=== PATIENT | male | born 1940 | race Caucasian/White ===

== ENCOUNTER → 2017-09-08 10:13 | Outpatient (CLI) | payer MEDICARE, BC, SELFPAY ==
[2017-09-08 12:00] LABS: AST(SGOT) 18 U/L (15-37); Alanine Aminotransfer ALT/SGPT 26 U/L (16-61); Albumin, Serum 4.1 g/dL (3.2-5.0); Alkaline Phosphatase 67 U/L (45-117); Bilirubin, Direct 0.35 mg/dL (0.00-0.30); Cholesterol 119 mg/dL (200); Globulin 3.2 g/dL (2.2-4.2); High Density Lipoprotein 34 mg/dL; Protein, Total 7.3 g/dL (6.4-8.2); Triglycerides 180 mg/dL; Very Low Density Lipoprotein 36 mg/dL (5-40)
== END ==
PROVIDERS: Family Provider Family Medicine; PCP Family Medicine; Visit Provider Internal Medicine Cardiovascular Disease
DX: E78.5 Hyperlipidemia, unspecified (principal); Z79.899 Other long term (current) drug therapy
CPT/HCPCS: 36415; 80061; 80076

== ENCOUNTER → 2017-09-23 12:51 | Outpatient (CLI) | payer MEDICARE, BC, SELFPAY ==
--- NOTE | 2017-10-06 11:31 | LEAS ---
Arterial Study - Arterial Study Arterial Study: next Date of scan 09/23/[address] Nolen History: Patient with some mild claudication type symptoms with known previous heart disease. Interpretation: Right lower extremity with normal pulsatile flow from the thigh down to the calf ankle out through the digits duplex at the ankle shows what appears to be triphasic waveform and BREANNA 1.15 the PT 1.13 of the DP. Next Left lower extremity with normal pulsatile flow down from the thigh calf ankle out through the digits duplex shows triphasic flow at the ankle with an BREANNA 1.06 of the PT 1.1 to the DP Impression: 1. Bilateral lower extremities with no evidence of significant arterial occlusive disease at rest with an BREANNA 1.15 in the right 1.12 on the left
== END ==
PROVIDERS: Family Provider Family Medicine; PCP Family Medicine; Visit Provider Physician Assistant Medical
DX: I73.9 Peripheral vascular disease, unspecified (principal)
CPT/HCPCS: 93923

== ENCOUNTER → 2018-04-13 09:49 | Outpatient (CLI) | payer MEDICARE, BC, SELFPAY ==
[2018-04-13 10:31] LABS: AST(SGOT) 27 U/L (15-37); Alanine Aminotransfer ALT/SGPT 28 U/L (16-61); Albumin, Serum 4.1 g/dL (3.2-5.0); Alkaline Phosphatase 61 U/L (45-117); Bilirubin, Direct 0.36 mg/dL (0.00-0.30); Cholesterol 111 mg/dL (200); Globulin 3.1 g/dL (2.2-4.2); High Density Lipoprotein 38 mg/dL; Protein, Total 7.2 g/dL (6.4-8.2); Triglycerides 137 mg/dL; Very Low Density Lipoprotein 27 mg/dL (5-40)
--- OUTSIDE RECORDS SUMMARY | 2018-06-18 02:06 | XMS RPT_ITS ---
:1940 Author Organization OHIP Care Team Providers Name Role Phone Sujit Porrasril Attending Unavailable Chiquita, [place] Referring Unavailable ASAEL, LOREN Primary Care Unavailable Rohini Ascencio Attending Unavailable Rohini Ascencio Referring Unavailable ASAEL, LOREN Primary Care Unavailable Rohini Ascencio Attending Unavailable ASAEL LOREN Referring Unavailable ASAEL, LOREN Primary Care Unavailable Annamaria Austin Attending Unavailable Chiquita, [place] Attending Unavailable Chiquita, Pastor Referring Unavailable NAANDRESSA, LOREN Primary Care Unavailable Rohini Ascencio Attending Unavailable Chiquita, Pastor Attending Unavailable ASAEL LOREN Referring Unavailable PROBLEMS PROBLEMS DATE TYPE CONDITION / CODE ATTENDING STATUS SOURCE 04/21/2018 Unknown Z98.890 - Other Chiquita, [place] Active [place] [facility] states / Repository Z98.890(ICD-10) 04/21/2018 Unknown Z95.3 - Presence of Chiquita, [place] Active [place] xenogenic heart [facility] valve / Hospital Z95.3(ICD-10) Repository 04/21/2018 Unknown Z95.1 - Presence of Chiquita, Pastor Active [place] aortocoronary bypass [facility] graft / Hospital Z95.1(ICD-10) Repository 04/21/2018 Unknown E78.00 - Pure Chiquita, [place] Active [place] hypercholesterolemia Community , unspecified / Hospital E78.00(ICD-10) Repository 04/21/2018 Unknown E78.5 - Chiquita, Pastor Active [place] Hyperlipidemia, Community unspecified / Hospital E78.5(ICD-10) Repository 09/15/2017 Unknown I73.9 - Peripheral Ascencio, Active [place] vascular disease, Rohini Madsen [facility] unspecified / Hospital I73.9(ICD-10) Repository PROCEDURES PROCEDURES No Procedure Records FoundRESULTS RESULTS CARDIOLOGY VISIT Observed: 04/21/2018 Status: F Source: [place] REPORT 10:43 AM [facility] REPOSITORY [facility] [address] [place] [address]. [address] [place] [address] OFFICE VISIT Date of Service: 04/21/18 MR#: [id number] Acct: [id number] Name: MAXIMILIANO GUZMAN Rep #: [id number] : 1940 Provider: Pastor Porras MD Age/Sex: 78/M Location: [facility] Status: Signed HPI HPI Chief Complaint: Follow up Details: MAXIMILIANO GUZMAN, is a 78 M who presents to the office today for a cardiovascular follow-up. He has a history of coronary artery disease with history of bypass surgery. He had an ESTRELLA to the LAD. He also has a history of aortic valve disease with a [place] bioprosthetic aortic valve. From a cardiac standpoint, patient is doing well. He does complain of leg fatigue when he walks, he finds that he needs to stop and rest before resuming. He has also been shoveling snow and has not had any problems regarding this. He does not have any chest discomfort/heaviness/tightness. His exercise tolerance is stable for his age. He does not have any worsening symptoms of shortness of breath. He denies any PND. He does not have any orthopnea. He does not have any symptoms of congestive heart failure. He does not have any palpitations that he is aware of. He has had some occasional chest discomfort which I do not think his coronary in origin. He does not have any lightheadedness or dizziness. He does not have any near-syncope or syncope. He does not have any lower extremity edema. His physical exam demonstrates clear lung llanos regular rate and rhythm a soft 1/6 systolic murmur noted left sternal border and no pedal edema. 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 Accompanied by: none Is patient in pain?: Yes Allergies Penicillins Allergy (Intermediate, Verified 04/21/18 10:20) rash sulfamethoxazole [From Bactrim] Allergy (Intermediate, Verified 04/21/18 10:20) rash trimethoprim [From Bactrim] Allergy (Intermediate, Verified 04/21/18 10:20) rash lidocaine Allergy (Unknown, Verified 04/21/18 10:20) unknown acetaminophen [From Percocet] Adverse Reaction (Intermediate, Verified 04/21/18 10:20) GI upset oxycodone [From Percocet] Adverse Reaction (Intermediate, Verified 04/21/18 10:20) GI upset Medications aspirin 81 mg tablet,delayed release 81 mg PO QDAY 03/11/17 [History Confirmed 04/21/18] atorvastatin 10 mg tablet 10 mg PO QDAY #30 tab 03/26/17 [Rx Confirmed 04/21/18] metoprolol tartrate 25 mg tablet 25 mg PO .COMPLEX #30 tab 03/26/17 [Rx Confirmed 04/21/18] clindamycin HCl 300 mg capsule 300 mg PO .COMPLEX #2 cap 06/22/17 [Rx Confirmed 04/21/18] nitroglycerin 0.4 mg sublingual tablet 0.4 mg SUBLINGUAL Q5- 15M PRN #25 tab 06/22/17 [Rx Confirmed 04/21/18] multivitamin tablet 1 tab PO DAILY 04/21/18 [History Confirmed 04/21/18] [facility] Medical History Atherosclerotic heart disease of [place] coronary artery without angina pectoris (Chronic) Nonrheumatic aortic (valve) stenosis (Chronic) Hx of renal calculi (Resolved) Surgical History History of ear surgery (Resolved) Hx of cholecystectomy (Resolved) H/O aortic valve replacement (Chronic 07/17/05) History of coronary artery bypass graft x 1 (Chronic 07/17/05) History of left heart catheterization (Chronic 03/29/10) History of aortic valve replacement with bioprosthetic valve (Chronic) Hx of fracture of ankle (Resolved) Hx of vasectomy (Resolved) Family History Mother , age 82 lung problems No problems noted. Father , age 40 ruptured appendix No problems noted. Social History Smoking Status: Former smoker alcohol intake: never caffeine: Yes Type: coffee Number of servings: 2 ROS Const Const: Negative for fatigue, weakness, night sweats, excessive sweating, frequent falls, headache(s) or daytime sleepiness Eyes Eyes: Negative for loss of peripheral vision, transient loss of vision, blind spots, double vision or blurry vision ENT ENT: Negative for headache(s), dizziness, balance problems, Nosebleed/epistaxis, tongue swelling or lip swelling Cardio Chest Pain: Yes (patient states he gets occasional chest pain when it gets cold outside) Frequency: weekly Duration: minutes Palpitations: No Edema: None, Bilateral Muscle aches with walking: None Resp Respiratory: Positive for SOB at rest and SOB with activity; negative for SOB orthopnea\SOB lying down, Cough or paroxysmal nocturnal dyspnea GI GI: Negative nausea, vomiting, heartburn, black,tarry stools or bright, red blood in stools : Negative for hematuria Musc Musc: Negative for balance problems, muscle aches/ myalgia, muscle weakness or joint pain Skin Skin: Negative non-healing lesions, unusual bruising or rash Neuro Neuro: Negative for weakness, frequent falls, headache(s), double vision, dizziness, lightheadedness, orthostatic symptoms, blurry vision or lack of coordination Adi Hematologic/Lymphatic: Negative for easy bruising or easy bleeding Endo Endo: Negative for fatigue, excessive sweating, cold intolerance, heat intolerance, increased thirst/drinking or hair loss Psych Psych: Negative for anxiety or depression Allergy Allergy/Immunology: Negative for throat swelling, Negative for tongue swelling, Negative for hives, Negative for rash, Negative for lip swelling Cardiology Exam Const Appearance: cooperative, healthy appearing, well developed, well groomed and no acute distress Nutritional Appearance: well nourished and average body habitus Orientation: alert, awake and oriented x3 Head Head: normal to inspection, normocephalic and atraumatic Ears: hearing grossly normal bilaterally and external ears normal Nose: external nose normal, nasal mucous membranes and turbinates normal, nares normal, septum normal, no nasal discharge Face and Sinus: face symmetric Mouth: oral mucosae normal, tongue normal, oropharynx normal and moist mucous membranes Teeth and gingiva: dentition normal Throat: posterior oropharynx normal, tonsils normal and uvula midline Eyes General: appearance normal, both eyes and all related structures Eyelids: eyelids normal Conjunctivae: conjunctivae normal Pupils: PERRL, normal by confrontation and accommodation normal EOM: EOM intact bilaterally Neck Neck: normal visual inspection, trachea midline and no JVD JVD: +5 Carotids: normal carotid upstroke and bounding pulses Chest Chest inspection: normal inspection of the chest, symmetric chest movement and normal respiratory effort Auscultation: Bilateral: Clear to Auscultation Cardio Palpation: normal PMI Rate: regular rate Rhythm: regular rhythm Heart sounds: S1 normal, S2 normal and normal, physiologic split S2; negative rub, gallop or murmur GI GI: normal to inspection, soft, no hepatosplenomegaly and bowel sounds present Neuro General: alert, awake, oriented x3, no focal sensory deficit, gait normal and moves all extremities Skin Skin: no rashes or lesions noted Extremities Pulses: Normal: Right Femoral Pulse, Left Femoral Pulse, Right Dorsalis Pedis Pulse, Left Dorsalis Pedis Pulse, Right Posterior Tibial Pulse, Left Posterior Tibial Pulse, Right Radial Pulse, Left Radial Pulse Lower Extremity Edema: None: Bilateral Musculoskel Musculoskeletal: No joint tenderness Psych Psychological: normal affect Assessment AND Plan 1. History of aortic valve replacement with bioprosthetic valve Z95.3 Plan He does have a history of aortic valve replacement with a bioprosthetic valve. His last echocardiographic evaluation was 3 years ago and I recommend that we repeat this. His aortic bioprosthetic valve was placed in 2005. He will continue with antibiotic prophylaxis. 2. History of coronary artery bypass graft x 1 Z95.1 Plan He is status post coronary artery bypass surgery. He has had no evidence of angina the plan is for him to continue the current medical therapy his last stress test was in 2016 during which no evidence of angina or ischemia was noted. Wanted to 3. Pure hypercholesterolemia E78.00 Plan He does have a history of hyperlipidemia. He has been taking his atorvastatin half a tablet every other day and I am suggesting that he take 1 tablet equaling 10 mg every other day his most recent lipid profile demonstrated a total cholesterol 111, HDL of 38 and LDL of 46. Thank you for allowing me to participate in the care of your patient. Please don't hesitate to call if any issues arise Plan Detail Other Orders Orders: Other Medications New: Follow Up 6 Months (mmm) Coding Level of Care Code Off vis,est,level 3 Diagnoses History of aortic valve replacement with bioprosthetic valve Z95.3 History of coronary artery bypass graft x 1 Z95.1 Pure hypercholesterolemia E78.00 Hyperlipidemia type: pure hypercholesterolemia Coding Level of Care Code Off vis,est,level 3 Diagnoses History of aortic valve replacement with bioprosthetic valve Z95.3 History of coronary artery bypass graft x 1 Z95.1 Pure hypercholesterolemia E78.00 Hyperlipidemia type: pure hypercholesterolemia Supplemental Info Supplemental Information Labs LDL Cholesterol 46 mg/dL (0-130) 04/13/18 HDL Cholesterol 38 mg/dL (40-) L 04/13/18 Triglycerides 137 mg/dL (-199) 04/13/18 VLDL Cholesterol 27 mg/dL (5-40) 04/13/18 Diagnostics Echocardiogram 04/01/15 Stress Test Nuclear Medicine 03/09/16 Chest X-Ray 03/12/17 04/21/18 1043 <Electronically signed by Pastor Porras MD> Date Pastor Porras MD Cosigner Signature: Date (if applicable) CC: Loren Brunson MD LIVER PROFILE Collected: 04/13/2018 Status: F Source: [place] 9:54 AM [facility] REPOSITORY TYPE CODE TESTS RESULT OUT OF RANGE REFERENCE UNITS LAB L501.1500 6.4-8.2 g/dL Normal T PROT 7.2 LAB L501.1800 3.2-5.0 g/dL Normal ALB 4.1 LAB L501.1950 2.2-4.2 g/dL Normal GLOB 3.1 LAB L501.4100 15-37 U/L Normal AST 27 Result Comment: Moderate Hemolysis, Result may be falsely increased. LAB L501.4305 45-117 U/L Normal ALK P 61 LAB L501.4405 16-61 U/L Normal ALT 28 LAB L501.4600 0.20-1.00 mg/dL High T BILI 2.30 LAB L501.4700 0.00-0.30 mg/dL High D BILI 0.36 Performed By: #### L500.3400, L500.4100 #### [facility] [address] [place], [address] LIPID PROFILE Collected: 04/13/2018 Status: F Source: [place] 9:54 AM [facility] REPOSITORY TYPE CODE TESTS RESULT OUT OF RANGE REFERENCE UNITS LAB L501.4900 200 mg/dL Normal CHOL 111 Result Comment: <200 mg/dL Desirable 200-240 mg/dL Borderline >240 mg/dL High Risk LAB L501.5000 mg/dL Normal TRIG 137 Result Comment: The drugs N-Acetylcysteine and Metamizole may falsely depress this assay. Serum Triglycerides Reference Interval Normal <150 mg/dL Borderline high 150 - 199 mg/dL High 200 - 499 mg/dL Very High > or = 500 mg/dL LAB L501.6400 mg/dL Low HDL 38 Result Comment: The drugs N-Acetylcysteine and Metamizole may falsely depress this assay. Reference Range HDL <40 mg/dL Low HDL Cholesterol HDL >or= 60 mg/dL High HDL Cholesterol LAB L501.6500 0-130 mg/dL Normal LDL 46 LAB L501.6600 5-40 mg/dL Normal VLDL 27 Performed By: #### L500.3400, L500.4100 #### [facility] [address] [place], [address] LOWER EXT ARTERIAL Observed: 10/06/2017 Status: F Source: [place] STUDY 11:33 AM [facility] REPOSITORY [facility] Cardiovascular Services [address] [address] 10/06/17 1131 MR#: [id number] Acct: [id number] Name: MAXIMILIANO GUZMAN Rep #: [id number] : 1940 77 From: Tao Nolen MD Attending Dr: Rohini Ascencio Status: REG CLI Ordering Dr: Date: 10/06/17 Location: [facility] Sex: M C Admitted: Arterial Study - Arterial Study Arterial Study: next Date of scan 09/23/[address] Nolen History: Patient with some mild claudication type symptoms with known previous heart disease. Interpretation: Right lower extremity with normal pulsatile flow from the thigh down to the calf ankle out through the digits duplex at the ankle shows what appears to be triphasic waveform and BREANNA 1.15 the PT 1.13 of the DP. Next Left lower extremity with normal pulsatile flow down from the thigh calf ankle out through the digits duplex shows triphasic flow at the ankle with an BREANNA 1.06 of the PT 1.1 to the DP Impression: 1. Bilateral lower extremities with no evidence of significant arterial occlusive disease at rest with an BREANNA 1.15 in the right 1.12 on the left 10/06/17 1133 <Electronically signed by Tao Nolen MD> Date Tao Nolen MD CC: Loren Brunson MD; Rohini Ascencio Date Dictated: 10/06/17 113 Date Transcribed: 10/06/17 113 Side Piece Coverer: OTTO Signed CARDIOLOGY VISIT Observed: 09/16/2017 Status: F Source: [place] REPORT 7:46 AM [facility] REPOSITORY [facility] [address] [place] [address] OFFICE VISIT Date of Service: 09/15/17 MR#: [id number] Acct: [id number] Name: MAXIMILIANO GUZMAN Rep #: [id number] : 1940 Provider: Rohini Ascencio Age/Sex: 77/M Location: [facility] Status: Signed HPI HPI Details: MAXIMILIANO GUZMAN, is a 77 M who presents to the office today for cardiovascular follow-up. He has a history of coronary artery disease with history of bypass surgery. He had an ESTRELLA to the LAD. He also has a history of aortic valve disease with a [place] bioprosthetic aortic valve. From a cardiac standpoint, patient is doing well. He does complain of leg fatigue when he walks, he finds that he needs to stop and rest before resuming. He does not have any chest discomfort/heaviness/tightness. His exercise tolerance is stable for his age. He does not have any worsening symptoms of shortness of breath. He denies any PND. He does not have any orthopnea. He does not have any symptoms of congestive heart failure. He does not have any palpitations that he is aware of. He does not have any lightheadedness or dizziness. He does not have any near-syncope or syncope. He does not have any lower extremity edema. Intake Vital Signs09/15/17 Height 5 ft 11 in 09/15/17 Weight: 217 lb 09/15/17 Body Mass Index (BMI) 30.2 Intake Visit Reasons: 6 M FU Accompanied by: none Is patient in pain?: No Allergies Penicillins Allergy (Intermediate, Verified 03/12/17 09:15) rash sulfamethoxazole [From Bactrim] Allergy (Intermediate, Verified 03/12/17 09:15) rash trimethoprim [From Bactrim] Allergy (Intermediate, Verified 03/12/17 09:15) rash lidocaine Allergy (Unknown, Unverified 03/12/17 09:15) unknown acetaminophen [From Percocet] Adverse Reaction (Intermediate, Verified 03/12/17 09:15) GI upset oxycodone [From Percocet] Adverse Reaction (Intermediate, Verified 03/12/17 09:15) GI upset Medications aspirin 81 mg tablet,delayed release 81 mg PO QDAY 03/11/17 [History Confirmed 09/15/17] atorvastatin 10 mg tablet 10 mg PO QDAY #30 tab 03/26/17 [Rx Confirmed 09/15/17] metoprolol tartrate 25 mg tablet 25 mg PO .COMPLEX #30 tab 03/26/17 [Rx Confirmed 09/15/17] clindamycin HCl 300 mg capsule 300 mg PO .COMPLEX #2 cap 06/22/17 [Rx Confirmed 09/15/17] nitroglycerin 0.4 mg sublingual tablet 0.4 mg SUBLINGUAL Q5- 15M PRN #25 tab 06/22/17 [Rx Confirmed 09/15/17] Ejection fraction %: 55 to 59 PFSH Medical History Atherosclerotic heart disease of [place] coronary artery without angina pectoris (Chronic) History of aortic valve replacement with bioprosthetic valve (Chronic) Nonrheumatic aortic (valve) stenosis (Chronic) Hx of renal calculi (Resolved) Surgical History History of ear surgery (Resolved) Hx of cholecystectomy (Resolved) H/O aortic valve replacement (Chronic 07/17/05) History of coronary artery bypass graft x 1 (Chronic 07/17/05) History of left heart catheterization (Chronic 03/29/10) Hx of fracture of ankle (Resolved) Hx of vasectomy (Resolved) Family History Mother , age 82 lung problems No problems noted. Father , age 40 ruptured appendix No problems noted. Social History Smoking Status: Former smoker alcohol intake: never caffeine: Yes Type: coffee Number of servings: 2 ROS Const Const: Negative for weakness, fatigue, fever(s) or headache(s) Eyes Eyes: Negative for blind spots, loss of peripheral vision or transient loss of vision ENT ENT: Negative for headache(s), dizziness, tinnitus or Nosebleed/epistaxis Cardio Chest Pain: No Palpitations: No Edema: None Muscle aches with walking: Bilateral Resp Respiratory: Negative for SOB with activity, SOB at rest, SOB orthopnea\SOB lying down or Cough GI GI: Negative nausea, vomiting, heartburn or vomiting blood/hematemesis : Negative for hematuria Musc Musc: Negative for muscle aches/ myalgia Neuro Neuro: Negative for weakness, headache(s), dizziness, near syncope, syncope, lightheadedness or orthostatic symptoms Adi Hematologic/Lymphatic: Negative for easy bleeding Endo Endo: Negative for fatigue Cardiology Exam Const Appearance: cooperative, no acute distress and well developed Orientation: alert, awake and oriented x3 Head Head: normocephalic and atraumatic Mouth: moist mucous membranes Eyes General: appearance normal, both eyes and all related structures Conjunctivae: conjunctivae normal Pupils: PERRL EOM: EOM intact bilaterally Neck Neck: normal visual inspection, no lymphadenopathy and no JVD Carotids: Negative bruit Neck Mass: Negative Neck mass Chest Chest inspection: normal inspection of the chest, symmetric chest movement and midline sternotomy incision Auscultation: Bilateral: Clear to Auscultation Cardio Palpation: normal PMI Rate: regular rate Rhythm: regular rhythm Heart sounds: S1 normal, S2 normal and murmur; negative rub or gallop Murmur: soft, Grade 2/6 and mid systolic GI GI: normal to inspection, soft, no hepatosplenomegaly and bowel sounds present; negative tender Neuro General: alert, awake, oriented x3, CN's II-XI intact bilaterally and moves all extremities Extremities Pulses: Normal: Right Posterior Tibial Pulse, Left Posterior Tibial Pulse, Right Radial Pulse, Left Radial Pulse Lower Extremity Edema: None: Bilateral Psych Psychological: normal affect Supplemental Info Echocardiogram in 2016 demonstrated Normal LV size. Left ventricular systolic function is normal. The estimated ejection fraction is 55 %. Mild to moderately dilated aortic root. Mild aortic stenosis. Calculated aortic valve area (continuity equation) is 1.7cm Compared to prior study, there is no significant change. Stress test in 2016 was negative for ischemia at a moderate workload. Assessment AND Plan 1. Atherosclerosis of [place] coronary artery of [place] heart without angina pectoris I25.10 RONDA Hoyos Stable, from a cardiac standpoint patient does not have any symptoms of angina. We recommend that they continue with current aggressive medical management and risk factor modification. 2. Nonrheumatic aortic (valve) stenosis I35.0 RONDA Hoyos Recent echocardiogram has been reviewed. He does have a bioprosthetic aortic valve. He will continue with antibiotic prophylaxis. We will continue to monitor by history, exam and echocardiograms as deemed appropriate. 3. Pure hypercholesterolemia E78.00; E78.0 RONDA Hoyos Recent lipid profile demonstrates total cholesterol 119, HDL 34, LDL 49. Patient will continue with current medical management. 4. 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 Will obtain lower extremity arterial studies. Orders Orders: Plan Detail Additional Comments - RONDA Erazo The above patient was discussed with Dr. Porras, he agrees with plan of care. Thank you for allowing us to participate in patient's plan of care, if you have any questions please do not hesitate to call. This note was generated using a voice recognition system and there may be incorrect words, spelling or punctuation errors that were not noted when reviewing the office note prior to saving. Follow Up 6 Months (INPATIENT CODER) Coding Level of Care Code Off vis,est,level 4 Diagnoses Atherosclerosis of [place] coronary artery of [place] heart without angina pectoris I25.10 [place] vs. 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 09/15/17 1126 <Electronically signed by Rohini BOND> Date Rohini BOND 09/16/17 0746<Electronically signed by Pastor Porras MD> Cosigner Signature: Date (if applicable) Pastor Porras MD CC: Loren Brunson MD LIVER PROFILE Collected: 09/08/2017 Status: F Source: [place] 10:19 AM [facility] REPOSITORY TYPE CODE TESTS RESULT OUT OF RANGE REFERENCE UNITS LAB L501.1500 6.4-8.2 g/dL Normal T PROT 7.3 LAB L501.1800 3.2-5.0 g/dL Normal ALB 4.1 LAB L501.1950 2.2-4.2 g/dL Normal GLOB 3.2 LAB L501.4100 15-37 U/L Normal AST 18 LAB L501.4305 45-117 U/L Normal ALK P 67 LAB L501.4405 16-61 U/L Normal ALT 26 LAB L501.4600 0.20-1.00 mg/dL High T BILI 1.80 LAB L501.4700 0.00-0.30 mg/dL High D BILI 0.35 Performed By: #### L500.3400, L500.4100 #### [facility] [address] [place], [place], [id number] LIPID PROFILE Collected: 09/08/2017 Status: F Source: [place] 10:19 AM [facility] REPOSITORY TYPE CODE TESTS RESULT OUT OF RANGE REFERENCE UNITS LAB L501.4900 200 mg/dL Normal CHOL 119 Result Comment: <200 mg/dL Desirable 200-240 mg/dL Borderline >240 mg/dL High Risk LAB L501.5000 mg/dL Normal TRIG 180 Result Comment: The drugs N-Acetylcysteine and Metamizole may falsely depress this assay. Serum Triglycerides Reference Interval Normal <150 mg/dL Borderline high 150 - 199 mg/dL High 200 - 499 mg/dL Very High > or = 500 mg/dL LAB L501.6400 mg/dL Low HDL 34 Result Comment: The drugs N-Acetylcysteine and Metamizole may falsely depress this assay. Reference Range HDL <40 mg/dL Low HDL Cholesterol HDL >or= 60 mg/dL High HDL Cholesterol LAB L501.6500 0-130 mg/dL Normal LDL 49 LAB L501.6600 5-40 mg/dL Normal VLDL 36 Performed By: #### L500.3400, L500.4100 #### [facility] [address] [facility]. [place], [place], [address] ALLERGIES ALLERGIES DATE TYPE / CODE NAME / CODE REACTION SEVERITY SOURCE 04/21/2018 Drug Penicillins/ Rash MO [facility] Allergy/4160 [id number]([facility] 35953(SNOMED XNORM) Repository CT) 04/21/2018 Drug lidocaine/F0 Unknown Unknown [facility] Allergy/4160 [id number]([facility] [address]75(SNOMED ORM) Repository CT) 04/21/2018 Drug oxycodone/F0 gi upset [facility] Allergy/4160 [id number]([facility] [address](SNOMED ORM) Repository CT) 04/21/2018 Drug acetaminophe gi upset [facility] Allergy/4160 n/[id number] [facility](SNOMED (RXNORM) Repository CT) 04/21/2018 Drug sulfamethoxa Rash [facility] Allergy/4160 zole/[id number] [facility](SNOMED 827(RXNORM) Repository CT) 04/21/2018 Drug trimethoprim Rash [place] [facility] [place] [facility] Allergy/4160 /[id number]( [facility](SNOMED RXNORM) Repository CT) ENCOUNTERS ENCOUNTERS ADMIT/DISCHARGE ACCOUNT ADMITTING ENCOUNTER LOCATION SOURCE NUMBER CLASS 04/21/2018/ [id number] Ambulatory BMSBuilding:B [facility] 8 [place].[facility] Repository 04/13/2018 [id number] Ambulatory [facility] 0 [facility] ing:LAB Repository 09/23/2017 [id number] Amb[place] [facility] ing:[facility] Repository 09/15/2017/ [id number] Ambulatory BMSBuilding:B [place] 8 6 [place].[facility] Repository 09/10/2017 [id number] Ambulatory B[place] 8 [facility] Repository 09/10/2017 [id number] Ambulatory BMSBuilding:B [place] 9 [place].[facility] Repository 09/08/2017 [id number] Ambulatory [place] 6 [facility] ing:LAB Repository PAYERS PAYERS ENCOUNTER GUARANTOR PAYER SUBSCRIBER SOURCE 04/21/2018 MAXIMILIANO Amezcua Primary MAXIMILIANO [facility] [id number] Insurance:MEDICARE JONESDOB: [facility] ALCIRA PART A [facility] [id number] Number: Repository [id number]: [phone] [id number] [phone] () Date:2017-09-15 04/21/2018 Secondary MAXIMILIANO [place] Insurance:ANTHEMPolic JONESDOB: [facility] y Number: [id number] [id number] Repository Date:0910-53-[address], [place] [address]IQ: 04/21/2018 Tertiary NOT GIVENUNK [place] Insurance:SELF PAY [facility] Number: Effective Repository Date:2018-04-21 04/13/2018 MAXIMILIANO A Primary MAXIMILIANO A [place] [id number] Insurance:MEDICARE JONESDOB: Community ALCIRA PART A [facility] [id number] Number: Repository [id number]: [phone] [id number] [phone] (HP) Date:2018-04-13 04/13/2018 Secondary MAXIMILIANO A [place] Insurance:ANTHEMPolic JONESDOB: Community y Number: [id number] [id number] Repository Date:8000-39-52[address], [place] [address]VT: 04/13/2018 Tertiary NOT GIVENUNK [place] Insurance:SELF PAY [facility] Number: Effective Repository Date:2018-04-13 09/23/2017 MAXIMILIANO A Primary MAXIMILIANO A [place] [id number] Insurance:MEDICARE JONESDOB: Community ALCIRA PART A [facility] [id number] Number: Repository [id number]: [phone] [id number] [phone] (HP) Date:2017-09-15 09/23/2017 Secondary MAXIMILIANO A [place] Insurance:ANTHEMPolic JONESDOB: Community y Number: [id number] Hospital [id number] Repository Date:9279-34-63[address], [place] [address]EF: 09/23/2017 Tertiary NOT GIVENUNK [place] Insurance:SELF PAY [facility] Number: Effective Repository Date:2017-09-15 09/15/2017 MAXIMILIANO A Primary MAXIMILIANO A [place] [id number] Insurance:MEDICARE JONESDOB: Community ALCIRA PART A [facility] [id number] Number: Repository [id number]: [phone] [id number] [phone] (HP) Date:2017-08-16 09/15/2017 Secondary MAXIMILIANO A [place] Insurance:ANTHEMPolic JONESDOB: Community y Number: [id number] Hospital [id number] Repository Date:6960-82-91[address] [place] [address] [place] [address]VU: 09/15/2017 Tertiary NOT GIVENUNK [place] Insurance:SELF PAY [facility] Number: Effective Repository Date:2017-09-15 09/10/2017 MAXIMILIANO A Primary MAXIMILIANO A [place] [id number] Insurance:MEDICARE JONESDOB: Community ALCIRA PART A [facility] [id number] Number: Repository [id number]: [phone] [id number] [phone] () Date:2017-09-10 09/10/2017 Secondary MAXIMILIANO A [place] Insurance:ANTHEMPolic JONESDOB: Community y Number: [id number] Hospital [id number] Repository Date:8820-99-10SC [address] [place] [address]JS: 09/10/2017 Tertiary NOT GIVENUNK [place] Insurance:SELF PAY [facility] Number: Effective Repository Date:2017-09-10 09/10/2017 MAXIMILIANO A Primary MAXIMILIANO A [place] [id number] Insurance:MEDICARE JONESDOB: Community ALCIRA PART A [facility] [id number] Number: Repository [id number]: [phone] [id number] [phone] (HP) Date:2017-03-12 09/10/2017 Secondary MAXIMILIANO A [place] Insurance:ANTHEMPolic JONESDOB: Community y Number: [id number] Hospital [id number] Repository Date:1284-30-55[address], [place] [address]TN: 09/10/2017 Tertiary NOT GIVENUNK [place] Insurance:SELF PAY [facility] Number: Effective Repository Date:2017-03-12 09/08/2017 MAXIMILIANO A Primary MAXIMILIANO A [place] [id number] Insurance:MEDICARE JONESDOB: Community ALCIRA PART A [facility] [id number] Number: Repository [id number]: [phone] [id number] [phone] () Date:2017-09-08 09/08/2017 Secondary MAXIMILIANO A [place] Insurance:ANTHEMPolic JONESDOB: Community y Number: [id number] Hospital [id number] Repository Date:0588-66-81[facility] [place] [address]PM: 09/08/2017 Tertiary NOT GIVENUNK [place] Insurance:SELF PAY [facility] Number: Effective Repository Date:2017-09-08
== END ==
PROVIDERS: Family Provider Family Medicine; PCP Family Medicine; Referring Provider Internal Medicine Cardiovascular Disease; Visit Provider Internal Medicine Cardiovascular Disease
DX: E78.5 Hyperlipidemia, unspecified (principal)
CPT/HCPCS: 36415; 80061; 80076

== ENCOUNTER → 2018-05-06 07:48 | Outpatient (CLI) | payer MEDICARE, BC, SELFPAY ==
[2018-04-21 10:20] VITALS: BMI 30.2
--- NOTE | 2018-05-06 07:51 | ECHOD_ITS ---
Reason For Study: VALVE REPLACEMENT EVAL Procedure This was a 2D Doppler, Color Flow transthoracic echocardiogram. Exam performed in department. Left Ventricle Normal LV size. Mild concentric left ventricular hypertrophy. The estimated ejection fraction is 60 %. Stage 1 diastolic dysfunction. No regional wall motion abnormalities noted. Right Ventricle Normal RV size. Normal systolic function. Atria The left atrium is mildly enlarged. Normal right atrium. Mitral Valve Normal mitral valve. Mild-Moderate (1-2+) mitral valve insufficiency. Tricuspid Valve Normal tricuspid valve. Mild to moderate (1-2+) tricuspid valve insufficiency. Pulmonary artery systolic pressure is 42 mmHg. Aortic Valve Peak aortic valve gradient 65 mmHg. Mean aortic valve gradient 42 mmHg. Severe aortic stenosis. Calculated aortic valve area (continuity equation) is 0.6 cm2. Mild (1+) aortic valve insufficiency. Pulmonic Valve Normal pulmonic valve. Mild (1+) pulmonic valve insufficiency. Great Vessels Mild to moderately dilated aortic root. The pulmonary artery is normal size. Normal inferior vena cava. Pericardium/Pleural No pericardial effusion. MMode/2D Measurements & Calculations LVIDd: 5.6 cm IVSd: 1.2 cm LVOT diam: 2.0 cm LVIDs: 3.7 cm LVPWd: 1.2 cm LVOT area: 3.1 cm2 RVDd: 3.7 cm FS: 34.0 % Ao root diam: 4.8 cm LAV(MOD-bp): 73.0 ml LVAd ap4: 30.1 cm2 LAV(MOD-bp) Indexed: 33.1 ml/m2 EDV(MOD-sp4): 88.4 ml LAV(MOD-sp2): 72.3 ml EDV(sp4-el): 92.5 ml LAV(MOD-sp4): 71.8 ml LVAs ap4: 17.0 cm2 ESV(MOD-sp4): 35.1 ml ESV(sp4-el): 36.0 ml EF(MOD-sp4): 60.3 % EF(sp4-el): 61.1 % SV(MOD-sp4): 53.3 ml SV(sp4-el): 56.5 ml LA A4 area: 23.7 cm2 LA dimension(2D): 4.2 cm RA A4 area: 17.1 cm2 Time Measurements MV dec time: 0.18 sec Doppler Measurements & Calculations MV E max solitario: 93.9 cm/sec Lat Peak E' Solitario: 12.8 cm/sec Med Peak E' Solitario: 5.6 cm/sec MV A max solitario: 65.4 cm/sec E/E' lat: 7.3 E/E' med: 16.8 MV E/A: 1.4 Ao V2 max: 404.9 cm/sec AI max solitario: 503.1 cm/sec LV V1 max: 75.8 cm/sec Ao max P.8 mmHg AI max P.2 mmHg LV V1 max P.4 mmHg Ao V2 mean: 310.0 cm/sec LV V1 mean P.4 mmHg Ao mean P.1 mmHg AI dec slope: 187.4 cm/sec2 LV V1 mean: 56.1 cm/sec Ao V2 VTI: 98.8 cm AI P1/2t: 786.2 msec LV V1 VTI: 20.1 cm IBETH(I,D): 0.64 cm2 IBETH(V,D): 0.59 cm2 SV(LVOT): 63.1 ml PA V2 max: 97.1 cm/sec TR max solitario: 304.7 cm/sec TR max P.2 mmHg Interpretation Summary Normal LV size. Mild concentric left ventricular hypertrophy. The estimated ejection fraction is 60 %. Stage 1 diastolic dysfunction. Severe aortic stenosis. Mean aortic valve gradient 42 mmHg. Compared to the previous the appears to be worse. Ordering Physician: Pastor Porras Referring Physician: LOREN VYAS Performed By: Radha Best RDCS
== END ==
PROVIDERS: Family Provider Family Medicine; PCP Family Medicine; Referring Provider Internal Medicine Cardiovascular Disease; Visit Provider Internal Medicine Cardiovascular Disease
DX: Z98.890 Other specified postprocedural states (principal)
CPT/HCPCS: 93306

== ENCOUNTER → 2018-10-10 | Outpatient (CLI) | payer MEDICARE, BC, SELFPAY ==
[2018-04-21 10:20] VITALS: BMI 30.2
--- NOTE | 2018-10-10 08:26 | ECHOD_ITS ---
Reason For Study: Valve Replacement Eval Procedure This was a 2D Doppler, Color Flow transthoracic echocardiogram. Exam performed in department. Left Ventricle Normal LV size. Moderate concentric left ventricular hypertrophy. Left ventricular systolic function is normal. The estimated ejection fraction is 60 %. No regional wall motion abnormalities noted. Right Ventricle Normal RV size. Normal systolic function. Atria The left atrium is mildly enlarged. Normal right atrium. Mitral Valve Normal mitral valve. Mild-Moderate (1-2+) eccentric mitral valve insufficiency. Tricuspid Valve Normal tricuspid valve. Mild (1+) tricuspid valve insufficiency. Pulmonary artery systolic pressure is 38 mmHg. Aortic Valve Peak aortic valve gradient 86 mmHg. Mean aortic valve gradient 48 mmHg. Calculated aortic valve area (continuity equation) is 0.5 cm2. Critical aortic stenosis. Mild (1+) aortic valve insufficiency. Bioprosthetic aortic valve. Pulmonic Valve Normal pulmonic valve. Great Vessels Normal aortic root. The pulmonary artery is normal size. Normal inferior vena cava. Pericardium/Pleural No pericardial effusion. MMode/2D Measurements & Calculations LVIDd: 5.7 cm IVSd: 1.5 cm LVOT diam: 2.0 cm LVIDs: 3.7 cm LVPWd: 1.6 cm LVOT area: 3.2 cm2 FS: 35.2 % Ao root diam: 5.1 cm LAV(MOD-bp): 71.1 ml LA A4 area: 24.2 cm2 LA dimension: 4.2 cm LAV(MOD-bp) Indexed: 32.6 ml/m2 LAV(MOD-sp2): 58.0 ml LAV(MOD-sp4): 76.9 ml RA A4 area: 19.4 cm2 Time Measurements MV dec time: 0.17 sec Doppler Measurements & Calculations MV E max solitario: 95.5 cm/sec Lat Peak E' Solitario: 7.6 cm/sec Med Peak E' Solitario: 6.0 cm/sec MV A max solitario: 62.3 cm/sec E/E' lat: 12.6 E/E' med: 15.9 MV E/A: 1.5 MV V2 max: 102.7 cm/sec MV P1/2t max solitario: 102.7 cm/sec Ao V2 max: 464.4 cm/sec MV max P.2 mmHg MV P1/2t: 83.2 msec Ao max P.3 mmHg MV V2 mean: 51.3 cm/sec MV dec slope: 361.5 cm/sec2 Ao V2 mean: 323.0 cm/sec MV mean P.2 mmHg Ao mean P.1 mmHg MV V2 VTI: 34.0 cm MVA(P1/2t): 2.6 cm2 Ao V2 VTI: 105.8 cm MVA(VTI): 1.6 cm2 IBETH(I,D): 0.50 cm2 IBETH(V,D): 0.52 cm2 AI max solitario: 475.6 cm/sec LV V1 max: 75.2 cm/sec MR max solitario: 614.7 cm/sec AI max P.5 mmHg LV V1 max P.3 mmHg MR max P.2 mmHg LV V1 mean P.1 mmHg AI dec slope: 139.9 cm/sec2 LV V1 mean: 48.0 cm/sec AI P1/2t: 995.6 msec LV V1 VTI: 16.4 cm SV(LVOT): 53.3 ml PA V2 max: 75.1 cm/sec TR max solitario: 293.0 cm/sec TR max P.3 mmHg Interpretation Summary Normal LV size. Moderate concentric left ventricular hypertrophy. Left ventricular systolic function is normal. The estimated ejection fraction is 60 %. The left atrium is mildly enlarged. Mild-Moderate (1-2+) eccentric mitral valve insufficiency. Mild (1+) tricuspid valve insufficiency. Peak aortic valve gradient 86 mmHg. Mean aortic valve gradient 48 mmHg. Calculated aortic valve area (continuity equation) is 0.5 cm2. Critical aortic stenosis. Ordering Physician: Pastor Porras Referring Physician: Niles Brunson Performed By: William Pinto RCS
== END | disposition home or self-care (01) ==
LOC: CVS 08:24
PROVIDERS: Family Provider Family Medicine; PCP Family Medicine; Referring Provider Internal Medicine Cardiovascular Disease; Visit Provider Internal Medicine Cardiovascular Disease
DX: I25.10 Atherosclerotic heart disease of native coronary artery without angina pectoris (principal); I35.0 Nonrheumatic aortic (valve) stenosis; E78.5 Hyperlipidemia, unspecified; Z95.1 Presence of aortocoronary bypass graft; Z95.3 Presence of xenogenic heart valve; Z98.890 Other specified postprocedural states
CPT/HCPCS: 93306

== ENCOUNTER → 2018-10-12 09:00 | Outpatient (CLI) | payer MEDICARE, BC, SELFPAY ==
[2018-04-21 10:20] VITALS: BMI 30.2
[2018-10-12 10:17] LABS: AST(SGOT) 19 U/L (15-37); Alanine Aminotransfer ALT/SGPT 25 U/L (16-61); Alkaline Phosphatase 68 U/L (45-117); Bilirubin, Direct 0.34 mg/dL (0.00-0.30); Cholesterol 117 mg/dL (200); High Density Lipoprotein 36 mg/dL; Triglycerides 157 mg/dL; Very Low Density Lipoprotein 31 mg/dL (5-40)
== END ==
PROVIDERS: Family Provider Family Medicine; PCP Family Medicine; Referring Provider Internal Medicine Cardiovascular Disease; Visit Provider Internal Medicine Cardiovascular Disease
DX: E78.5 Hyperlipidemia, unspecified (principal)
CPT/HCPCS: 36415; 80061; 80076

== ENCOUNTER → 2018-10-21 14:50 | Outpatient (CLI) | payer MEDICARE, BC, SELFPAY ==
[2018-10-21 13:50] VITALS: BMI 29.7
--- NOTE | 2018-10-21 15:00 | RAD_ITS ---
HISTORY: SOB, PRE-OP HEART CATH AND VALVE REPLACEMENTHX OF CABG, AND ONE PREVIOUS VALVE REPLACEMENT EXAMINATION/TECHNIQUE: XR Chest 2 Views: COMPARISON: 03/12/17 CXR FINDINGS: LINES/DEVICES: None. LUNGS: No consolidation, edema or effusion. No pneumothorax. MEDIASTINUM AND CARDIOVASCULAR STRUCTURES: Cardiac silhouette not enlarged. Prominent tortuous thoracic aorta similar to previous. BONES AND SOFT TISSUES: No acute findings. Sternotomy wires. RAD/Chest PA and Lateral IMPRESSION: No radiographic evidence of acute cardiopulmonary disease. Prominent tortuous thoracic aorta similar to previous; thoracic aortic aneurysm is possible. at 2149 Reported and signed by: Iglesia Rivera MD Electronically Signed: Iglesia Rivera, at 21:48 EDT Tel , Service support ,
[2018-10-21 16:32] LABS: Absolute Lymphocyte Count 1.31 X10^3/uL (0.83-4.51); Absolute Neutrophil Count 6.4 X10^3/uL (2.0-7.7); Basophil# 0.07 X10^3/uL; Basophil% 0.8 % (0-1); Eosinophil# 0.24 X10^3/uL; Eosinophils% 2.7 % (0-5); Hematocrit 45.4 % (40-54); Hemoglobin 15.7 g/dL (13.0-16.5); Lymphocyte # 1.31 X10^3/ul (4.0); Lymphocyte % 14.6 % (19-41); Mean Corp Hgb Conc 34.6 g/dL (32-36); Mean Corpuscular Hgb 33.5 pg (27.0-32.0); Mean Platelet Vol. 10.4 fl (6.2-12.0); Monocyte# 0.97 X10^3/uL; Monocyte% 10.8 % (0-10); NRBC Flagged by Analyzer 0 % (0-5); Neutrophil # 6.37 X10^3/uL (2.7-7.7); Neutrophil % 70.7 % (47-70); Platelet Count 125 K/mm3 (150-450); RBC Distribution Width CV 12.5 % (11.6-14.6); RBC Distribution Width SD 44.4 fl (35.1-43.9); Red Blood Count 4.68 M/mm3 (4.6-6.2)
[2018-10-21 16:51] LABS: Anion Gap 3 (5-15); BUN 19 mg/dL (7-18); BUN/Creat Ratio 13.3 RATIO (10-20); Calcium,Total 9.2 mg/dL (8.5-10.1); Chloride 108 mmol/L (98-107); Creatinine, Serum 1.43 mg/dL (0.70-1.30); EST Glomerular Filtration Rate 51 mL/min (>60); Est Glom Filt Rate - Afr Amer 61 mL/min (>60); Glucose 91 mg/dL (74-106); Potassium 3.9 mmol/L (3.5-5.1); Sodium Level 136 mmol/L (136-145)
== END ==
PROVIDERS: Family Provider Family Medicine; PCP Family Medicine; Referring Provider Internal Medicine Cardiovascular Disease; Visit Provider Internal Medicine Cardiovascular Disease
DX: Z95.1 Presence of aortocoronary bypass graft (principal); Z95.3 Presence of xenogenic heart valve
CPT/HCPCS: 36415; 71046; 80048; 85025

== ENCOUNTER 2018-10-25 06:29 | Day surgery (SDC) | payer MEDICARE, BC, SELFPAY ==
[2018-10-21 13:50] VITALS: BMI 29.7
[2018-10-24 13:56] VITALS: BMI 29.7
--- NOTE | 2018-10-25 09:13 | CL.D_ITS ---
Patient Name: MAXIMILIANO GUZMAN Study Date: 10/25/2018 Performing: Pastor Porras MD Ht: 70.87 inches 180 cm : 1940 Wt: 210.1 lbs 95.3 kg Age: 78 Gender: male BSA: 2.15 Amended PROCEDURE(S) PERFORMED FB94-UBF/COR/CABG DC11-AO ROOT ANGIO WITH HEART CATH CLINICAL PROFILE AND INDICATIONS Indications: Valvular Disease Heart Failure: None Stress/Imaging Stress/Image Study Performed: No CAD Presentations: No Sxs, no angina. 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 RECOMMENDATIONS Surgery consult for Valve Replacement surgery DESCRIPTION OF PROCEDURE The patient arrived to the procedure lab. The risks and benefits of the procedure as well as a full d escription of our services here and current unavailability of surgical backup were fully explained to the patient and/or their significant other prior to the catheterization. The Timeout was completed, verifying the correct patient and procedure. The patient's procedural site was prepped and draped in the usual fashion. Local anesthetic was given subcutaneously to right groin region with Lidocaine 2%. Using a modified Seldinger technique, arterial access was obtained via the right femoral artery, a 5 Fr sheath was inserted. Left Coronary Artery selective angiography was performed in multiple views u sing a 6 Fr. JL 6-125cm catheter. Right Coronary Artery selective angiography was then performed in m ultiple views using a 6 Fr. JR 4-125cm catheter. Left internal mammary artery graft to the LAD select billy angiography was performed in multiple views using a 5 Fr. JR 4 catheter.The arterial sheath was pulled and manual compression applied until hemostasis is achieved. 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
== END 2018-10-25 14:35 | disposition home or self-care (01) ==
LOC: CLSP 06:30
PROVIDERS: Family Provider Family Medicine; PCP Family Medicine; Referring Provider Internal Medicine Cardiovascular Disease; Visit Provider Internal Medicine Cardiovascular Disease
DX: I25.10 Atherosclerotic heart disease of native coronary artery without angina pectoris (principal); I71.2 Thoracic aortic aneurysm, without rupture; I35.2 Nonrheumatic aortic (valve) stenosis with insufficiency; E78.00 Pure hypercholesterolemia, unspecified; R06.00 Dyspnea, unspecified; R42 Dizziness and giddiness; R53.83 Other fatigue; Z95.3 Presence of xenogenic heart valve; Z95.1 Presence of aortocoronary bypass graft; Z79.82 Long term (current) use of aspirin; Z79.899 Other long term (current) drug therapy; Z87.891 Personal history of nicotine dependence
CPT/HCPCS: 93455; 93567; 99152; 99153; J7040; C1769; C1894; Q9967

== ENCOUNTER → 2019-02-10 10:06 | Outpatient (CLI) | payer MEDICARE, BC, SELFPAY ==
[2019-02-10 07:59] VITALS: BMI 29.9
[2019-02-10 12:22] LABS: BNP,B-Type NATRIURETIC PEPTIDE 115.2 pg/mL (0-100)
[2019-02-10 12:23] LABS: AST(SGOT) 24 U/L (15-37); Alanine Aminotransfer ALT/SGPT 28 U/L (16-61); Albumin, Serum 4.2 g/dL (3.2-5.0); Alkaline Phosphatase 70 U/L (45-117); Anion Gap 7 (5-15); BUN 19 mg/dL (7-18); BUN/Creat Ratio 15.6 RATIO (10-20); Bilirubin, Direct 0.39 mg/dL (0.00-0.30); Calcium,Total 9.1 mg/dL (8.5-10.1); Chloride 105 mmol/L (98-107); Cholesterol 119 mg/dL (200); Creatinine, Serum 1.22 mg/dL (0.70-1.30); EST Glomerular Filtration Rate 61 mL/min (>60); Est Glom Filt Rate - Afr Amer 74 mL/min (>60); Globulin 2.9 g/dL (2.2-4.2); Glucose 92 mg/dL (74-106); High Density Lipoprotein 44 mg/dL; Potassium 3.8 mmol/L (3.5-5.1); Protein, Total 7.1 g/dL (6.4-8.2); Sodium Level 139 mmol/L (136-145); Triglycerides 105 mg/dL; Very Low Density Lipoprotein 21 mg/dL (5-40)
== END ==
PROVIDERS: Family Provider Family Medicine; PCP Family Medicine; Referring Provider Internal Medicine Cardiovascular Disease; Visit Provider Internal Medicine Cardiovascular Disease
DX: E78.00 Pure hypercholesterolemia, unspecified (principal); Z95.1 Presence of aortocoronary bypass graft; Z95.3 Presence of xenogenic heart valve
CPT/HCPCS: 36415; 80048; 80061; 80076; 83880

== ENCOUNTER → 2019-10-26 10:16 | Outpatient (CLI) | payer MEDICARE, BC, SELFPAY ==
[2019-10-26 09:31] VITALS: BMI 26.4
[2019-10-26 11:38] LABS: Absolute Lymphocyte Count 1.35 X10^3/uL (0.83-4.51); Absolute Neutrophil Count 5.1 X10^3/uL (2.0-7.7); Basophil# 0.07 X10^3/uL; Basophil% 0.9 % (0-1); Eosinophil# 0.23 X10^3/uL; Hematocrit 43.3 % (40-54); Lymphocyte # 1.35 X10^3/ul (4.0); Lymphocyte % 17.8 % (19-41); Mean Corp Hgb Conc 32.3 g/dL (32-36); Mean Corpuscular Hgb 31.3 pg (27.0-32.0); Mean Corpuscular Volume 96.7 fL (80-94); Mean Platelet Vol. 10.6 fl (6.2-12.0); Monocyte% 10.5 % (0-10); NRBC Flagged by Analyzer 0 % (0-5); Neutrophil % 67.3 % (47-70); Platelet Count 114 K/mm3 (150-450); RBC Distribution Width CV 14.1 % (11.6-14.6); RBC Distribution Width SD 49.5 fl (35.1-43.9); Red Blood Count 4.48 M/mm3 (4.6-6.2); White Blood Count 7.6 K/mm3 (4.4-11.0)
[2019-10-26 12:10] LABS: AST(SGOT) 27 U/L (15-37); Alanine Aminotransfer ALT/SGPT 21 U/L (16-61); Albumin, Serum 4.2 g/dL (3.2-5.0); Alkaline Phosphatase 68 U/L (45-117); Anion Gap 2 (5-15); BUN 21 mg/dL (7-18); BUN/Creat Ratio 15.6 RATIO (10-20); Bilirubin, Direct 0.35 mg/dL (0.00-0.30); Calcium,Total 8.9 mg/dL (8.5-10.1); Chloride 111 mmol/L (98-107); Cholesterol 97 mg/dL (200); Creatinine, Serum 1.35 mg/dL (0.70-1.30); EST Glomerular Filtration Rate 54 mL/min (>60); Est Glom Filt Rate - Afr Amer 66 mL/min (>60); Globulin 3.2 g/dL (2.2-4.2); Glucose 93 mg/dL (74-106); High Density Lipoprotein 43 mg/dL; Potassium 4.6 mmol/L (3.5-5.1); Protein, Total 7.4 g/dL (6.4-8.2); Sodium Level 140 mmol/L (136-145); Triglycerides 83 mg/dL; Very Low Density Lipoprotein 17 mg/dL (5-40)
== END ==
PROVIDERS: PCP Family Medicine; Referring Provider Internal Medicine Cardiovascular Disease; Visit Provider Internal Medicine Cardiovascular Disease
DX: E78.00 Pure hypercholesterolemia, unspecified (principal); E78.5 Hyperlipidemia, unspecified; S06.5X9A Traumatic subdural hemorrhage with loss of consciousness of unspecified duration, initial encounter; Z95.1 Presence of aortocoronary bypass graft
CPT/HCPCS: 36415; 80048; 80061; 80076; 85025

== ENCOUNTER → 2019-12-13 14:57 | Outpatient (CLI) | payer MEDICARE, BC, SELFPAY ==
[2019-12-13 13:06] VITALS: BMI 27.1
[2019-12-13 15:53] LABS: Absolute Lymphocyte Count 1.43 X10^3/uL (0.83-4.51); Absolute Neutrophil Count 5.4 X10^3/uL (2.0-7.7); Basophil# 0.06 X10^3/uL; Basophil% 0.7 % (0-1); Eosinophil# 0.24 X10^3/uL; Hematocrit 44.4 % (40-54); Hemoglobin 14.6 g/dL (13.0-16.5); Lymphocyte # 1.43 X10^3/ul (4.0); Lymphocyte % 17.7 % (19-41); Mean Corp Hgb Conc 32.9 g/dL (32-36); Mean Corpuscular Hgb 31.9 pg (27.0-32.0); Mean Corpuscular Volume 97.2 fL (80-94); Mean Platelet Vol. 9.8 fl (6.2-12.0); Monocyte# 0.86 X10^3/uL; Monocyte% 10.7 % (0-10); NRBC Flagged by Analyzer 0 % (0-5); Neutrophil # 5.44 X10^3/uL (2.7-7.7); Neutrophil % 67.5 % (47-70); Platelet Count 115 K/mm3 (150-450); RBC Distribution Width CV 14.2 % (11.6-14.6); RBC Distribution Width SD 50.9 fl (35.1-43.9); Red Blood Count 4.57 M/mm3 (4.6-6.2); White Blood Count 8.1 K/mm3 (4.4-11.0)
[2019-12-13 16:11] LABS: International Normalized Ratio 1.1; Prothrombin Time (Protime)PT. 13.5 SECONDS (11.7-14.9)
[2019-12-13 16:14] LABS: Anion Gap 5 (5-15); BUN 11 mg/dL (7-18); BUN/Creat Ratio 8.5 RATIO (10-20); Calcium,Total 9.2 mg/dL (8.5-10.1); Chloride 107 mmol/L (98-107); EST Glomerular Filtration Rate 57 mL/min (>60); Est Glom Filt Rate - Afr Amer 68 mL/min (>60); Glucose 91 mg/dL (74-106); Potassium 3.9 mmol/L (3.5-5.1); Sodium Level 140 mmol/L (136-145)
== END ==
PROVIDERS: PCP Family Medicine; Referring Provider Internal Medicine Cardiovascular Disease; Visit Provider Internal Medicine Cardiovascular Disease
DX: S06.5X9A Traumatic subdural hemorrhage with loss of consciousness of unspecified duration, initial encounter (principal); R51 Headache; R23.8 Other skin changes; I97.89 Other postprocedural complications and disorders of the circulatory system, not elsewhere classified; I48.91 Unspecified atrial fibrillation
CPT/HCPCS: 36415; 80048; 85025; 85610

== ENCOUNTER → 2019-12-15 15:39 | Outpatient (CLI) | payer MEDICARE, BC, SELFPAY ==
[2019-12-13 13:06] VITALS: BMI 27.1
--- NOTE | 2019-12-15 15:41 | CT_ITS ---
STUDY: CT BRAIN WITH AND WITHOUT CONTRAST REASON FOR EXAM: Male, 79 years old. Headache, history of previous subdural hematoma RADIATION DOSAGE (If Supplied By Facility): CTDIvol = ( 27.293 ) mGy, DLP = ( 1288.12 ) mGycm TECHNIQUE: Transaxial CT imaging of the brain was performed pre and post contrast administration. The examination was performed with intravenous administration of IV 100mL Isovue-300. Individualized dose optimization techniques were used for this CT. COMPARISON: None. FINDINGS: Normal soft tissue structures. Normal calvarium. Normal size ventricles and extra-axial spaces for the patient''s age. Normal white matter tracts of the cerebral hemispheres. Normal basal ganglia and thalami. Normal brainstem. Normal cerebellum. There is no intracranial hemorrhage. There are no findings of an acute ischemic infarction. Normal visualized paranasal sinuses. No suspicious enhancing lesion. CT/CTA Head W/WO Contrast IMPRESSION: Chronic involutional changes of the brain. No acute hemorrhage or suspicious enhancing lesion Electronically Signed: Darek Camacho MD at 17:35 EDT , Service support ,
== END ==
PROVIDERS: PCP Family Medicine; Referring Provider Internal Medicine Cardiovascular Disease; Visit Provider Internal Medicine Cardiovascular Disease
DX: R51 Headache (principal)
CPT/HCPCS: 70496; Q9967; A4216

== ENCOUNTER → 2020-02-27 09:18 | Outpatient (CLI) | payer MEDICARE, BC, SELFPAY ==
[2020-02-27 08:13] VITALS: BMI 30.2
[2020-02-27 10:09] LABS: Hematocrit 43.4 % (40-54); Hemoglobin 14.6 g/dL (13.0-16.5); Mean Corp Hgb Conc 33.6 g/dL (32-36); Mean Corpuscular Hgb 33.4 pg (27.0-32.0); Mean Corpuscular Volume 99.3 fL (80-94); Mean Platelet Vol. 10.2 fl (6.2-12.0); Platelet Count 105 K/mm3 (150-450); RBC Distribution Width CV 13.1 % (11.6-14.6); RBC Distribution Width SD 47.8 fl (35.1-43.9); Red Blood Count 4.37 M/mm3 (4.6-6.2); White Blood Count 9.1 K/mm3 (4.4-11.0)
== END ==
PROVIDERS: PCP Family Medicine; Referring Provider Psychiatry & Neurology Neurology; Visit Provider Psychiatry & Neurology Neurology
DX: I10 Essential (primary) hypertension (principal)
CPT/HCPCS: 36415; 85027

== ENCOUNTER 2020-04-16 09:55 | Day surgery (SDC) | payer MEDICARE, BC, SELFPAY ==
[2020-03-20 09:51] VITALS: BMI 27.6
[2020-04-12 09:32] VITALS: BMI 27.6
--- NOTE | 2020-04-15 05:07 | HP_ITS ---
HPI HPI History of Present Illness Details: This is a 79-year-old gentleman that presents here today for a cardiovascular follow-up. He has a history of coronary artery disease with history of bypass surgery. He had an ESTRELLA to the LAD. He also has a history of aortic valve disease with a Saint Indra bioprosthetic aortic valve. 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 Echocardiogram at that time demonstrated moderate concentric left ventricular hypertrophy, estimated ejection fraction of 60%, 1-2+ mitral regurgitation, 1+ tricuspid regurgitation, and an aortic valve with a peak gradient of 86 mmHg, and a mean gradient of 48 mmHg, and mild aortic regurgitation. The above was suggestive of critical aortic stenosis. 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 His echocardiogram as you know had also determined mitral regurgitation. He underwent axillary cannulation with a 10 mm Dacron side graft, redo median sternotomy, aortic valve replacement and root replacement with a 27 mm Enoc Abel valve, a 30 mm Gelweave Valsalva valve, reimplantation of the coronary arteries, mitral valve repair with a 29 mm Sadie band, and chelsy-arch replacement with a 30 mm Gelweave graft. Postoperatively he did well with an episode of atrial fibrillation and junctional rhythm and some kidney injury. He appeared to be doing well until June of this year when he presented to the hospital with headache and a supratherapeutic INR of 7.5. 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 He was transferred to the [facility] and was managed conservatively with INR reversal and the hematoma was noted to be stable on repeat CT. Cardiology was consulted and made the decision to continue holding aspirin and Coumadin. He was subsequently discharged in mid June. At the time of his discharge it appears that his EKG showed atrial flutter and there was a question about the need for Eliquis and or a ROCCO cardioversion. He was supposed to be cleared by neurology but he has not seen neurology yet. He tells me his neurology appt is in February 26. Pt sts that he is not aware of his irregular rhythm now. He has not had any chest pain since he was last in to see us. He does not have any worsening SOB. He is able to do his chores at home without any issues. He does occasionally have dizziness. He does not have any edema. 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 Is patient in pain?: No Allergies Penicillins Allergy (Intermediate, Verified 03/20/20 09:49) rash sulfamethoxazole [From Bactrim] Allergy (Intermediate, Verified 03/20/20 09:49) rash trimethoprim [From Bactrim] Allergy (Intermediate, Verified 03/20/20 09:49) rash lidocaine Allergy (Unknown, Verified 03/20/20 09:49) unknown acetaminophen [From Percocet] Adverse Reaction (Intermediate, Verified 03/20/20 09:49) GI upset oxycodone [From Percocet] Adverse Reaction (Intermediate, Verified 03/20/20 09:49) GI upset egg Adverse Reaction (Verified 03/20/20 09:49) Ears plug up, can't hear Medications multivitamin 1 tab PO DAILY 04/21/18 [History Confirmed 03/20/20] nitroglycerin 0.4 mg sublingual tablet 0.4 mg SUBLINGUAL Q5-15M PRN #25 tab 06/20/18 [Rx Confirmed 03/20/20] clindamycin HCl 300 mg capsule 300 mg PO .COMPLEX #2 cap 10/19/19 [Rx Confirmed 03/20/20] atorvastatin 10 mg tablet 10 mg PO QDAY #90 tab 10/26/19 [Rx Confirmed 03/20/20] amlodipine 10 mg tablet 10 mg PO DAILY #90 tab 12/13/19 [Rx Confirmed 03/20/20] metoprolol tartrate 50 mg tablet 50 mg PO BID #180 tab 01/25/20 [Rx Confirmed 03/20/20] apixaban 5 mg tablet 5 mg PO BID #60 tab 03/20/20 [Rx Confirmed 03/20/20] [facility] Medical History Subdural hematoma (Resolved 06/2019) Atrial fibrillation and flutter (Chronic 11/2019) Atherosclerotic heart disease of [place] coronary artery without angina pectoris (Chronic 07/17/05) Anomalous coronary artery origin (Chronic) Nonrheumatic aortic (valve) stenosis with insufficiency (Chronic) Nonrheumatic mitral (valve) insufficiency (Chronic) Prosthetic aortic valve stenosis (Chronic) Aortic root aneurysm (Resolved) Chronic diastolic (congestive) heart failure (Chronic) Right bundle branch block (RBBB) (Chronic) Essential (primary) hypertension (Chronic) Hyperlipidemia (Chronic) Dissecting aortic arch aneurysm (Resolved) Hx of renal calculi (Resolved) Junctional rhythm (Resolved) Postoperative atrial fibrillation (Resolved 05/11/19) Surgical History H/O coronary artery bypass surgery (Resolved 07/17/05) History of aortic valve replacement with bioprosthetic valve (Chronic 05/11/19) History of mitral valve repair (Resolved 05/11/19) History of aortic root repair (Resolved 05/11/19) History of ear surgery (Resolved) History of left heart catheterization (Resolved 10/25/18) Hx of cholecystectomy (Resolved) Hx of fracture of ankle (Resolved) Hx of vasectomy (Resolved) Family History Mother , age 82 lung problems No problems noted. Father , age 40 ruptured appendix No problems noted. Social History (Updated 03/20/20 @ 15:14 by Rohini BOND PA) Smoking Status: Former smoker alcohol intake: never caffeine: Yes Type: coffee Number of servings: 2 ROS Const Const: Negative for fatigue, weakness, headache(s), frequent falls, difficulty sleeping or excessive sweating Eyes Eyes: Negative for loss of peripheral vision, transient loss of vision, blurry vision, double vision or tunnel vision ENT ENT: Negative for headache(s), dizziness, Nosebleed/epistaxis or balance problems Cardio Chest Pain: No Palpitations: No Edema: None Muscle aches with walking: None Resp Respiratory: Negative for SOB with activity, SOB at rest, SOB orthopnea\SOB lying down, Cough or paroxysmal nocturnal dyspnea GI GI: Negative nausea, vomiting, heartburn or black,tarry stools : Negative for hematuria Musc Musc: Negative for muscle aches/ myalgia, muscle weakness, joint pain or balance problems Skin Skin: Negative non-healing lesions, rash or unusual bruising Neuro Neuro: Negative for dizziness, lightheadedness, near syncope, syncope, orthostatic symptoms, frequent falls, headache(s), weakness, blurry vision, double vision or lack of coordination Adi Hematologic/Lymphatic: Positive for easy bleeding and other (c/o bleeding easily Petechiae BLE); negative for easy bruising Endo Endo: Negative for fatigue, excessive sweating or increased thirst/drinking Psych Psych: Negative for anxiety or depression Allergy Allergy/Immunology: Negative for hives, Negative for rash Cardiology Exam Const Appearance: cooperative, healthy appearing, no acute distress, well developed and well groomed Nutritional Appearance: average body habitus and well nourished Orientation: alert, awake and oriented x3 Head Head: normal to inspection, normocephalic and atraumatic Ears: hearing grossly normal bilaterally and external ears normal Nose: external nose normal, nares normal, nasal mucous membranes and turbinates normal, septum normal, no nasal discharge Face and Sinus: face symmetric Mouth: oral mucosae normal, tongue normal, oropharynx normal and moist mucous membranes Teeth and gingiva: dentition normal Throat: posterior oropharynx normal, tonsils normal and uvula midline Eyes General: appearance normal, both eyes and all related structures Eyelids: eyelids normal Conjunctivae: conjunctivae normal Pupils: PERRL, normal by confrontation and accommodation normal EOM: EOM intact bilaterally Neck Neck: normal visual inspection, trachea midline and no JVD JVD: +5 Carotids: normal carotid upstroke and bounding pulses Chest Chest inspection: normal inspection of the chest, symmetric chest movement and normal respiratory effort Auscultation: Bilateral: Clear to Auscultation Cardio Palpation: normal PMI Rate: regular rate Rhythm: irregular rhythm Heart sounds: S1 normal, S2 normal and normal, physiologic split S2; negative rub, gallop or murmur GI GI: normal to inspection, soft, no hepatosplenomegaly and bowel sounds present Neuro General: alert, awake, oriented x3, gait normal, moves all extremities and no focal sensory deficit Skin Skin: no rashes or lesions noted Extremities Pulses: Normal: Right Femoral Pulse, Left Femoral Pulse, Right Dorsalis Pedis Pulse, Left Dorsalis Pedis Pulse, Right Posterior Tibial Pulse, Left Posterior Tibial Pulse, Right Radial Pulse, Left Radial Pulse Lower Extremity Edema: None: Bilateral Musculoskel Musculoskeletal: No joint tenderness Psych Psychological: normal affect Assessment & Plan 1. Atrial fibrillation and flutter I48.91; I48.92 Plan Patient was seen by both neurology and hematology. It was okay for patient to start an anticoagulant with the idea that we would pursue a cardioversion. After he had maintained sinus rhythm would discontinue his anticoagulation at the appropriate time. This was discussed with patient. He is agreeable to proceed with anticoagulation. He does not want to start Coumadin but is agreeable to start Eliquis. We will schedule him for a cardioversion in 3 to 4 weeks. Patient Instructions I will call you with the date and time of your procedure Nothing to eat or drink after midnight day before your procedure You will need a concrete pile driver operator take all of your morning medications with a sip of water day of procedure Orders Orders: 12 Lead EKG performed by [facility] Today 2. Atherosclerosis of [place] coronary artery of [place] heart without angina pectoris I25.10 Plan Stable, from a cardiac standpoint patient does not have any symptoms of angina. We recommend that they continue with current aggressive medical management and risk factor modification. 3. History of aortic root repair Z98.890 Plan Stable, will continue to monitor. 4. History of mitral valve repair Z98.890 MVR with a 29 mm Galvin band 05/11/19 Plan Stable, he will continue to be monitored with echocardiograms as deemed appropriate. He will continue with antibiotic prophylaxis 5. History of aortic valve replacement with bioprosthetic valve Z95.3 CABG x 1 ESTRELLA-LAD and AVR w/ [address] Indra Valve 07/17/2005; Re-Do Sternotomy AVR w/ 27 mm CE valve and hemiarch replacement w/ 30 mm Gelweave Valsava graft 05/11/2019 Plan Stable, patient will continue to be monitored with echocardiograms as deemed appropriate. He will continue with antibiotic prophylaxis. 6. Essential hypertension I10 Plan Blood pressure is well controlled on current medications, we do not recommend any changes at this time. 7. Pure hypercholesterolemia E78.00 Plan This will continue to be monitored. He is on low-dose statin. Plan Detail Other Medications New: apixaban (Eliquis) 5 mg PO BID 60 tabs 3RF Follow Up 2 Months (PUFFER TENDER/MMM) Coding Level of Care Code Off vis,est,level 4 Diagnoses Atrial fibrillation and flutter I48.91; I48.92 Atherosclerosis of [place] coronary artery of [place] heart without angina pectoris I25.10 ??[place] vs. transplanted heart: [place] heart History of aortic root repair Z98.890 History of mitral valve repair Z98.890 History of aortic valve replacement with bioprosthetic valve Z95.3 Essential hypertension I10 Pure hypercholesterolemia E78.00 ??Hyperlipidemia type: pure hypercholesterolemia Coding Level of Care Code Off vis,est,level 4 Diagnoses Atrial fibrillation and flutter I48.91; I48.92 Atherosclerosis of [place] coronary artery of [place] heart without angina pectoris I25.10 ??[place] vs. transplanted heart: [place] heart History of aortic root repair Z98.890 History of mitral valve repair Z98.890 History of aortic valve replacement with bioprosthetic valve Z95.3 Essential hypertension I10 Pure hypercholesterolemia E78.00 ??Hyperlipidemia type: pure hypercholesterolemia Supplemental Info Supplemental Information Labs LDL Cholesterol 37 mg/dL (0-130) 10/26/19 HDL Cholesterol 43 mg/dL (40-) 10/26/19 Triglycerides 83 mg/dL (-199) 10/26/19 VLDL Cholesterol 17 mg/dL (5-40) 10/26/19 Diagnostics Electrocardiogram 03/20/20
[2020-04-16 10:23] LABS: Anion Gap 2 (5-15); BUN 21 mg/dL (7-18); BUN/Creat Ratio 14.6 RATIO (10-20); Calcium,Total 8.7 mg/dL (8.5-10.1); Chloride 109 mmol/L (98-107); Creatinine, Serum 1.44 mg/dL (0.70-1.30); EST Glomerular Filtration Rate 50 mL/min (>60); Est Glom Filt Rate - Afr Amer 61 mL/min (>60); Estimated Creatinine Clearance 43.58 ml/min; Glucose 101 mg/dL (74-106); Potassium 4.2 mmol/L (3.5-5.1); Sodium Level 140 mmol/L (136-145)
== END 2020-04-16 13:00 | disposition home or self-care (01) ==
LOC: CLSP 09:58
PROVIDERS: PCP Family Medicine; Referring Provider Internal Medicine Cardiovascular Disease; Visit Provider Internal Medicine Cardiovascular Disease
DX: I25.10 Atherosclerotic heart disease of native coronary artery without angina pectoris (principal); Z53.8 Procedure and treatment not carried out for other reasons; Z95.1 Presence of aortocoronary bypass graft; I48.91 Unspecified atrial fibrillation; Z79.899 Other long term (current) drug therapy; Z79.01 Long term (current) use of anticoagulants; I48.92 Unspecified atrial flutter; R00.1 Bradycardia, unspecified; R42 Dizziness and giddiness
CPT/HCPCS: 36415; 80048; 93005; 93225; 93226; J7040

== ENCOUNTER 2020-05-09 11:27 | Observation (INO) | payer MEDICARE, BC, SELFPAY ==
[2020-04-12 09:32] VITALS: BMI 27.6
[2020-05-06 08:48] VITALS: BMI 27.6
--- NOTE | 2020-05-06 09:56 | RAD_ITS ---
STUDY: X-RAY CHEST REASON FOR EXAM: Male, 80 years old. FOR PLACEMENT, MICRA VR PPM ON 05/09 TECHNIQUE: PA and lateral views of the chest. COMPARISON: 10/21/2018. FINDINGS: The lungs are clear and expanded. There is no demonstrated pleural abnormality. Midline sternotomy wires with evidence of valvular replacement surgery. Normal mediastinum and cornelius. Normal visualized pulmonary arteries. There is atherosclerotic calcification of the aortic arch with tortuosity. Scoliosis of thoracic spine, convexity to the right. There is degenerative osteoarthritis of the bilateral shoulders. There is no demonstrated abnormality of the visualized soft tissue structures of the upper abdomen. RAD/Chest PA and Lateral IMPRESSION: No acute cardiopulmonary disease. Electronically Signed: Jennifer Nathan MD at 0:24 EST , Service support ,
[2020-05-06 10:54] LABS: Color, Urine Yellow (Yellow); Glucose, Dipstick Normal (Normal); Ketone-Dipstick 5 mg/dl (Negative); Leukocyte Esterase-Dipstick 25 /ul (Negative); Nitrite-Dipstick Negative (Negative); Occult Blood-Urine 150 /ul (Negative); Protein-Dipstick 15 mg/dl (Negative); Specific Gravity, Urine 1.025 (1.002-1.030); Urine Bilirubin Dipstick Negative (Negative); Urine Clarity Sl. Cloudy (Clear); Urine Urobilinogen 1 mg/dl (Normal)
[2020-05-06 10:55] LABS: Hemoglobin 14.4 g/dL (13.0-16.5); Mean Corp Hgb Conc 33.5 g/dL (32-36); Mean Corpuscular Volume 98.4 fL (80-94); Platelet Count 139 K/mm3 (150-450); RBC Distribution Width CV 12.8 % (11.6-14.6); Red Blood Count 4.37 M/mm3 (4.6-6.2)
[2020-05-06 11:00] LABS: Bacteria 1+ /hpf (None Seen); Mucous, Urine 2+ /hpf (<or=2+); Red Blood Cells-Urine 10-25 SEEN /hpf (0-5); Squamous Epithelial Cells - UA 0-5 SEEN /hpf (0-5); White Blood Cells 0-5 SEEN /hpf (0-5)
[2020-05-06 11:01] LABS: International Normalized Ratio 1.1; Prothrombin Time (Protime)PT. 14.1 SECONDS (11.7-14.9)
[2020-05-06 11:16] LABS: Anion Gap 5 (5-15); BUN 14 mg/dL (7-18); BUN/Creat Ratio 10.4 RATIO (10-20); Chloride 108 mmol/L (98-107); Creatinine, Serum 1.35 mg/dL (0.70-1.30); EST Glomerular Filtration Rate 54 mL/min (>60); Est Glom Filt Rate - Afr Amer 65 mL/min (>60); Glucose 106 mg/dL (74-106); Potassium 4.5 mmol/L (3.5-5.1); Sodium Level 141 mmol/L (136-145)
[2020-05-08 10:07] VITALS: BMI 27.6
[2020-05-09] VITALS (16 sets, daily range): BP systolic 90–132; BP diastolic 62–71; PULSE 48–63; RESP 12–18; TEMP 36.3–36.7; O2SAT 94–98; BMI 27.9; BMI 28.0
--- NOTE | 2020-05-09 06:00 | HP_ITS ---
HPI HPI History of Present Illness Surgical H&P: Yes Details: This is a 79-year-old gentleman that presents here today for an update HPI for an upcoming MICRA PPM He has a history of coronary artery disease with bypass surgery with an ESTRELLA to the LAD with an aortic valve replacement in June 2005. He then underwent a redo aortic valve replacement with a bioprosthetic valve, aortic root repair with mitral valve repair in April 2019. He has a history of coronary artery disease with history of bypass surgery. He had an ESTRELLA to the LAD. He also has a history of aortic valve disease with a Saint Indra bioprosthetic aortic valve. 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 Echocardiogram at that time demonstrated moderate concentric left ventricular hypertrophy, estimated ejection fraction of 60%, 1-2+ mitral regurgitation, 1+ tricuspid regurgitation, and an aortic valve with a peak gradient of 86 mmHg, and a mean gradient of 48 mmHg, and mild aortic regurgitation. The above was suggestive of critical aortic stenosis. 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 His echocardiogram as you know had also determined mitral regurgitation. He underwent axillary cannulation with a 10 mm Dacron side graft, redo median sternotomy, aortic valve replacement and root replacement with a 27 mm Enoc Abel valve, a 30 mm Gelweave Valsalva valve, reimplantation of the coronary arteries, mitral valve repair with a 29 mm Sadie band, and chelsy-arch replacement with a 30 mm Gelweave graft. Postoperatively he did well with an episode of atrial fibrillation and junctional rhythm and some kidney injury. He appeared to be doing well until June of this year when he presented to the hospital with headache and a supratherapeutic INR of 7.5. 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 He was transferred to the [facility] and was managed conservatively with INR reversal and the hematoma was noted to be stable on repeat CT. Cardiology was consulted and made the decision to continue holding aspirin and Coumadin. He was subsequently discharged in mid June. At the time of his discharge it appears that his EKG showed atrial flutter and there was a question about the need for Eliquis and or a ROCCO cardioversion. He was supposed to be cleared by neurology but he has not seen neurology yet. He tells me his neurology appt is in February 26. Pt sts that he is not aware of his irregular rhythm now. He has not had any chest pain since he was last in to see us. He does not have any worsening SOB. He is able to do his chores at home without any issues. He does occasionally have dizziness. He does not have any edema. Was scheduled for cardioversion however HR was low- HM done -micra He is fatigued. He does not have any chest pain. He sometimes feel that his breathing is heavier. He does not have any palpitations. He does not have any lightheadedness/dizziness. He does not have any edema. Pt stopped taking his eliquis yesterday. He is concerned with cost if he needs to continue with this. Intake Vital Signs 05/06/20 Height 5 ft 11 in 05/06/20 Weight: 198 lb 05/06/20 BMI 27.6 05/06/20 BP 132/77 H 05/06/20 Blood Pressure Location Lt brachial 05/06/20 Position Sitting 05/06/20 Respiration 18 05/06/20 Pulse 53 L 05/06/20 Pulse Source Monitor 05/06/20 Pulse Oximetry (%) 97 Intake Visit Reasons: MICRA H&P / ALVAREZ 9:30 Parts Specialist Required: No Is patient in pain?: No Allergies Penicillins Allergy (Intermediate, Verified 05/06/20 08:43) rash sulfamethoxazole [From Bactrim] Allergy (Intermediate, Verified 05/06/20 08:43) rash trimethoprim [From Bactrim] Allergy (Intermediate, Verified 05/06/20 08:43) rash lidocaine Allergy (Unknown, Verified 05/06/20 08:43) unknown acetaminophen [From Percocet] Adverse Reaction (Intermediate, Verified 05/06/20 08:43) GI upset oxycodone [From Percocet] Adverse Reaction (Intermediate, Verified 05/06/20 08:43) GI upset egg Adverse Reaction (Verified 05/06/20 08:43) Ears plug up, can't hear Medications multivitamin 1 tab PO DAILY 04/21/18 [History Confirmed 05/06/20] nitroglycerin 0.4 mg sublingual tablet 0.4 mg SUBLINGUAL Q5-15M PRN #25 tab 06/20/18 [Rx Confirmed 05/06/20] atorvastatin 10 mg tablet 10 mg PO QDAY #90 tab 10/26/19 [Rx Confirmed 05/06/20] amlodipine 10 mg tablet 10 mg PO DAILY #90 tab 12/13/19 [Rx Confirmed 05/06/20] apixaban 5 mg tablet 5 mg PO BID #60 tab 03/20/20 [Rx Confirmed 05/06/20] Clindamycin HCl 300 mg PO X1 04/12/20 [History Confirmed 05/06/20] metoprolol tartrate 50 mg tablet 25 mg PO BID tab 05/06/20 [History] ciprofloxacin HCl 500 mg tablet 500 mg PO BID #6 tab 05/07/20 [Rx] [facility] Medical History (Updated 04/26/20 @ 16:57 by Olimpia Okeefe) Sick sinus syndrome (Chronic) Subdural hematoma (Resolved 06/2019) Atrial fibrillation and flutter (Chronic 11/2019) Atherosclerotic heart disease of [place] coronary artery without angina pectoris (Chronic 07/17/05) Anomalous coronary artery origin (Chronic) Nonrheumatic aortic (valve) stenosis with insufficiency (Chronic) Nonrheumatic mitral (valve) insufficiency (Chronic) Prosthetic aortic valve stenosis (Chronic) Aortic root aneurysm (Resolved) Chronic diastolic (congestive) heart failure (Chronic) Right bundle branch block (RBBB) (Chronic) Essential (primary) hypertension (Chronic) Hyperlipidemia (Chronic) Dissecting aortic arch aneurysm (Resolved) Hx of renal calculi (Resolved) Junctional rhythm (Resolved) Postoperative atrial fibrillation (Resolved 05/11/19) Surgical History H/O coronary artery bypass surgery (Resolved 07/17/05) History of aortic valve replacement with bioprosthetic valve (Chronic 05/11/19) History of mitral valve repair (Resolved 05/11/19) History of aortic root repair (Resolved 05/11/19) History of ear surgery (Resolved) History of left heart catheterization (Resolved 10/25/18) Hx of cholecystectomy (Resolved) Hx of fracture of ankle (Resolved) Hx of vasectomy (Resolved) Family History Mother , age 82 lung problems No problems noted. Father , age 40 ruptured appendix No problems noted. Social History (Updated 04/11/20 @ 18:[address] Carroll Padgett MD) Smoking Status: Former smoker alcohol intake: never caffeine: Yes Type: coffee Number of servings: 2 Assessment & Plan 1. Sick sinus syndrome I49.5 Orders Orders: 12 [place] [facility] [place] 2. Atherosclerosis of [place] coronary artery of [place] heart without angina pectoris I25.10 3. Atrial fibrillation and flutter I48.91; I48.92 Orders Orders: 12 [place] [facility] [place] 4. Subdural hematoma S06.5X9A 5. History of aortic valve replacement with bioprosthetic valve Z95.3 CABG x 1 ESTRELLA-LAD and AVR w/ [address] Indra Valve 07/17/2005; Re-Do Sternotomy AVR w/ 27 mm CE valve and hemiarch replacement w/ 30 mm Gelweave Valsava graft 05/11/2019 6. History of mitral valve repair Z98.890 MVR with a 29 mm Galvin band 05/11/19 7. History of aortic root repair Z98.890 8. Prosthetic aortic valve stenosis T82.857A 9. 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 Chronic diastolic (congestive) heart failure I50.32 Plan Detail Follow Up 05/06/20 (keep as is) Coding Diagnoses Sick sinus syndrome I49.5 Atherosclerosis of [place] coronary artery of [place] heart without angina pectoris I25.10 ??[place] vs. transplanted heart: [place] heart Atrial fibrillation and flutter I48.91; I48.92 Subdural hematoma S06.5X9A History of aortic valve replacement with bioprosthetic valve Z95.3 History of mitral valve repair Z98.890 History of aortic root repair Z98.890 Prosthetic aortic valve stenosis T82.857A Aortic root aneurysm I71.9 Chronic diastolic (congestive) heart failure I50.32 Coding Diagnoses Sick sinus syndrome I49.5 Atherosclerosis of [place] coronary artery of [place] heart without angina pectoris I25.10 ??[place] vs. transplanted heart: [place] heart Atrial fibrillation and flutter I48.91; I48.92 Subdural hematoma S06.5X9A History of aortic valve replacement with bioprosthetic valve Z95.3 History of mitral valve repair Z98.890 History of aortic root repair Z98.890 Prosthetic aortic valve stenosis T82.857A Aortic root aneurysm I71.9 Chronic diastolic (congestive) heart failure I50.32 Supplemental Info Supplemental Information Diagnostics Electrocardiogram 05/06/20 Pacemaker Check 05/06/20 Chest X-Ray 05/06/20
--- NOTE | 2020-05-09 11:05 | PRO.PCM_ITS ---
Procedure Report Date of Procedure: 05/09/20 Diagnosis: Patient with symptomatic bradycardia: [Atrial flutter with slow ventricular response rate]. Planned procedure - insertion of VVI leadless pacemaker via right femoral vein (transcatheter pacing system) After informed consent and procedural antibiotics, the patient was brought to the [facility] catheterization laboratory and the right and left groins were prepped and draped in a sterile manner. Intermittent bolus of versed and fentanyl and 1% subcutaneous lidocaine were used for sedation and analgesia. Femoral vein access was achieved with Seldinger technique and confirmed by positioning of the guide wire into the superior vena cava under fluoroscopic guidance. Over the wire, the Emily dilator was used to dilate the femoral vein access up to 20Fr. The Emily dilator was removed. After thorough flushing of the sheath with heparinized saline, the 23Fr delivery sheath was inserted and advanced over the wire under fluoroscopic guidance to the floor of the right atrium. A bolus of intravenous heparin was administered. The delivery catheter and leadless pacemaker were then brought to the field and was flushed thoroughly with heparinized saline used to express all air distally. Saline flush also was used to flush the suture at the proximal end of the delivery sheath handle. Through the delivery sheath, the delivery catheter and leadless pacemaker were advanced through the sheath to the floor of the right atrium, under fluoroscopic guidance. The delivery catheter and pacemaker were advanced beyond the delivery sheath and with appropriate deflection and manipulation, the delivery catheter and pacemaker were advanced under fluoroscopic guidance (PENNY projection) across the tricuspid valve and into the right ventricle. In the ISABELLA projection, the delivery sheath was positioned in firm apposition with the right ventricular septal wall. Contrast injection confirmed firm contact with the right ventricular wall along the septum and excluded an apical position. The delivery sheath was then flushed with heparinized saline. The leadless pacemaker was then deployed and the delivery sheath was pulled back to an adequate position to complete the tug test. Under a magnified view with cine imaging, the tug test was completed and confirmed no less than 2 of the 4 tines were in excellent contact with the myocardium and there was no dislodgement of the pacemaker. Testing was performed of the device and acceptable sensing, impedance and capture were confirmed. The testing of the pacemaker was repeated multiple times and confirmed to be adequate and stable. The delivery sheath was flushed again with heparinized saline. One end of the suture was then cut and the suture was slowly withdrawn from the delivery sheath. Once the suture was removed, the pacemaker was tested again and confirmed appropriate and stable electrical parameters. There was no change in position of the device after suture was removed. The delivery catheter and sheath were then removed from the right femoral vein. Hemostasis was obtained with surgical purse string closure with use of 3 way stopcock and manual pressure. Patient left the room in stable condition with the pacemaker programmed to appropriate parameters. There were no complications. R waves were noted to measure 8.2 mV with a pacing impedance of 840 ohms and a pacing threshold of 0.5 V at 0.24 ms. Device product information, electrical data and serial number are provided in the chart.
--- NOTE | 2020-05-09 20:31 | PCS.PANDOC ---
PANDEMIC DOCUMENTATION INITIATED: Date: 05/09/2020 Time: 1900
[2020-05-09] MEDS: Metoprolol Tartrate 25 MG Tablet PO (21:25)
[2020-05-09] MEDS: Atorvastatin Calcium 10 MG Tablet PO (21:25)
[2020-05-10 03:00] VITALS: PULSE 95
[2020-05-10 03:20] VITALS: BP 117/69; PULSE 54; RESP 16; TEMP 36.6; O2SAT 96
[2020-05-10 07:00] VITALS: PULSE 63
--- NOTE | 2020-05-10 07:52 | PCM.PN.CARD ---
Subjectve: pt seen an evaluated Objective: Vital Signs Temp Pulse Resp BP Pulse Ox 97.9 F 63 16 117/69 96 05/10/20 03:20 05/10/20 07:00 05/10/20 03:20 05/10/20 03:20 05/10/20 03:20 Oxygen Delivery Method Room Air Weight: 199 lb 11.821 oz Body Mass Index (BMI) 27.9 Intake and Output for Last 24 Hours 05/08/20 05/09/20 05/10/20 23:59 23:59 23:59 Intake Total 340 / 340 100 / 100 Output Total 1100 / 1100 500 / 500 Balance -760 / -760 -400 / -400 General: Awake, Alert, Oriented x 3 HEENT: PERRL, EOMI, Sclera Non Icteric Neck: Supple, Good ROM, No Lymph Node Enlargement Lungs: Clear to auscultation Cardiovascular: Regular Rhythm, Normal S1, Normal S2, No Murmurs, No Rubs, No Gallops Rhythm: EKG: ECHO: Stress Test: Cardiac Cath: PCI: CT Surgery: Holter monitor: EPS: PPM: CXR: Chest CT Scan: Medical Necessity - Tobacco Use Smoking Status: Former smoker Assessment/Plan 1. S/p micra pacer wound check normal. Pacer check normal. Home.
--- NOTE | 2020-05-10 07:53 | DCINST_ITS ---
Discharge Diet: No Restrictions Discharge Activity: Return to Normal Activity - as you feel able. No excessive stretching. No lifting your arm over your head (keep elbow below shoulder level) until seen for your pacemaker check. Do not lift your elbow away from your side until you are seen for your first visit. Keep the arm sling on if it helps remind you not to lift your arm. Additional Activity Instructions:: May shower or bathe on []. Do not scrub the incision or soak in the tub. Just wash with soap and let the water run over the incision. Gently pat dry with towel. Medications: Take your pain medication as directed. Refer to your discharge instruction sheet for a list of medications you are to take. Call your doctor if your incision/area has: Continuous Slow Oozing, Sudden Increased Bleeding, Increased Pain/ Swelling, Increased Redness, Foul Smelling Discharge, Swelling at the incision site Call your doctor if you observe: Fever of 101 or Higher, Shortness of breath, Dizziness, Fainting spells, Swelling in the ankles, Chest pain, Prolonged hiccoughing, Increased palpitations (irregular heartbeat) Additional Dressing/Incision Instructions:: When dressing is removed, wash and dry incision. Keep covered with a light bandage if it is rubbing against your clothing. Do not cover the incision with an airtight bandage. Change the bandage daily. Do not remove steri strips. The strips will fall off on their own. Additional Instructions: Signs and Symptoms to Report to Your Doctor at Once - call your doctor's office or Doctor's Registry ([phone]) Call 911 or go to the nearest Emergency Department if you feel you need urgent care. *Infection (fever, increased redness or swelling at the incision site, drainage from the incision increased pain at the pacemaker site) *Shortness of breath *Dizziness *Fainting spells *Swelling in the ankles *Chest pain *Prolonged hiccoughing *Increased palpitaitons (irregular heartbeat) Medications: Take your pain medication as directed. Refer to your discharge instruction sheet for a list of medications you are to take. Allergies/Adverse Reactions: Allergies Penicillins Allergy (Intermediate, Verified 05/06/20 08:43) rash sulfamethoxazole [From Bactrim] Allergy (Intermediate, Verified 05/06/20 08:43) rash trimethoprim [From Bactrim] Allergy (Intermediate, Verified 05/06/20 08:43) rash lidocaine Allergy (Unknown, Verified 05/06/20 08:43) unknown acetaminophen [From Percocet] Adverse Reaction (Intermediate, Verified 05/06/20 08:43) GI upset oxycodone [From Percocet] Adverse Reaction (Intermediate, Verified 05/06/20 08:43) GI upset egg Adverse Reaction (Verified 05/06/20 08:43) Ears plug up, can't hear Medications to take at Discharge multivitamin 1 tab PO DAILY 04/21/18 nitroglycerin 0.4 mg sublingual tablet 0.4 mg SUBLINGUAL Q5-15M PRN #25 tab 06/20/18 atorvastatin 10 mg tablet 10 mg PO QDAY #90 tab 10/26/19 amlodipine 10 mg tablet 10 mg PO DAILY #90 tab 12/13/19 apixaban 5 mg tablet 5 mg PO BID #60 tab 03/20/20 Clindamycin HCl 300 mg PO X1 04/12/20 metoprolol tartrate 50 mg tablet 25 mg PO BID tab 05/06/20 Primary Care Physician: Niles Brunson MD [Primary Care Provider] - Test Results: Test results from this visit will be discussed in further detail at your follow- up appointment, if applicable. When: PACER APPT AT 3 PM Proposed Discharge Date: 05/10/20
[2020-05-10 08:56] VITALS: BP 126/70; PULSE 62; RESP 18; TEMP 36.7; O2SAT 96
[2020-05-10] MEDS: amLODIPine 10 MG Tablet PO (08:57)
[2020-05-10 08:58] VITALS: BP 126/70; PULSE 62
[2020-05-10] MEDS: Metoprolol Tartrate 25 MG Tablet PO (08:58)
== END 2020-05-10 07:55 | disposition home or self-care (01) ==
LOC: CLSP 11:32 → PCU 11:32
PROVIDERS: Admitting Provider Internal Medicine Cardiovascular Disease; PCP Family Medicine; Referring Provider Internal Medicine Cardiovascular Disease; Visit Provider Internal Medicine Cardiovascular Disease
DX: I49.5 Sick sinus syndrome (principal); I48.92 Unspecified atrial flutter; I25.10 Atherosclerotic heart disease of native coronary artery without angina pectoris; E78.5 Hyperlipidemia, unspecified; I50.32 Chronic diastolic (congestive) heart failure; Z79.899 Other long term (current) drug therapy; Z79.01 Long term (current) use of anticoagulants; Z95.1 Presence of aortocoronary bypass graft; Z95.3 Presence of xenogenic heart valve; Z87.891 Personal history of nicotine dependence
CPT/HCPCS: 33274; 36415; 71046; 80048; 81001; 85027; 85610; 99152; 99153; 99218; C1894; J7040; Q9967; C1769; G0378; G0379

== ENCOUNTER → 2020-12-23 14:45 | Outpatient (CLI) | payer MEDICARE, BC, SELFPAY ==
[2020-12-23 16:22] LABS: Absolute Lymphocyte Count 1.58 X10^3/uL (0.83-4.51); Absolute Neutrophil Count 6.6 X10^3/uL (2.0-7.7); Basophil# 0.07 X10^3/uL; Basophil% 0.7 % (0-1); Eosinophils% 3.2 % (0-5); Hematocrit 45.2 % (40-54); Hemoglobin 15.3 g/dL (13.0-16.5); Lymphocyte # 1.58 X10^3/ul (0.83-4.51); Lymphocyte % 16.6 % (19-41); Mean Corp Hgb Conc 33.8 g/dL (32-36); Mean Corpuscular Hgb 32.8 pg (27.0-32.0); Mean Platelet Vol. 10.7 fl (6.2-12.0); Monocyte# 0.93 X10^3/uL; Monocyte% 9.8 % (0-10); NRBC Flagged by Analyzer 0 % (0-5); Neutrophil # 6.59 X10^3/uL (2.7-7.7); Neutrophil % 69.2 % (47-70); Platelet Count 140 K/mm3 (150-450); RBC Distribution Width SD 46.5 fl (35.1-43.9); Red Blood Count 4.66 M/mm3 (4.6-6.2); White Blood Count 9.5 K/mm3 (4.4-11.0)
[2020-12-23 17:02] LABS: Anion Gap 10 (5-15); BUN 21 mg/dL (7-18); Calcium,Total 9.2 mg/dL (8.5-10.1); Chloride 106 mmol/L (98-107); EST Glomerular Filtration Rate 48 mL/min (>60); Est Glom Filt Rate - Afr Amer 58 mL/min (>60); Glucose 102 mg/dL (74-106); Potassium 4.3 mmol/L (3.5-5.1); Sodium Level 142 mmol/L (136-145); Thyroid Stim Hormone (TSH) 3.07 uIU/mL (0.358-3.74)
== END ==
PROVIDERS: PCP Family Medicine; Visit Provider Physician Assistant Medical
DX: I48.19 Other persistent atrial fibrillation (principal); I50.42 Chronic combined systolic (congestive) and diastolic (congestive) heart failure; E78.00 Pure hypercholesterolemia, unspecified; Z95.0 Presence of cardiac pacemaker; Z95.1 Presence of aortocoronary bypass graft; Z98.890 Other specified postprocedural states; Z95.3 Presence of xenogenic heart valve
CPT/HCPCS: 36415; 80048; 84443; 85025

== ENCOUNTER → 2020-12-25 10:51 | Outpatient (CLI) | payer MEDICARE, BC, SELFPAY ==
--- NOTE | 2020-12-25 10:53 | ECHOCS_ITS ---
Reason For Study: DYSPNEA/SOB Procedure This was a 2D Doppler, Color Flow transthoracic echocardiogram. The study was technically difficult. Contrast injection was performed. Exam performed in department. Left Ventricle Normal LV size. Left ventricular systolic function is normal. The estimated ejection fraction is 53 %. Stage 3 diastolic dysfunction. Infero-Basal: Hypokinetic. Mid-inferoseptal : Akinetic. There are regional wall motion abnormalities as specified. Right Ventricle Moderately dilated right ventricle. Mild to moderate global right ventricular systolic dysfunction. Atria The left atrium is moderately enlarged. The right atrium is mildly enlarged. Mitral Valve Normal mitral valve. Mild-Moderate (1-2+) eccentric mitral valve insufficiency. Tricuspid Valve Normal tricuspid valve. Mild (1+) tricuspid valve insufficiency. Pulmonary artery systolic pressure is 38 mmHg. Aortic Valve Bioprosthetic aortic valve. Pulmonic Valve Normal pulmonic valve. Great Vessels Normal aortic root. The pulmonary artery is normal size. Normal inferior vena cava. Pericardium/Pleural No pericardial effusion. Medication Diluted definity 2.0ml given slow IV push to enhance endocardial definition. MMode/2D Measurements & Calculations LVIDd: 5.5 cm IVSd: 1.1 cm LVOT diam: 2.4 cm LVIDs: 4.4 cm LVPWd: 1.1 cm RVDd: 4.2 cm FS: 20.9 % LVOT area: 4.4 cm2 LAV(MOD-bp): 87.2 ml LA A4 area: 27.4 cm2 LA dimension(2D): 5.9 cm LAV(MOD-bp) Indexed: 42.3 ml/m2 LAV(MOD-sp2): 66.0 ml LAV(MOD-sp4): 103.2 ml RA A4 area: 24.8 cm2 Doppler Measurements & Calculations MV E max kai: 165.5 cm/sec Ao V2 max: 190.2 cm/sec LV V1 max: 111.8 cm/sec MV A max kai: 66.7 cm/sec Ao max P.5 mmHg LV V1 max P.0 mmHg MV E/A: 2.5 Ao V2 mean: 135.0 cm/sec LV V1 mean P.1 mmHg Ao mean P.9 mmHg LV V1 mean: 84.4 cm/sec Ao V2 VTI: 37.1 cm LV V1 VTI: 24.6 cm IBETH(I,D): 2.9 cm2 IBETH(V,D): 2.6 cm2 SV(LVOT): 109.3 ml PA V2 max: 100.0 cm/sec TR max kai: 290.6 cm/sec TR max P.8 mmHg ECHO/Echo Complete W/ Contrast Interpretation Summary Normal LV size. Left ventricular systolic function is normal. The estimated ejection fraction is 53 %. Mild-Moderate (1-2+) eccentric mitral valve insufficiency. Stage 3 diastolic dysfunction. The left atrium is moderately enlarged. The right atrium is mildly enlarged. Ordering Physician: Silva^Rohini^M^^PA, PA Referring Physician: Niles Brunson Performed By: Mavis Zambrano, CHACORTA, RVT
== END ==
PROVIDERS: PCP Family Medicine; Visit Provider Physician Assistant Medical
DX: R06.00 Dyspnea, unspecified (principal); R06.02 Shortness of breath; Z98.890 Other specified postprocedural states
CPT/HCPCS: 93306; Q9957; A4216; C8929; J3490

== ENCOUNTER → 2021-12-23 | Outpatient (CLI) | payer MEDICARE, BC, SELFPAY ==
[2021-12-23 10:22] LABS: AST(SGOT) 22 U/L (15-37); Alanine Aminotransfer ALT/SGPT 26 U/L (16-61); Albumin, Serum 4.2 g/dL (3.2-5.0); Alkaline Phosphatase 93 U/L (45-117); Bilirubin, Direct 0.45 mg/dL (0.00-0.30); Cholesterol 114 mg/dL (200); Globulin 3.4 g/dL (2.2-4.2); High Density Lipoprotein 53 mg/dL; Protein, Total 7.6 g/dL (6.4-8.2); Triglycerides 57 mg/dL; Very Low Density Lipoprotein 11 mg/dL (5-40)
== END | disposition home or self-care (01) ==
LOC: LAB 09:30
PROVIDERS: Referring Provider Internal Medicine Cardiovascular Disease; Visit Provider Internal Medicine Cardiovascular Disease
DX: E78.00 Pure hypercholesterolemia, unspecified (principal)
CPT/HCPCS: 36415; 80061; 80076

== ENCOUNTER → 2022-06-23 | Outpatient (CLI) | payer MEDICARE, BC, SELFPAY ==
[2022-06-23 11:08] LABS: Absolute Lymphocyte Count 1.26 X10^3/uL (0.83-4.51); Absolute Neutrophil Count 4.6 X10^3/uL (2.0-7.7); Basophil# 0.07 X10^3/uL; Eosinophils% 4.1 % (0-5); Hematocrit 46.5 % (40-54); Hemoglobin 15.8 g/dL (13.0-16.5); Lymphocyte # 1.26 X10^3/ul (0.83-4.51); Lymphocyte % 17.4 % (19-41); Mean Corpuscular Hgb 34.1 pg (27.0-32.0); Mean Corpuscular Volume 100.2 fL (80-94); Mean Platelet Vol. 10.3 fl (6.2-12.0); Monocyte# 0.94 X10^3/uL; NRBC Flagged by Analyzer 0 % (0-5); Neutrophil # 4.64 X10^3/uL (2.7-7.7); Neutrophil % 64.1 % (47-70); Platelet Count 135 K/mm3 (150-450); RBC Distribution Width CV 13.4 % (11.6-14.6); RBC Distribution Width SD 49.8 fl (35.1-43.9); Red Blood Count 4.64 M/mm3 (4.6-6.2); White Blood Count 7.2 K/mm3 (4.4-11.0)
[2022-06-23 11:52] LABS: ALB/GLOB Ratio 1.2 RATIO (0.9-2.4); AST(SGOT) 21 U/L (15-37); Alanine Aminotransfer ALT/SGPT 22 U/L (16-61); Albumin, Serum 4.1 g/dL (3.2-5.0); Alkaline Phosphatase 76 U/L (45-117); Anion Gap 3 (5-15); BUN 19 mg/dL (7-18); BUN/Creat Ratio 12.9 RATIO (10-20); Calcium,Total 9.1 mg/dL (8.5-10.1); Chloride 108 mmol/L (98-107); Creatinine, Serum 1.47 mg/dL (0.70-1.30); EST Glomerular Filtration Rate 49 mL/min (>60); Est Glom Filt Rate - Afr Amer 59 mL/min (>60); Globulin 3.5 g/dL (2.2-4.2); Glucose 103 mg/dL (74-106); Potassium 4.4 mmol/L (3.5-5.1); Protein, Total 7.6 g/dL (6.4-8.2); Sodium Level 138 mmol/L (136-145)
[2022-06-23 12:18] LABS: Bilirubin, Direct 0.37 mg/dL (0.00-0.30); Cholesterol 106 mg/dL (200); High Density Lipoprotein 40 mg/dL; Triglycerides 86 mg/dL; Very Low Density Lipoprotein 17 mg/dL (5-40)
== END | disposition home or self-care (01) ==
PROVIDERS: Physician Assistant Medical; Referring Provider Internal Medicine Cardiovascular Disease; Visit Provider Internal Medicine Cardiovascular Disease
DX: E78.00 Pure hypercholesterolemia, unspecified (principal); I48.11 Longstanding persistent atrial fibrillation; Z95.1 Presence of aortocoronary bypass graft; Z95.3 Presence of xenogenic heart valve; Z98.890 Other specified postprocedural states
CPT/HCPCS: 36415; 80053; 80061; 82248; 85025

== ENCOUNTER → 2024-03-15 | Outpatient (CLI) | payer MEDICARE, BC, SELFPAY ==
--- NOTE | 2024-03-15 06:53 | ECHOCS_ITS ---
Reason For Study: MURMUR Procedure This was a 2D Doppler, Color Flow transthoracic echocardiogram. The study was technically difficult. Contrast injection was performed. Exam performed in department. Left Ventricle Normal LV size. The left ventricular ejection fraction is 40 %. No regional wall motion abnormalities noted. Right Ventricle Normal RV size. ICD or pacer leads identified within the right ventricle. Normal systolic function. Atria Normal left atrium. Normal right atrium. Mitral Valve Normal mitral valve. Tricuspid Valve Normal tricuspid valve. Mild (1+) tricuspid valve insufficiency. Pulmonary artery systolic pressure is 38 mmHg. Aortic Valve Peak aortic valve gradient 13 mmHg. Mean aortic valve gradient 6 mmHg. Bioprosthetic aortic valve. Pulmonic Valve Normal pulmonic valve. Great Vessels Mildly dilated aortic root. The pulmonary artery is normal size. Inferior vena cava collapse with respiration. Pericardium/Pleural No pericardial effusion. Medication 22 gauge I.V. with prn adaptor inserted into right arm. Diluted definity 2ml given slow IV push to enhance endocardial definition. MMode/2D Measurements & Calculations LVIDd: 6.3 cm IVSd: 1.0 cm LVOT diam: 2.3 cm LVIDs: 4.7 cm LVPWd: 1.1 cm RVDd: 4.8 cm FS: 25.2 % LVOT area: 4.1 cm2 asc Aorta Diam: 3.1 cm LAV(MOD-bp): 47.7 ml LVAd ap4: 40.1 cm2 LAV(MOD-bp) Indexed: 23.5 ml/m2 LVLd ap4: 8.2 cm LAV(MOD-sp2): 46.2 ml EDV(MOD-sp4): 163.5 ml LAV(MOD-sp4): 50.4 ml EDV(sp4-el): 165.7 ml LVAs ap4: 32.5 cm2 LVLs ap4: 8.0 cm ESV(MOD-sp4): 112.6 ml ESV(sp4-el): 111.9 ml EF(MOD-sp4): 31.1 % EF(sp4-el): 32.4 % LVAd ap2: 32.9 cm2 SV(MOD-sp4): 50.9 ml SV(MOD-sp2): 31.9 ml LVLd ap2: 8.5 cm SI(MOD-sp4): 25.1 ml/m2 SI(MOD-sp2): 15.7 ml/m2 EDV(MOD-sp2): 105.3 ml EDV(sp2-el): 108.4 ml LVAs ap2: 25.6 cm2 LVLs ap2: 7.4 cm ESV(MOD-sp2): 73.4 ml ESV(sp2-el): 74.6 ml EF(MOD-sp2): 30.3 % SV(sp4-el): 53.8 ml Ao sinus diam: 3.[address] Junction: 3.1 cm LA dimension(2D): 4.1 cm LA A4 area: 18.5 cm2 RA A4 area: 21.3 cm2 TAPSE: 1.8 cm Time Measurements MV dec time: 0.18 sec Doppler Measurements & Calculations MV E max solitario: 147.9 cm/sec Lat Peak E' Solitario: 12.7 cm/sec Med Peak E' Solitario: 7.6 cm/sec E/E' lat: 11.6 E/E' med: 19.4 MV V2 max: 133.9 cm/sec Ao V2 max: 178.1 cm/sec LV V1 max: 83.6 cm/sec MV max P.8 mmHg Ao max P.7 mmHg LV V1 max P.8 mmHg MV V2 mean: 72.2 cm/sec Ao V2 mean: 113.9 cm/sec LV V1 mean P.3 mmHg MV mean P.7 mmHg Ao mean P.1 mmHg LV V1 mean: 51.7 cm/sec MV V2 VTI: 30.0 cm Ao V2 VTI: 34.0 cm LV V1 VTI: 16.7 cm MVA(VTI): 2.3 cm2 AV (velocity ratio): 0.49 IBETH(I,D): 2.0 cm2 IBETH(V,D): 1.9 cm2 SV(LVOT): 68.7 ml PA V2 max: 97.8 cm/sec TR max solitario: 292.8 cm/sec TR max P.3 mmHg ECHO/Echo Complete W/ Contrast Interpretation Summary Normal LV size. The left ventricular ejection fraction is 40 %. Mean aortic valve gradient 6 mmHg. Bioprosthetic aortic valve. Contrast injection was performed. Ordering Physician: Rohini Ascencio Referring Physician: Rohini Ascencio Performed By: Liliana Almonte RDCS
--- NOTE | 2024-03-15 20:48 | STRESSREP ---
Stress Test Report Pharmacologic myocardial perfusion stress test. 83-year-old man with a history of coronary artery disease for preop cardiac evaluation Resting EKG demonstrates sinus rhythm with a rate of 64 bpm. Resting blood pressure is 150/72 mmHg. 0.4 mg of regadenoson was infused per usual protocol followed by rapid intravenous saline flush injection. Continuous EKG monitoring was performed. The maximum heart rate was 91 bpm which was 66% of max impacted heart rate the maximum workload was 1 metabolic equivalent. At rest there were no ST or T wave changes noted to suggest ischemia and at peak infusion nonspecific ST changes were noted which did not meet the criteria for ischemia. No clinical angina is noted. The final blood pressure was 140/74 mmHg. Myocardial perfusion protocol. 11.5 mCi of technetium 99m sestamibi was injected at rest. 0.4 mg of regadenoson was infused per usual protocol. At peak infusion 31.5 mCi of technetium 99m sestamibi was injected stress images were obtained stress and rest images were reconstructed and compared in the short axis vertical long and horizontal long axis. Perfusion SPECT analysis: Review of the stress images demonstrate normal uptake of tracer noted in all areas of the myocardium. Minimal reduction of the apex is noted. The resting images similar demonstrated normal uptake of tracer noted in all areas of the myocardium. Minimal reduction in the apex is noted and a small previous infarct in this area cannot be completely excluded. Conclusion: Normal pharmacologic myocardial perfusion stress test.
== END | disposition home or self-care (01) ==
LOC: CVS 06:53
PROVIDERS: Referring Provider Physician Assistant Medical; Visit Provider Physician Assistant Medical
DX: Z95.1 Presence of aortocoronary bypass graft (principal); Z98.890 Other specified postprocedural states; Z95.3 Presence of xenogenic heart valve; I71.9 Aortic aneurysm of unspecified site, without rupture; Z95.0 Presence of cardiac pacemaker; T82.857A Stenosis of other cardiac prosthetic devices, implants and grafts, initial encounter
CPT/HCPCS: 78452; 93017; 93306; A9500; Q9957; A4216; C8929; J2785

== ENCOUNTER → 2024-03-27 | Outpatient (CLI) | payer MEDICARE, BC, SELFPAY ==
[2024-03-27 10:08] LABS: Anion Gap 6 (5-15); BUN 19 mg/dL (7-18); BUN/Creat Ratio 15.1 RATIO (10-20); Calcium,Total 9.4 mg/dL (8.5-10.1); Chloride 107 mmol/L (98-107); Creatinine, Serum 1.26 mg/dL (0.70-1.30); EST Glomerular Filtration Rate 58 mL/min (>60); Est Glom Filt Rate - Afr Amer 70 mL/min (>60); Glucose 95 mg/dL (74-106); Potassium 4.4 mmol/L (3.5-5.1); Sodium Level 138 mmol/L (136-145)
== END | disposition home or self-care (01) ==
PROVIDERS: Referring Provider Physician Assistant Medical; Visit Provider Physician Assistant Medical
DX: I51.9 Heart disease, unspecified (principal)
CPT/HCPCS: 36415; 80048

== ENCOUNTER → 2024-11-29 | Outpatient (CLI) | payer MEDICARE, BC, SELFPAY ==
--- NOTE | 2024-11-29 08:37 | CT_ITS ---
PROCEDURE: EXTREMITY UPPER WITHOUT CONTRA 11/29/2024 REASON FOR EXAM: SHOULDER TRAUMA/SPRAIN/TENDONITIS TECHNIQUE: Procedure Code: CTEUWO Modality: CT Procedure: EXTREMITY UPPER WITHOUT CONTRA Coronal and Sagittal reconstruction series were provided. One or more dose reduction techniques were used (e.g., Automated exposure control, adjustment of the mA and/or kV according to patient size, use of iterative reconstruction technique. RADIATION DOSE SUMMARY: DLP: 604 mGycm COMPARISON: None FINDINGS: Bones: There is no fracture or dislocation identified. 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 There is no visible loose body. Joints: The AC joint is aligned without evidence of separation. There is a type 3 acromion with impingement configuration. 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 Soft Tissues: Surgical clips are present in the right axilla. There is a 0.3 cm solid peripheral nodule in the right upper lung, image 29/94. The ascending aorta is partly visible and appears enlarged to at least 4.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 There is a type 3 acromion with impingement configuration. 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 There is a 0.3 cm solid peripheral nodule in the right upper lung, image 29/94. Chest CT correlation is recommended. The ascending aorta is partly visible and appears enlarged to at least 4.7 cm. Follow-up is recommended. Reading Location: [place]
== END | disposition home or self-care (01) ==
LOC: CT 08:18
PROVIDERS: Referring Provider Student in an Organized Health Care Education/Training Program; Visit Provider Student in an Organized Health Care Education/Training Program
DX: S46.011D Strain of muscle(s) and tendon(s) of the rotator cuff of right shoulder, subsequent encounter (principal); M75.21 Bicipital tendinitis, right shoulder
CPT/HCPCS: 73200

== ENCOUNTER 2024-12-18 11:00 | Observation (INO) | payer MEDICARE, BC, SELFPAY ==
--- NOTE | 2024-11-23 20:31 | PAT.ANESEVAL ---
Pre-Assessment Diagnosis/Proposed Procedure Planned Operative Procedure(s): (R) Total Shoulder Replacement, Reverse Anesthesia History Anesthesia History - drug counselor: Anesthesia History - drug counselor Hx Hospitalization No 11/22/24 09:31 Any Problems With Anesthesia No 11/22/24 09:31 Cholinesterase deficiency No 11/22/24 09:31 You/Your Family Experience No 11/22/24 09:31 fever (hyperthermia) with Relationship Recent Exposure to Contagious Disease Does patient have nerve No 11/22/24 09:31 stimulator Patient instructed to have device shut off --Does patient have Pacemaker or ICD? When Was Last Pacemaker Check QUESTION #4 FULL TEXT: You/Your Family Experience fever (hyperthermia) with Anesthesia Last Oral Intake Last Oral intake: Last Oral Intake NPO since Meds taken in AM with sips of water? Meds patient instructed to take am of surgery PONV PONV - drug counselor: PONV - drug counselor Female No 11/22/24 09:31 HX of Motion Sickness No 11/22/24 09:31 HX of N/V After Surgery No 11/22/24 09:31 Non-Smoker Yes 11/22/24 09:31 Duration of Surgery greater Yes 11/22/24 09:31 than 60 minutes Number of Risk Factors 2 11/22/24 09:31 PONV Score Moderate Risk 11/22/24 09:31 Height & Weight Height & Weight: Anesthesia: Height & Weight Height 5 ft 11 in 10/31/24 09:13 Respiratory Assessment Respiratory Assessment - drug counselor: Respiratory Tract Infection Hx - drug counselor Hx Respiratory Tract Infection No 11/22/24 09:31 STOP Sleep Apnea STOP Sleep Apnea - drug counselor: STOP Sleep Apnea - drug counselor Hx Hypertension Yes: CONTROLLED ON MED 11/22/24 09:31 Hx Sleep Apnea No 11/22/24 09:31 CPAP BIPAP Do you snore loudly (louder No 11/22/24 09:31 than talking or can be heard Do you often feel tired/ No 11/22/24 09:31 fatigued/ sleepy during daytime? Has anyone observed you stop No 11/22/24 09:31 breathing during sleep? STOP Results Negative 11/22/24 09:31 QUESTION #5 FULL TEXT : Do you snore loudly (louder than talking or can be heard through closed doors)? 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 Specify any problems Hx of Preganancy in last 3 N/A 11/22/24 09:31 Months Nurse Filling Out Transfusion VCHRISTIN 11/22/24 09:31 & Questions: Date: 11/22/24 11/22/24 09:31 Time: 09:32 11/22/24 09:31 Patient unable to answer at this time (ie. confused, unrespo /Reproduction History /Reproductive History - drug counselor: /Reproductive Hx- drug counselor Hx Now No 11/22/24 09:31 Gestational Age (in weeks): EDC: Hx Hx Para Hx Section SAB No 11/22/24 09:31 PFSH Medical History (Updated 11/22/24 @ 09:30 by Clarissa Fajardo) Wears glasses Arthritis Kidney stones High cholesterol Injury of head and neck Gastric reflux Non-smoker History of pain when walking History of edema History of echocardiogram History of stress test Cardiology follow-up encounter Hypertension History of skin cancer Cardiomyopathy Decreased left ventricular function Left ventricular diastolic dysfunction Longstanding persistent atrial fibrillation Chronic combined systolic and diastolic CHF (congestive heart failure) Sick sinus syndrome Thrombocytopenia Atrial fibrillation and flutter (11/2019) Essential (primary) hypertension Petechiae Headache Poor historian 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) Right bundle branch block (RBBB) Prosthetic aortic valve stenosis Junctional rhythm Postoperative atrial fibrillation (05/11/19) 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 Nonrheumatic mitral (valve) insufficiency Nonrheumatic aortic (valve) stenosis with insufficiency Hx of renal calculi Hyperlipidemia Atherosclerotic heart disease of [place] coronary artery without angina pectoris Home Medications ?Medication ?Instructions ?Recorded ?Last Taken ?Type nitroglycerin 0.4 mg sublingual 0.4 mg sublingual Q5-15M PRN chest 03/08/23 Unknown Rx tablet pain #25 tabs apixaban 5 mg tablet (Eliquis) 5 mg PO BID #60 tabs 02/21/24 Unknown Rx atenolol 25 mg tablet 25 mg PO DAILY #90 tabs 02/21/24 Unknown Rx atorvastatin 10 mg tablet 10 mg PO DAILY #90 tabs 09/04/24 Unknown Rx clindamycin HCl 300 mg capsule 600 mg PO .COMPLEX PRN PRIOR TO 10/31/24 Unknown History DENTAL APPOINTMENTS sacubitril 24 mg-valsartan 26 mg 1 tab PO BID #180 tabs 10/31/24 Unknown Rx tablet (Entresto) amlodipine 5 mg tablet 5 mg PO QHS 11/22/24 Unknown History Allergy/AdvReac Type Severity Reaction Status Date / Time Penicillins Allergy Intermediate rash Verified 11/22/24 09:07 sulfamethoxazole (From Allergy Intermediate rash Verified 11/22/24 09:07 Bactrim) trimethoprim (From Bactrim) Allergy Intermediate rash Verified 11/22/24 09:07 animal dander Allergy Unknown Ears plug Verified 11/22/24 09:07 up grass pollen Allergy Unknown plugs ears Verified 11/22/24 09:07 up lidocaine Allergy Unknown unknown Verified 11/22/24 09:07 oxycodone (From Percocet) AdvReac Intermediate GI upset Verified 11/22/24 09:07 spironolactone AdvReac Intermediate Diarrhea Verified 11/22/24 09:07 egg AdvReac Ears plug Verified 11/22/24 09:07 up, can't hear Family History Mother , age 82 lung problems No problems noted. Father , age 40 ruptured appendix No problems noted. Surgical History (Updated 11/22/24 @ 09:30 by Clarissa Fajardo) History of placement of leadless cardiac pacemaker (05/09/20) History of aortic root repair (05/11/19) History of mitral valve repair (05/11/19) History of left heart catheterization (10/25/18) History of ear surgery Hx of cholecystectomy H/O coronary artery bypass surgery (07/17/05) Hx of vasectomy Hx of fracture of ankle History of aortic valve replacement with bioprosthetic valve (05/11/19) Social History Smoking Status: Former smoker how long ago did patient quit smokin alcohol intake: never substance use type: does not use caffeine: Yes Type: coffee Number of servings: 3 Audit: Pertinent Findings Pertinent Findings EKG Perinent findings: October 31, 2024. Atrial flutter with PVC. Right bundle branch block. Left anterior fascicular block. Stress test pertinent findings: 03/15/2024. Normal pharmacologic myocardial perfusion stress test. Echo (EF%) pertinent findings: 03/15/2024. EF of 40%. PASP is 38 mmHg. Bioprosthetic aortic valve. Mean aortic valve gradient is 6 mmHg. Peak gradient is 13 mmHg. Heart catheterization pertinent findings: 10/25/2018. EF is 60%. Patent ESTRELLA to the LAD. 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 Ascending aortic aneurysm. Consult pertinent findings: October 31, 2024. Silva DOE. 1. Longstanding persistent atrial fibrillation-continue atenolol and Eliquis. 2. History of placement of leadless cardiac pacemaker-VVI leadless pacemaker (Micra) 05/09/2020. 3. History of coronary artery bypass surgery-ESTRELLA to the LAD. Stress test negative for ischemia. 4. History aortic valve replacement with bioprosthetic valve (redo AVR 05/11/2019). Stable valve by echo 03/15/2024. Continue antibiotic prophylaxis. 5. History of mitral valve repair-continues to do well with no heart failure symptoms. 6. 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 Blood pressure has been under good control. 7. Hypertension-good control. 8. Cardiomyopathy-EF is decreased to 40% on latest echo. Continue atenolol. Titrating other medications. 9. Preop clearance for shoulder surgery-he is cardiac cleared for surgery. Recommendation Anesthesia Recommendation Anesthesia recommendation: OPTIMIZED for anesthesia
[2024-11-29 09:02] LABS: Hematocrit 41.3 % (40-54); Hemoglobin 13.8 g/dL (13.0-16.5); Immature Granulocytes Count 0.040 X10^3/uL (0.0-0.0); Mean Corp Hgb Conc 33.4 g/dL (32-36); Mean Corpuscular Volume 98.1 fL (80-94); Mean Platelet Vol. 10.8 fl (6.2-12.0); NRBC Flagged by Analyzer 0 % (0-5); Platelet Count 111 K/mm3 (150-450); RBC Distribution Width CV 13.3 % (11.6-14.6); RBC Distribution Width SD 48.7 fl (35.1-43.9); Red Blood Count 4.21 M/mm3 (4.6-6.2); White Blood Count 7.2 K/mm3 (4.4-11.0)
[2024-11-29 09:50] LABS: Magnesium 2.0 mg/dL (1.5-2.2)
[2024-11-29 09:54] LABS: Anion Gap 13 (5-15); BUN 30 mg/dL (4-19); BUN/Creat Ratio 18.9 RATIO (10-20); Calcium,Total 9.4 mg/dL (7.6-11.0); Carbon Dioxide 21.8 mmol/L (21.0-32.0); Chloride 106 mmol/L (98-108); Glucose 113 mg/dL (70-99); Potassium 4.5 mmol/L (3.3-5.1)
[2024-12-18] VITALS (14 sets, daily range): BP systolic 85–109; BP diastolic 51–69; PULSE 40–97; RESP 14–18; TEMP 36–37; O2SAT 92–100; BMI 24.3
--- OUTSIDE RECORDS SUMMARY | 2024-12-18 07:56 | XMS RPT_ITS | CCD ---
Author Organization [facility] CliniSyor Care Team Providers Care Line Construction Superintendent Name Role Phone ASAEL LARA, LOREN Hood Primary Care Physician [phone] Dawood PT, Asra Unavailable Unavailable Dr. Loren Brunson Primary Care Provider Dr. Loren Brunson Referring Provider [phone] Olimpia Okeefe Attending Provider Unavailable Dr. Pastor Porras Attending Provider [phone] WILL NARAYANAN, HANSEL E Primary Care Physician RONDA Almanzar Attending Provider Care Physician, No Primary Primary Care Provider Unavailable Care Physician, No Primary Referring Provider Un available Olimpia Okeefe Attending Provider Unavailable SOLIS DO, HANSEL E Attending Unavailable SOLIS DO, HANSEL E Primary Care Unavailable JERZY GUTIERREZ Attending Unavailable SOLIS DO, HANSEL E Primary Care Unavailable JAGDISH PRECISION LENS GENERATOR-FRENCH PASTRY COOKPAPI Attending Un available SOLIS DO, HANSEL E Primary Care Unavailable JAGDISH PRECISION LENS GENERATOR-FRENCH PASTRY COOK, PAPI Amezcua Attending Un available SOLIS DO, HANSEL E Primary Care Unavailable SOLIS DO, HANSEL E Attending Unavailable SOLIS DO, HANSEL E Primary Care Unavailable SOLIS DO, HANSEL E Attending Unavailable SOLIS DO, HANSEL E Primary Care Unavailable SOLIS DO, HANSEL E Primary Care Unavailable SOLIS DO, HANSEL E Attending Unavailable SOLIS DO, HANSEL E Primary Care Unavailable SOLIS DO, HANSEL E Attending Unavailable SOLIS DO, HANSEL E Primary Care Unavailable SOLIS DO, HANSEL E Attending Unavailable SOLIS DO, HANSEL E Attending Unavailable SOLIS DO, HANSEL E Primary Care Unavailable Dr. Hansel Solis DO Primary Care Provider [phone] Dr. Pastor Porras MD Attending Provider [phone] Dr. Pastor Porras MD Referring Provider [phone] Dr. Hansel Solis DO Referring Provider Rohini Almanzar Attending Provider [phone] Dr. Hansel Solis DO Primary Care Provider Dr. Pastor Porras MD Attending Provider [phone] Chiquita LARA, Dr. Baumann Referring Provider [phone] Hansel Solis Primary Care Unavailable Rohini Almanzar Referring Unavail able Rohini Almanzar Attending Unavail able Spittle, Jose Referring Unavailable Spittle, Jose Attending Unavailable Solis, Hansel Primary Care Unavailable Solis, Hansel Primary Care Unavailable Rohini Almanzar Referring Unavail able Rohini Almanzar Attending Unavail able Chiquita, Salvo Referring Unavailable Solis, Hansel Primary Care Unavailable Chiquita, Pastor Attending Unavailable Solis, Hansel Primary Care Unavailable Chiquita, Pastor Attending Unavailable Chiquita, Pastor Referring Unavailable Solis, Hansel Primary Care Unavailable Solis, Hansel Referring Unavailable Rohini Almanzar Attending Unavail able Chiquita, Pastor Referring Unavailable Solis, Hansel Primary Care Unavailable Chiquita, Salvo Attending Unavailable Solis, Hansel Primary Care Unavailable Chiquita, Pastor Attending Unavailable Chiquita, Pastor Referring Unavailable Solis, Hansel Primary Care Unavailable Chiquita, Salvo Attending Unavailable Solis, Hansel Primary Care Unavailable Chiquita, Pastor Referring Unavailable Chiquita, Salvo Attending Unavailable Solis, Hansel Primary Care Unavailable Solis, Hansel Referring Unavailable Rohini Almanzar Attending Unavail able Solis, Hansel Primary Care Unavailable Rohini Almanzar Attending Unavail able Care Physician, No Primary Referring Unava ilable Solis, Hansel Primary Care Unavailable Chiquita, Pastor Attending Unavailable Chiquita, Pastor Referring Unavailable Solis, Hansel Primary Care Unavailable Chiquita, Pastor Attending Unavailable Chiquita, Pastor Referring Unavailable Solis, Hansel Primary Care Unavailable Chiquita, Pastor Attending Unavailable Spittle, Jose Referring Unavailable Spittle, Jose Attending Unavailable Solis, Hansel Primary Care Unavailable Allergies Allergy Classification Reported Allergen(s) Allergy Type Date of Onset Reaction(s) Facility (15 sources) Acetaminophen / oxyCODONE; Translations: [acetaminophen-oxyco done] Drug Allergy [facility] (15 sources) Benzocaine / butamben / Tetracaine; Translations: [benzocaine-tetracai ne topical] Drug Allergy Unknown [facility] (15 sources) Egg Drug allergy [facility] (15 sources) Penicillin; Translations: [penicillin] Drug Allergy [facility] (20 sources) Sulfamethoxazole; Translations: [sulfamethoxazole] Drug Allergy 12-24-19 22 rash [facility] (20 sources) Sulfamethoxazole / Trimethoprim; Translations: [sulfamethoxazole-tr imethoprim] Drug Allergy Unknown [facility] (2 sources) Acetaminophen Drug Allergy 12-24-19 22 GI upset [facility] (5 sources) egg extract Drug Allergy 12-24-19 22 Ears plug up, can't hear [facility] (5 sources) Lidocaine Drug Allergy 12-24-19 22 unknown [facility] (5 sources) oxyCODONE Drug Allergy 12-24-19 22 GI upset [facility] (5 sources) Penicillins Allergy to substance 12-24-19 22 [facility] (5 sources) Trimethoprim Drug Allergy 12-24-19 22 [facility] (4 sources) Spironolactone; Translations: [spironolactone] Drug Allergy 07-28-19 25 Diarrhea (finding) [facility] (4 sources) Grass pollen; Translations: [grass pollen] Allergy to substance 07-28-19 25 plugs ears up [facility] (4 sources) animal dander; Translations: [animal dander] Allergy to substance 07-28-19 25 Ears plug up [facility] (1 source) Acetaminophen Drug Allergy 02-21-20 24 [facility] (1 source) egg extract Drug Allergy 11-23-19 [facility] (1 source) Lidocaine Drug Allergy 11-23-19 [facility] (1 source) oxyCODONE Drug Allergy 11-23-19 [facility] (1 source) Penicillins Drug allergy (disorder) 11-23-19 [facility] (1 source) Spironolactone Drug Allergy 11-23-19 [facility] (1 source) Sulfamethoxazole Drug Allergy 11-23-19 [facility] (1 source) Trimethoprim Drug Allergy 11-23-19 [facility] Medications Current Medications Medication Drug Class(es) Dates Sig (Normalized) Sig (Original) clindamycin 300 mg oral capsule (20 sources) Lincosamide Antibacterial Start: 06-26-2022 clindamycin 300 mg oral capsule 0 Refill(s), 84.6 Start Date: 06/26/22 Status: Ordered Start: 04-29-2021 End: 10-31-2024 take 2 tablets by mouth every hour Clindamycin Hcl 300 mg capsule Discontinued 300 mg PO .COMPLEX 2 2 November 12, 2021 10:30am June 23, 2022 9:14am 300 mg PO 2 tablets by mouth 1 hour prior to dental procedure Start: 07-03-2020 End: 12-23-2020 take 2 capsules by mouth every hour Clindamycin Hcl Discontinued 600 MG PO ONCE 2 October 24, 2020 4:39pm December 23, 2020 2:01pm 2 capsules by mouth 1 hour prior to dental procedure Start: 03-11-2017 End: 12-23-2020 take 2 capsules by mouth every hour as needed Clindamycin Hcl 300 mg capsule Discontinued 600 mg PO ONCE as needed for antibiotic 2 2 October 24, 2020 4:39pm December 23, 2020 2:01pm 2 capsules by mouth 1 hour prior to dental procedure clotrimazole 10 mg/ml topical cream (5 sources) Azole Antifungal Start: 02-18-2022 clotrimazole 1% topical cream Apply 1 mahesh, Topical, BID, # 30 gram(s), 0 Refill(s), Pharmacy: [facility]/pharmacy #[id number], Cream, 179, cm, 02/18/22 10:34:00 EST, Height, 84.6, kg, 02/18/22 10:34:00 EST, Dosing Weight Start Date: 02/18/22 Status: Ordered Start: 06-25-2020 clotrimazole 1 % topical cream Apply 1 mahesh, Topical, BID, # 24 gram(s), 0 Refill(s), Pharmacy: [facility]/pharmacy #[id number], Cream, 177, cm, 06/25/20 9:02:00 EDT, Height, 90.8, kg, 06/25/20 9:02:00 EDT, Dosing Weight Start Date: 06/25/20 Status: Ordered doxycycline hyclate 100 mg oral capsule (1 source) Tetracycline-class Drug Start: 07-30-2022 End: 08-09-2022 doxycycline hyclate 100 mg oral capsule Dose : 100 mg = 1 cap(s), Oral, q12h, X 10 day(s), # 20 cap(s), 0 Refill(s), 08/09/22 9:09:00 EDT, [id number], Community acquired pneumonia, 177.8, cm, 07/30/22 8:14:00 EDT, Height, 85.6 Start Date: 07/30/22 Stop Date: 08/09/22 Status: Ordered Multivitamin preparation (14 sources) Start: 03-29-2010 take 1 tablet by mouth once daily Multivitamin Dose = 1 tab(s), PO, Daily, 0 Refill(s), current med (Hx) Start Date: 03/29/10 Status: Ordered Repeat number: 1 Start: 03-29-2010 take 1 tablet by evens th once daily Multivitamin Dose = 1 tab(s), PO, Daily, 0 Refill(s), current med (Hx) Start Date: 03/29/10 Status: Ordered Start: 03-29-2010 take 1 tablet by evens th once daily Multivitamin 1 tab(s), PO, Daily, 0 Refill(s), current med (Hx) Start Date: 03/29/10 Status: Ordered nitroglycerin 0.4 mg subling ual tablet (3 sources) Start: 10-26-2018 nitroglycerin 0.4 mg sublingual tablet 0 Refill(s) Start Date: 10/26/18 Status: Ordered Sling and Swathe (6 sources) Start: 06-18-2023 Sling and Swat he See Instructions, S/p fall with significant injury to right shoulder and wrist., # 1 EA, 0 Refill(s), Right shoulder injury Right wrist pain, 84 Start Date: 06/18/23 Status: Ordered Quantity: 1.0 Unit: EA Repeat number: 1 Indications: Pain in right wrist; Unspecified injury of right shoulder and upper arm, initial encounter; Start: 06-18-2023 Sling and Swat he See Instructions, S/p fall with significant injury to right shoulder and wrist., # 1 EA, 0 Refill(s), Right shoulder injury Right wrist pain, 84 Start Date: 06/18/23 Status: Ordered Sodium Chloride (3 sources) Start: 07-30-2022 Saline Mist 0. 65% nasal spray Dose = 1 spray(s), Intranasal, QID, PRN as needed for dry nasal passages, in each nostril, # 44 mL, 0 Refill(s), Pharmacy: [facility]/pharmacy #[id number], Sinusitis, 177.8, cm, 07/30/22 8:14:00 EDT, Height Start Date: 07/30/22 Status: Ordered Start: 07-30-2022 Saline Mist 0. 65% nasal spray Dose = 1 spray(s), Intranasal, QID, PRN PRN as needed for dry nasal passages, in each nostril, # 44 mL, 0 Refill(s), Pharmacy: [facility]/pharmacy #[id number], Sinusitis, 177.8, cm, 07/30/22 8:14:00 EDT, Height Start Date: 07/30/22 Status: Ordered traMADol hydrochloride 50 mg oral tablet (2 sources) Opioid Agonist Start: 06-18-2023 End: 06-25-2023 traMADol 50 mg oral tablet Dose : 50 mg = 1 tab(s), Oral, q8h, PRN for pain, X 7 day(s), # 12 tab(s), 0 Refill(s), 06/25/23 2:08:00 PM EDT, Pharmacy: [facility]/pharmacy #[id number], Right shoulder injury Fall at home, 177, cm, 06/18/23 13:08:00 EDT, Height, 84, kg, 06/18/23 13:08:00 EDT, Dosing Weight Start Date: 06/18/23 Stop Date: 06/25/23 Status: Ordered triamcinolone acetonide 1 mg/ml topical cream (2 sources) Corticosteroid Start: 03-07-2024 triamcinolone 0.1% topical cream Apply 1 mahesh, Topical, BID, apply thin film to affected area. MAX 14 days, then 7 days break, # 30 gram(s), 0 Refill(s), Pharmacy: [facility]/pharmacy #[id number], Cream, 177.9, cm, 03/07/24 9:38:00 EST, Height, 82.8, kg, 03/07/24 9:38:00 EST, Dosing Weight Start Date: 03/07/24 Status: Ordered Quantity: 30.0 Unit: g Repeat number: 1 Indications: Dermatitis, unspecified; Completed/Discontinued Medications Medication Drug Class(es) Dates Sig (Normalized) Sig (Original) amLODIPine 5 mg oral tablet (20 sources) Dihydropyridine Calcium Channel Rico Start: 12-23-2021 End: 02-21-2024 take 1 tablet by mouth once daily Amlodipine 5 mg tablet Discontinued 5 mg PO DAILY 90 March 08, 2023 2:55pm February 21, 2024 10:25am Start: 12-13-2019 End: 12-23-2021 take 1 tablet by mouth once daily Amlodipine 10 mg tablet Discontinued 10 mg PO DAILY 90 3 December 18, 2020 9:25am December 23, 2020 2:28pm Start: 10-25-2018 End: 05-23-2019 take 1 tablet by mouth once daily Amlodipine 5 mg tablet Discontinued 5 mg PO DAILY 30 October 25, 2018 12:00am May 23, 2019 2:51pm apixaban 5 mg oral tablet (20 sources) Factor Xa Inhibitor Start: 03-20-2020 End: 02-21-2024 take 1 tablet by mouth twice daily Apixaban (Eliquis) 5 mg tablet Discontinued 5 mg PO TWICE A DAY 60 July 16, 2020 4:23pm April 29, 2021 11:04am Start on wednesday the aspirin 81 mg delayed release oral tablet (5 sources) Platelet Aggregation Inhibitor, Nonsteroidal Anti-inflammatory Drug Start: 03-11-2017 End: 05-23-2019 take 1 tablet by mouth once daily Aspirin (Adult Aspirin Regimen) 81 mg tablet,delayed release (/EC) Discontinued 81 mg PO daily March 11, 2017 1:00am May 23, 2019 2:51pm atenolol 25 mg oral tablet (20 sources) beta-Adrenergic Rico Start: 05-22-2020 End: 02-21-2024 take 1 tablet by mouth once daily Atenolol 25 mg tablet Discontinued 25 mg PO DAILY 90 3 March 08, 2023 2:56pm February 21, 2024 10:25am atorvastatin 10 mg oral tablet (20 sources) HMG-CoA Reductase Inhibitor Start: 09-02-2023 End: 09-04-2024 take 1 tablet by mouth once daily Atorvastatin 10 mg tablet Discontinued 10 mg PO DAILY 90 3 September 02, 2023 2:32pm September 04, 2024 11:40am Start: 03-11-2017 End: 06-23-2022 take 1 tablet by mouth once daily Atorvastatin (Lipitor) 10 mg tablet Discontinued 10 mg PO daily 90 3 November 14, 2020 9:37am April 29, 2021 11:04am empagliflozin 10 mg oral tablet (3 sources) Sodium-Glucose Cotransporter 2 Inhibitor Start: 05-01-2024 End: 07-27-2024 take 1 tablet by mouth once daily in the morning Empagliflozin (Jardiance) 10 mg tablet Discontinued 10 mg PO EVERY MORNING 25 02May 01, 2024 1:00am July 27, 2024 10:17am furosemide 40 mg oral tablet (20 sources) Loop Diuretic Start: 07-03-2020 End: 02-21-2024 take 1 tablet by mouth once daily as needed Furosemide 40 mg tablet Discontinued 40 mg PO DAILY as needed December 23, 2021 8:58am February 21, 2024 9:55am Start: 07-03-2020 End: 07-03-2020 take 1 tablet by mouth once daily Furosemide (Lasix) 20 mg tablet Discontinued 20 mg PO DAILY July 03, 2020 12:00am July 03, 2020 10:18am Start: 05-31-2019 End: 10-26-2019 take 1 tablet by mouth once daily Furosemide 20 mg tablet Discontinued 20 mg PO DAILY May 31, 2019 1:00am October 26, 2019 9:43am levETIRAcetam 500 mg oral ta blet (5 sources) Start: 10-26-2019 End: 12-13-2019 Levetiracetam 500 mg tablet Discontinued PO October 26, 2019 12:00am December 13, 2019 2:04pm Start: 10-26-2019 End: 12-13-2019 Levetiracetam Discontinued P O October 26, 2019 12:00am December 13, 2019 2:04pm melatonin 3 mg oral capsule (5 sources) Start: 05-23-2019 End: 10-26-2019 take 1 capsule by mouth at bedtime as needed Melatonin 3 mg capsule Discontinued 3 mg PO BEDTIME as needed May 23, 2019 1:00am October 26, 2019 9:45am metoprolol tartrate 50 mg oral tablet (20 sources) beta-Adrenergic Rico Start: 04-16-2020 End: 05-22-2020 Metoprolol Tartrate 50 mg tablet Discontinued 25 mg PO TWICE A DAY May 06, 2020 9:49am May 22, 2020 5:05pm blood pressure/heart rate Start: 04-16-2020 End: 05-22-2020 take 25 mg by mouth twice daily Metoprolol Tartrate Di scontinued 25 MG PO TWICE A DAY May 06, 2020 9:49am May 22, 2020 5:05pm Start: 05-23-2019 End: 04-16-2020 take 1 tablet by mouth twice daily Metoprolol Tartrate 50 mg tablet Discontinued 50 mg PO TWICE A DAY 180 4 January 25, 2020 9:05am April 16, 2020 2:39pm Start: 03-11-2017 End: 10-21-2018 take 0.5 tablet by mouth twice daily Metoprolol Tartrate 25 mg tablet Discontinued 25 mg PO .COMPLEX 30 11 June 20, 2018 5:49pm October 21, 2018 2:13pm 25 mg PO 1/2 tablet by mouth bid Multivitamin (Daily Multi-Vitamin) tablet (5 sources) Start: 04-21-2018 End: 09-02-2023 Multivitamin (Daily Multi-Vitamin) tablet Discontinued 1 {tbl} PO DAILY April 21, 2018 1:00am September 02, 2023 1:52pm supplement Start: 04-21-2018 End: 09-02-2023 Multivitamin (Daily Multi-Vi tamin) tablet Discontinued 1 {tbl} PO DAILY April 21, 2018 1:00am September 02, 2023 1:52pm Start: 04-21-2018 take 1 tablet by evens th once daily Multivitamin (Daily Multi-Vitamin) tablet Active 1 TABLET PO DAILY April 21, 2018 1:00am nitroglycerin 0.4 mg sublingual tablet (20 sources) Nitrate Vasodilator Start: 10-26-2018 nitroglyce rin 0.4 mg sublingual tablet 0 Refill(s) Start Date: 10/26/18 Status: Ordered Repeat number: 1 Start: 03-11-2017 End: 03-08-2023 Nitroglycerin 0.4 mg tablet, sublingual Discontinued 0.4 mg SL every 5 to 15 minutes as needed for chest pain 20 06April 28, 2021 9:53am March 08, 2023 2:56pm Start: 03-11-2017 End: 04-28-2021 Nitroglycerin Discontinued 0 .4 MG SL every 5 to 15 minutes June 20, 2018 5:49pm December 23, 2020 2:28pm pantoprazole 40 mg delayed release oral tablet (5 sources) Proton Pump Inhibitor Start: 05-23-2019 End: 10-26-2019 take 1 tablet by mouth once daily Pantoprazole 40 mg tablet,delayed release (DR/EC) Discontinued 40 mg PO DAILY May 23, 2019 1:00am October 26, 2019 9:43am potassium gluconate 2.5 meq oral tablet (5 sources) Start: 03-11-2017 End: 09-15-2017 take 1 tablet by mouth once daily Potassium Gluconate 595 mg (99 mg) tablet Discontinued 595 mg PO daily March 11, 2017 1:00am September 15, 2017 11:02am sacubitril / valsartan (3 sources) Angiotensin 2 Receptor Rico Start: 07-27-2024 End: 10-31-2024 Sacubitril-Valsartan (Entresto) 24-26 mg tablet Discontinued 1 {tbl} PO TWICE A DAY 60 July 27, 2024 12:00am October 31, 2024 9:19am Start: 07-27-2024 Sacubitril-Wanda sartan (Entresto) 24-26 mg tablet Active 1 {tbl} PO TWICE A DAY 60 July 27, 2024 12:00am Start: 07-27-2024 Sacubitril-Wanda sartan (Entresto) 24-26 mg tablet Active 1 {tbl} PO TWICE A DAY 60 July 27, 2024 12:00am sennosides, fdc 8.6 mg oral tablet (5 sources) Start: 05-23-2019 End: 10-26-2019 take 1 tablet by mouth at bedtime Sennosides (Senna) 8.6 mg tablet Discontinued 8.6 mg PO AT BEDTIME May 23, 2019 1:00am October 26, 2019 9:43am spironolactone 25 mg oral tablet (3 sources) Aldosterone Antagonist Start: 03-16-2024 End: 05-01-2024 take 1 tablet by mouth once daily Spironolactone 25 mg tablet Discontinued 25 mg PO DAILY 30 March 16, 2024 1:00am May 01, 2024 3:41pm On Hold: diarrhea warfarin sodium 5 mg oral tablet (15 sources) Vitamin K Antagonist Start: 05-23-2019 End: 12-13-2019 take 1 tablet by mouth once daily Warfarin 5 mg tablet Discontinued 5 mg PO DAILY 60 May 31, 2019 12:55pm December 13, 2019 2:04pm On Hold: SDH 06/2019 Problems Active Problems Problem Classification Problem Date Documented Date Episodic/Chronic Acute cerebrovascular disease (5 sources) Hematoma of subdural space of neuraxis; Translations: [Subdural hematoma] Onset: 06-28-2019 12-22-2021 Chronic Aortic; peripheral; and visceral artery aneurysms (12 sources) Aneurysm of aortic root; Translations: [Aneurysm of aortic root] Onset: 10-31-2024 Chronic Comment on above: Focal Aortic Arch Di ssection: hemiarch replacement w/ 30 mm Gelweave Valsava graft 05/11/2019 Cardiac dysrhythmias (20 sources) Atrial fibrillation; Translations: [Heart irregularly irregular] Onset: 11-28-2019 10-26-2018 Chronic Chronic kidney disease (13 sources) Chronic kidney disease stage 3A ; Translations: [Chronic kidney disease, stage 3a] Chronic Coagulation and hemorrhagic disorders (5 sources) Thrombocytopenic disorder; Translations: [Thrombocytopenia, unspecified] 07-02-2020 Chronic Conditions associated with dizziness or vertigo (5 sources) Lightheadedness; Translations: [Dizziness and giddiness] 03-06-2020 Episodic Conduction disorders (20 sources) H/O: cardiac pacemaker in situ; Translations: [Presence of cardiac pacemaker] Onset: 05-09-2020 Chronic Comment on above: - insertion of VVI l eadless pacemaker (Micra) 05/09/2020 Congestive heart failure; nonhypertensive (20 sources) Congestive heart failure; Translations: [Chronic combined systolic and diastolic heart failure] 06-20-2020 Chronic Coronary atherosclerosis and other heart disease (20 sources) Coronary arteriosclerosis; Translations: [Coronary atherosclerosis] Onset: 10-31-2024 10-25-2018 Chronic Coronary atherosclerosis and other heart disease (3 sources) Presence of aortocoronary bypass graft; Translations: [Aortocoronary bypass status] Onset: 07-17-2005 Episodic Diabetes mellitus without complication (3 sources) Diabetes mellitus 10-25-2018 Chronic Disorders of lipid metabolism (20 sources) Mixed hyperlipidemia; Translations: [Hyperlipidemia] 10-25-2018 Chronic E Codes: Fall (1 source) Fall; Translations: [Unspecified fall, subsequent encounter] Episodic Esophageal disorders (15 sources) Gastroesophageal reflux disease 10-25-2018 Chronic Essential hypertension (20 sources) Benign essential hypertension; Translations: [Essential hypertension] Onset: 03-07-2024 05-31-2019 Chronic Gout and other crystal arthropathies (16 sources) Gout; Translations: [Gout, unspecified] 01-09-2020 Chronic Heart valve disorders (20 sources) Aortic valve disorder; Translations: [Aortic valve stenosis] Onset: 05-11-2019 10-25-2018 Chronic Comment on above: CABG x 1 ESTRELLA-LAD an d AVR w/ [address] Indra Valve 07/17/2005; Re-Do Sternotomy AVR w/ 27 mm CE valve and 30 mm Gelweave Valsava graft, MVR with a 29 mm Galvin band, reimplantation of coronary arteries 05/11/19 Heart valve disorders (6 sources) Heart murmur; Translations: [Irregular heart beat] 10-25-2018 Episodic Hyperplasia of prostate (15 sources) Benign prostatic hyperplasia 10-25-2018 Chronic Malaise and fatigue (5 sources) Fatigue; Translations: [Other fatigue] 03-06-2020 Episodic Mycoses (15 sources) Tinea corporis 06-25-2020 Episodic Osteoarthritis (1 source) Localized, primary osteoarthritis of the shoulder region; Translations: [Primary osteoarthritis, right shoulder] Chronic Other aftercare (10 sources) Long-term current use of anticoagulant 06-25-2022 Episodic Other and ill-defined heart disease (5 sources) Left ventricular diastolic dysfunction ; Translations: [Heart disease, unspecified] 12-22-2021 Chronic Other and ill-defined heart disease (3 sources) Impaired left ventricular function; Translations: [Heart disease, unspecified] 03-16-2024 Chronic Other and ill-defined heart disease (1 source) Heart disease, unspecified; Translations: [Heart disease, unspecified] Onset: 05-01-2024 Chronic Other connective tissue disease (8 sources) Hand pain 10-27-2022 Episodic Other connective tissue disease (1 source) Biceps tendinitis; Translations: [Bicipital tendinitis, right shoulder] Episodic Other ear and sense organ disorders (12 sources) Hearing loss 02-18-2022 Chronic Other lower respiratory disease (20 sources) Dyspnea; Translations: [Dyspnea, unspecified] 06-20-2020 Episodic Other male genital disorders (15 sources) Impotence; Translations: [Erectile dysfunction] 10-25-2018 Chronic Other skin disorders (15 sources) Ingrowing toenail 01-23-2020 Episodic Jessica-; endo-; and myocarditis; cardiomyopathy (except that caused by tuberculosis or sexually transmitted disease) (11 sources) Cardiomyopathy; Translations: [Cardiomyopathy, unspecified] Onset: 10-31-2024 07-27-2024 Chronic Residual codes; unclassified (15 sources) Edema of lower leg 06-20-2020 Episodic Residual codes; unclassified (3 sources) Other specified postprocedural states; Translations: [Personal history of surgery to heart and great vessels, presenting hazards to health] Onset: 05-11-2019 Episodic Skin and subcutaneous tissue infections (3 sources) Cellulitis 10-26-2018 Episodic Sprains and strains (2 sources) Strain of long head of biceps; Translations: [Strain of muscle, fascia and tendon of long head of biceps, right arm, subsequent encounter] Onset: 12-15-2024 Episodic Superficial injury; contusion (1 source) Contusion of right shoulder; Translations: [Contusion of right shoulder, subsequent encounter] Episodic Unclassified (5 sources) choly( Confirmed ) Onset: 03-29-1988 03-29-2010 Unclassified (5 sources) fracture leg( Confirmed ) Onset: 03-29-2010 03-29-2010 Unclassified (5 sources) mitral valve replaced( Confirmed ) Onset: 03-29-2005 03-29-2010 Unclassified (1 source) Longstanding persistent atrial fibrillation; Translations: [Longstanding persistent atrial fibrillation] Onset: 10-31-2024 Past or Other Problems Problem Classification Problem Date Documented Date Episodic/Chronic Complication of device; implant or graft (6 sources) Prosthetic aortic valve stenosis; Translations: [Stenosis of other cardiac prosthetic devices, implants and grafts, initial encounter] Onset: 02-21-2024 03-06-2020 Episodic Other screening for suspected conditions (not mental disorders or infectious disease) (2 sources) Other specified abnormal findings of blood chemistry; Translations: [Other specified abnormal findings of blood chemistry] Onset: 05-02-2024 Episodic Residual codes; unclassified (9 sources) History of repair of mitral valve; Translations: [Other specified postprocedural states] Onset: 05-11-2019 12-22-2021 Episodic Comment on above: MVR with a 29 mm Dur an band 05/11/19 Residual codes; unclassified (5 sources) History of repair of aortic root; Translations: [Other specified postprocedural states] Onset: 05-11-2019 12-22-2021 Episodic Comment on above: Focal Aortic Arch Di ssection: hemiarch replacement w/ 30 mm Gelweave Valsava graft 05/11/2019 Results Test Name Value Interpretation Reference Range Facility MRSA/SAID NASAL SCREENon MRSA+SAID SCRN Reason for Exam: PRE-OP MRSA MRSA Negative S. AUREUS S. aureus Negative Normal [facility] Comment on above: Performed By: #### L 500.2500, M100.651, L100.0100 ####[facility] [address] [place], [address] Basic Metabolic Profile (BMP )on 11-29-2024 BUN/CRE 18.9 RATIO Normal - [facility] Comment on above: Performed By: #### L 500.2500, M100.651, L100.0100 #### [facility] [address] [place], [address] Calcium [Mass/Vol] 9.4 mg/dL Normal 7.6-11.0 [facility] Comment on above: Performed By: #### L 500.2500, M100.651, L100.0100 #### [facility] [address] [place], [address] Chloride [Moles/Vol] 106 mmol/L Normal 98-108 [facility] Comment on above: Performed By: #### L 500.2500, M100.651, L100.0100 #### [facility] [address] [place], [address] CO2 [Moles/Vol] 21.8 mmol/L Normal 21.0-32.0 [facility] Comment on above: Performed By: #### L 500.2500, M100.651, L100.0100 #### [facility] [address] [place], [address] Creatinine [Mass/Vol] 1.57 mg/dL High 0.70-1.20 [facility] Comment on above: Performed By: #### L 500.2500, M100.651, L100.0100 #### [facility] [address] [place], [address] GAP 13 Normal 5-15 [facility] Comment on above: Performed By: #### L 500.2500, M100.651, L100.0100 #### [facility] [address] [place], [address] GFR/1.73 sq M.predicted among non-blacks MDRD (S/P/Bld) [Vol rate/Area] 43 mL/min/{1.73_m2} Low >60 [facility] Comment on above: Result Comment: mL/m in/1.73m2 CKD-EPI Creatinine Equation (2020) Performed By: #### L 500.2500, M100.651, L100.0100 #### [facility] [address] [place], [address] Glucose [Mass/Vol] 113 mg/dL High 70-99 [facility] Comment on above: Performed By: #### L 500.2500, M100.651, L100.0100 #### [facility] [address] [place], [address] Potassium [Moles/Vol] 4.5 mmol/L Normal 3.3-5.1 [facility] Comment on above: Result Comment: Hemo lysis present, Results??could be affected. ?? Performed By: #### L 500.2500, M100.651, L100.0100 #### [facility] [address] [place], [address] Sodium [Moles/Vol] 140 mmol/L Normal 133-145 [facility] Comment on above: Performed By: #### L 500.2500, M100.651, L100.0100 #### [facility] [address] [place], [address] Urea nitrogen [Mass/Vol] 30 mg/dL High 4-19 [facility] Comment on above: Performed By: #### L 500.2500, M100.651, L100.0100 #### [facility] [address] [place], [address] CBC W/Diff, Automatedon 09-0 -2024 Absolute Lymph 1.43 X10 3/uL Normal 0.83-4.51 [facility] Comment on above: Performed By: #### L 500.2500, M100.651, L100.0100 #### [facility] [address] [place], [address] Absolute Neut 4.4 X10 3/uL Normal 2.0-7.7 [facility] Comment on above: Performed By: #### L 500.2500, M100.651, L100.0100 #### [facility] [address] [place], [address] Basophils/100 WBC (Bld) 1.1 % High 0-1 [facility] Comment on above: Performed By: #### L 500.2500, M100.651, L100.0100 #### [facility] [address] [place], [address] Eosinophils/100 WBC (Bld) 4.6 % Normal 0-5 [facility] Comment on above: Performed By: #### L 500.2500, M100.651, L100.0100 #### [facility] [address] [place], [address] Erythrocyte distribution width (RBC) [Ratio] 13.3 % Normal 11.6-14.6 [facility] Comment on above: Performed By: #### L 500.2500, M100.651, L100.0100 #### [facility] [address] [place], [address] Hematocrit (Bld) [Volume fraction] 41.3 % Normal 40-54 [facility] Comment on above: Performed By: #### L 500.2500, M100.651, L100.0100 #### [facility] [address] [place], [address] Hemoglobin (Bld) [Mass/Vol] 13.8 g/dL Normal 13.0-16.5 [facility] Comment on above: Performed By: #### L 500.2500, M100.651, L100.0100 #### [facility] [address] [place], [address] IG% 0.600 Normal 0.0-0.9 [facility] Comment on above: Result Comment: IG% - Immature Granulocytes (promyelocytes, myelocytes and metamyelocytes) > 1% indicates that a LEFT SHIFT is Present. Performed By: #### L 500.2500, M100.651, L100.0100 #### [facility] [address] [place], [address] Lymphocytes/100 WBC (Bld) 19.8 % Normal 19-41 [facility] Comment on above: Performed By: #### L 500.2500, M100.651, L100.0100 #### [facility] [address] [place], [address] MCH (RBC) [Entitic mass] 32.8 pg High 27.0-32.0 [facility] Comment on above: Performed By: #### L 500.2500, M100.651, L100.0100 #### [facility] [address] [place], [address] MCHC (RBC) [Mass/Vol] 33.4 g/dL Normal 32-36 [facility] Comment on above: Performed By: #### L 500.2500, M100.651, L100.0100 #### [facility] [address] [place], [address] MCV (RBC) [Entitic vol] 98.1 fL High 80-94 [facility] Comment on above: Performed By: #### L 500.2500, M100.651, L100.0100 #### [facility] [address] [place], [address] Monocytes/100 WBC (Bld) 13.2 % High 0-10 [facility] Comment on above: Performed By: #### L 500.2500, M100.651, L100.0100 #### [facility] [address] [place], [address] Neutrophils/100 WBC (Bld) 60.7 % Normal 47-70 [facility] Comment on above: Performed By: #### L 500.2500, M100.651, L100.0100 #### [facility] [address] [place], [address] Nucleated RBC (Bld) [#/Vol] 0 10*3/uL Normal 0-5 [facility] Comment on above: Performed By: #### L 500.2500, M100.651, L100.0100 #### [facility] [address] [place], [address] Platelet mean volume (Bld) [Entitic vol] 10.8 fL Normal 6.2-12.0 [facility] Comment on above: Performed By: #### L 500.2500, M100.651, L100.0100 #### [facility] [address] [place], [address] Platelets (Bld) [#/Vol] 111 10*3/uL Low 150-450 [facility] Comment on above: Performed By: #### L 500.2500, M100.651, L100.0100 #### [facility] [address] [place], [address] RBC (Bld) [#/Vol] 4.21 10*6/uL Low 4.6-6.2 [facility] Comment on above: Performed By: #### L 500.2500, M100.651, L100.0100 #### [facility] [address] [place], [address] RDW SD 48.7 fl High 35.1-43.9 [facility] Comment on above: Performed By: #### L 500.2500, M100.651, L100.0100 #### [facility] [address] [place], [address] WBC (Bld) [#/Vol] 7.2 10*3/uL Normal 4.4-11.0 [facility] Comment on above: Performed By: #### L 500.2500, M100.651, L100.0100 #### [facility] [address] [place], [address] Extremity Upper without Cont raon 11-29-2024 Extremity Upper without Contra [facility] Imaging Services [address] [place] [address] Extremity Upper without Contra MR#: [id number] Acct: [id number] Name: SRIDHAR GUZMAN Rep #: [id number] : 1940 M 84 From: Geoffrey Mckoy MD PCP: Dr. Hansel Solis DO Status: REG CLI Study: Extremity Upper without Contra Date of Exam: 0 11/29/24 Exam# [id number] Ordering Dr: Jose Barry DO PROCEDURE: EXTREMITY UPPER WITHOUT CONTRA 11/29/2024 REASON FOR EXAM: SHOULDER TRAUMA/SPRAIN/TENDON ITIS TECHNIQUE: Procedure Code: CTEUWO Modality: CT Procedure: EXTREMITY UPPER WITHOUT CONTRA Coronal and Sagittal reconstruction series were provided. One or more dose reduction techniques were used (e.g., Automated exposure control, adjustment of the mA and/or kV according to patient size, use of iterative reconstruction technique. RADIATION DOSE SUMMARY: DLP: 604 mGycm COMPARISON: None FINDINGS: Bones: There is no fracture or dislocation identified. 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 There is no visible loose body. Joints: The AC joint is aligned without evidence of separation. There is a type 3 acromion with impingement configuration. 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 Soft Tissues: Surgical clips are present in the right axilla. There is a 0.3 cm solid peripheral nodule in the right upper lung, image 29/94. The ascending aorta is partly visible and appears enlarged to at least 4.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 There is a type 3 acromion with impingement configuration. 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 There is a 0.3 cm solid peripheral nodule in the right upper lung, image 29/94. Chest CT correlation is recommended. The ascending aorta is partly visible and appears enlarged to at least 4.7 cm. Follow-up is recommended. Reading Location: [place] CC: Dr. Jose Barry DO; Dr. Hansel Solis DO Hydraulic Press Tender: Signed Normal [facility] Magnesiumon 11-29-2024 Magnesium [Mass/Vol] 2.0 mg/dL Normal 1.5-2.2 [facility] Comment on above: Performed By: #### L 501.5200 #### [facility] [address] [facility] [place], [address] MR/PAT.ANEon 11-23-2024 MR/PAT.[facility] Medical Records Department [address] [place] [address] PAT - Anesthesia 11/23/242030 MR#: [id number] Acct: [id number] Name: SRIDHAR GUZMAN Rep #: [id number] : 1940 84 From: Rasheed Hernandez MD PCP: Dr. Hansel Solis DO Status:PRE [facility] Y Race: C Location: [facility] Pre-Assessment Diagnosis/Proposed Procedure Planned Operative Procedure(s): (R) Total Shoulder Replacement, Reverse Anesthesia History Anesthesia History - social service assistant: Anesthesia History - social service assistant Hx Hospitalization No 11/22/24 09:31 Any Problems With Anesthesia No 11/22/24 09:31 Cholinesterase deficiency No 11/22/24 09:31 You/Your Family Experience No 11/22/24 09:31 fever (hyperthermia) with Relationship Recent Exposure to Contagious Disease Does patient have nerve No 11/22/24 09:31 stimulator Patient instructed to have device shut off --Does patient have Pacemaker or ICD? When Was Last Pacemaker Check QUESTION #4 FULL TEXT: You/Your Family Experience fever (hyperthermia) with Anesthesia Last Oral Intake Last Oral intake: Last Oral Intake NPO since Meds taken in AM with sips of water? Meds patient instructed to take am of surgery PONV PONV - social service assistant: PONV - social service assistant Female No 11/22/24 09:31 HX of Motion Sickness No 11/22/24 09:31 HX of N/V After Surgery No 11/22/24 09:31 Non-Smoker Yes 11/22/24 09:31 Duration of Surgery greater Yes 11/22/24 09:31 than 60 minutes Number of Risk Factors 2 11/22/24 09:31 PONV Score Moderate Risk 11/22/24 09:31 Height Weight Height Weight: Anesthesia: Height Weight Height 5 ft 11 in 10/31/24 09:13 Respiratory Assessment Respiratory Assessment - social service assistant: Respiratory Tract Infection Hx - social service assistant Hx Respiratory Tract Infection No 11/22/24 09:31 STOP Sleep Apnea STOP Sleep Apnea - social service assistant: STOP Sleep Apnea - social service assistant Hx Hypertension Yes: CONTROLLED ON MED 11/22/24 09:31 Hx Sleep Apnea No 11/22/24 09:31 CPAP BIPAP Do you snore loudly (louder No 11/22/24 09:31 than talking or can be heard Do you often feel tired/ No 11/22/24 09:31 fatigued/ sleepy during daytime? Has anyone observed you stop No 11/22/24 09:31 breathing during sleep? STOP Results Negative 11/22/24 09:31 QUESTION #5 FULL TEXT : Do you snore loudly (louder than talking or can be heard through closed doors)? 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 Specify any problems Hx of Preganancy in last 3 N/A 11/22/24 09:31 Months Nurse Filling Out Transfusion VCHRISTIN 11/22/24 09:31 Questions: Date: 11/22/24 11/22/24 09:31 Time: 09:32 11/22/24 09:31 Patient unable to answer at this time (ie. confused, unrespo /Reproducti on History /Reproducti ve History - social service assistant: /Reproducti ve Hx- social service assistant Hx Now No 11/22/24 09:31 Gestational Age (in weeks): EDC: Hx Hx Para Hx Section SAB No 11/22/24 09:31 [facility] Medical History (Updated 11/22/24 @ 09:30 by Clarissa Fajardo) Wears glasses Arthritis Kidney stones High cholesterol Injury of head and neck Gastric reflux Non-smoker History of pain when walking History of edema History of echocardiogram History of stress test Cardiology follow-up encounter Hypertension History of skin cancer Cardiomyopathy Decreased left ventricular function Left ventricular diastolic dysfunction Longstanding persistent atrial fibrillation Chronic combined systolic and diastolic CHF (congestive heart failure) Sick sinus syndrome Thrombocytopenia Atrial fibrillation and flutter (11/2019) Essential (primary) hypertension Petechiae Headache Poor historian 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) Right bundle branch block (RBBB) Prosthetic aortic valve stenosis Junctional rhythm Postoperative atrial (more content not included)... Normal [facility] Cardiology Visit Reporton Cardiology Visit Report [facility] [address] [place] [address] OFFICE VISIT Date of Service: 10/31/24 MR#: [id number] Acct: [id number] Name: SRIDHAR GUZMAN Rep #: [id number] : 1940 Provider: RONDA Taylor Age/Sex: 84/M Location: [facility] Status: Signed HPI HPI History of Present Illness Details: Sridhar Guzman is an 84 year-old man with a history of coronary artery disease with history of bypass surgery. He had an ESTRELLA to the LAD. 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 In September 2018 he underwent a heart catheterization which demonstrated an ejection fraction of 60%. Tortuous aorta with possible aneurysm, left main mild calcification, LAD occluded, diagonal mid mild luminal irregularities, circumflex apparent circumflex with RCA artery at 80% mid segment stenosis, mid RCA less than 30% stenosis, ESTRELLA to LAD patent. Prosthetic valve with stenosis with mean gradient of 48 mmHg by echocardiogram. An aortic root aneurysm was noted and he was referred to the [facility]. In Apr, He underwent axillary cannulation with a 10 mm Dacron side graft, redo median sternotomy, aortic valve replacement and root replacement with a 27 mm Enoc Abel valve, a 30 mm Gelweave Valsalva valve, reimplantation of the coronary arteries, mitral valve repair with a 29 mm Sadie band, and chelsy-arch replacement with a 30 mm Gelweave graft. Postoperatively he did well with an episode of atrial fibrillation and junctional rhythm and some kidney injury. In June of 2019 he presented to the hospital with headache and a supratherapeutic INR of 7.5. 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 He was transferred to the [facility] and was managed conservatively with INR reversal and the hematoma was noted to be stable on repeat CT. Cardiology was consulted and made the decision to continue holding aspirin and Coumadin. He was subsequently discharged in mid June. At the time of his discharge it appears that his EKG showed atrial flutter and there was a question about the need for Eliquis and or a ROCCO cardioversion. He was cleared for a cardioversion by both neurology and hematology. He was started on Eliquis. However day of cardioversion he was noted to have a heart rate of 48. He did have a Holter monitor done which demonstrated 48-hour period of atrial fibrillation/flutter . Average heart rate 53 bpm, minimum heart rate 34 bpm, maximum heart rate 122 bpm. Longest R to R was 1.9 seconds. Because of his low heart rate it was recommended that he undergo a Micra pacemaker placement. This was done in April 2020. Patient had a pharmacologic stress test in February 2024 which was negative for ischemia. Echocardiogram did demonstrate a decreased in his ejection fraction to 40%. Valve was stable. He was started on Spirolactone, he notes he did not tolerate this d/t GI issues. He did not start the jardiance d/t cost. We attempted to start Entresto, this was also not started d/t cost. Sometimes he feels that he is more SOB than he should be. This is not new. He is very [place], does have some memory issues and lives by himself. He is considering surgery on his shoulder. We did clear him for surgery. Preliminary EKG today demonstrates Afib with PVCs. Intake Vital Signs 07/27/24 08:47 10/31/24 09:13 Height 5 ft 11 in 5 ft 11 in Weight: 181 lb 178 lb BMI 25.2 24.8 BP 137/91 H 133/87 H Blood Pressure Location Lt brachial Lt brachial Position Sitting Sitting Respiration 20 H 18 Pulse 65 61 Pulse Source NIBP NIBP Intake Visit Reasons: 3 M FU Real Estate Internship Required: No Is patient in pain?: No Allergies Penicillins Allergy (Intermediate, Verified 10/31/24 09:17) rash sulfamethoxazole (From Bactrim) Allergy (Intermediate, Verified 10/31/24 09:17) rash trimethoprim (From Bactrim) Allergy (Intermediate, Verified 10/31/24 09:17) rash animal dander Allergy (Unknown, Verified 10/31/24 09:17) Ears plug up grass pollen Allergy (Unknown, Verified 10/31/24 09:17) plugs ears up lidocaine Allergy (Unknown, Verified 10/31/24 09:17) unknown oxycodone (From Percocet) Adverse Reaction (Intermediate, Verified 10/31/24 09:17) GI upset spironolactone Adverse Reaction (Intermediate, Verified 10/31/24 09:17) Diarrhea egg Adverse Reaction (Verified 10/31/24 09:17) Ears plug up, can't hear Medications ???Medication ???Instructions ???Recorded ???Confirmed ???Type nitroglycerin 0.4 mg sublingual 0.4 mg sublingual Q5-15M PRN chest 03/08/23 10/31/24 Rx tablet pain #25 tabs amlodipine 5 mg tablet 5 mg PO DAILY #90 tabs 02/21/24 Rx apixaban 5 mg tablet (Eliquis) 5 mg PO BID #60 tabs 02/21/24 08 (more content not included)... Normal [facility] .Auto Diffon 09-07-2024 Basophil, Absolute 0.1 10 3/mcL Normal 0.0-0.3 [facility] Comment on above: Performed By: #### G FR, BMP, ADIFF, ANEU, CBC #### [address] [address] Basophils/100 WBC (Bld) 1.2 % Normal 0.0-2.[address] [facility] Comment on above: Performed By: #### G FR, BMP, ADIFF, ANEU, CBC #### [address] [address] Eosinophil, Absolute 0.2 10 3/mcL Normal 0.0-0.7 [facility] Comment on above: Performed By: #### G FR, BMP, ADIFF, ANEU, CBC #### [address] [address] Eosinophils/100 WBC (Bld) 2.9 % Normal 0.0-6.[address] [facility] Comment on above: Performed By: #### G FR, BMP, ADIFF, ANEU, CBC #### [address] [address] Lymphocyte, Absolute 1.4 10 3/mcL Normal 0.9-4.3 [facility] Comment on above: Performed By: #### G FR, BMP, ADIFF, ANEU, CBC #### [address] [address] Lymphocytes/100 WBC (Bld) 20.9 % Normal 20.0-40.[address] [facility] Comment on above: Performed By: #### G FR, BMP, ADIFF, ANEU, CBC #### [address] [address] Monocyte, Absolute 0.8 10 3/mcL Normal 0.1-1.4 [facility] Comment on above: Performed By: #### G FR, BMP, ADIFF, ANEU, CBC #### [address] [address] Monocytes/100 WBC (Bld) 12.1 % Normal 2.0-13.[address] [facility] Comment on above: Performed By: #### G FR, BMP, ADIFF, ANEU, CBC #### [address] [address] Neutrophils/100 WBC (Bld) 62.9 % Normal 50.0-75.[address] [facility] Comment on above: Performed By: #### G FR, BMP, ADIFF, ANEU, CBC #### [address] [address] .GFRon 09-07-2024 Estimated Glomerular Filtration Rate 53 ml/min/1.73sqm Normal [facility] Comment on above: Result Comment: Stages of Chronic Kidney Disease (CKD) Stage Description eGFR(ml/min/1.73 sq.m.) CKD 1 Normal kidney function or >=90 normal kindney function with possible kidney damage (ex. Proteinuria) CKD 2 Kidney damage with mild loss 60-89 of kidney function CKD 3a Mild to moderate loss of kidney 45-59 function CKD 3b Moderate to severe loss of 30-44 of kindey function CKD 4 Severe loss of kidney function 15-29 CKD 5 Kidney failure <15 Note: (go live 2024) the eGFR calculation was updated to the 2020 CKD-EPI creatinine equation without a race factor to calculate the eGFR results. Performed By: #### G FR, BMP, ADIFF, ANEU, CBC #### [address] [address] .NEUABSon 09-07-2024 Neutrophil, Absolute 4.1 10 3/mcL Normal 2.3-8.1 [facility] Comment on above: Performed By: #### G FR, BMP, ADIFF, ANEU, CBC #### [address] [address] BMPon 09-07-2024 BUN/Creatinine Ratio 12 ratio Normal 7-27 [facility] Comment on above: Performed By: #### G FR, BMP, ADIFF, ANEU, CBC #### [address] [address] Calcium [Mass/Vol] 9.2 mg/dL Normal 8.4-10.2 [facility] Comment on above: Performed By: #### G FR, BMP, ADIFF, ANEU, CBC #### [address] [address] Chloride [Moles/Vol] 106 mmol/L Normal 98-107 [facility] Comment on above: Performed By: #### G FR, BMP, ADIFF, ANEU, CBC #### [address] [address] CO2 [Moles/Vol] 26 mmol/L Normal 23-[address] [facility] Comment on above: Performed By: #### G FR, BMP, ADIFF, ANEU, CBC #### [address] [address] Creatinine [Mass/Vol] 1.32 mg/dL High 0.67-1.17 [facility] Comment on above: Performed By: #### G FR, BMP, ADIFF, ANEU, CBC #### [place] [address] Electrolyte Balance 10.0 mEq/L Normal 4.0-15.0 [facility] Comment on above: Performed By: #### G FR, BMP, ADIFF, ANEU, CBC #### [place] [address] Glucose [Mass/Vol] 97 mg/dL Normal 83-110 [facility] Comment on above: Performed By: #### G FR, BMP, ADIFF, ANEU, CBC #### [place] [address] Potassium [Moles/Vol] 4.1 mmol/L Normal 3.5-5.1 [facility] Comment on above: Performed By: #### G FR, BMP, ADIFF, ANEU, CBC #### [place] [address] Sodium [Moles/Vol] 142 mmol/L Normal 136-145 [facility] Comment on above: Performed By: #### G FR, BMP, ADIFF, ANEU, CBC #### [place] [address] Urea nitrogen [Mass/Vol] 16 mg/dL Normal 7-[address] [facility] Comment on above: Performed By: #### G FR, BMP, ADIFF, ANEU, CBC #### [place] [address] CBCon 09-07-2024 Erythrocyte distribution width (RBC) [Ratio] 14.4 % Normal 11.5-15.[address] [facility] Comment on above: Performed By: #### G FR, BMP, ADIFF, ANEU, CBC #### [address] [address] Hematocrit (Bld) [Volume fraction] 42.8 % Normal 40.0-52.[address] [facility] Comment on above: Performed By: #### G FR, BMP, ADIFF, ANEU, CBC #### [address] [address] Hgb 14.7 G/dL Normal 13.0-17.[address] [facility] Comment on above: Performed By: #### G FR, BMP, ADIFF, ANEU, CBC #### [address] [address] MCH (RBC) [Entitic mass] 33.5 pg High 27.0-33.[address] [facility] Comment on above: Performed By: #### G FR, BMP, ADIFF, ANEU, CBC #### [address] [address] MCHC 34.3 G/dL Normal 32.0-36.[address] [facility] Comment on above: Performed By: #### G FR, BMP, ADIFF, ANEU, CBC #### [address] [address] MCV (RBC) [Entitic vol] 97.6 fL Normal 81.0-100.[address] [facility] Comment on above: Performed By: #### G FR, BMP, ADIFF, ANEU, CBC #### [address] [address] Platelet 127 10 3/mcL Low 150-[address] [facility] Comment on above: Performed By: #### G FR, BMP, ADIFF, ANEU, CBC #### [address] [address] Platelet mean volume (Bld) [Entitic vol] 8.3 fL Normal 6.4-10.[address] [facility] Comment on above: Performed By: #### G FR, BMP, ADIFF, ANEU, CBC #### [place] [address] [place], [place] [address] RBC 4.39 10 6/mcL Low 4.50-6.[address] [facility] Comment on above: Performed By: #### G FR, BMP, ADIFF, ANEU, CBC #### [place] [address] [place], [place] [address] WBC 6.5 10 3/mcL Normal 4.5-10.[address] [facility] Comment on above: Performed By: #### G FR, BMP, ADIFF, ANEU, CBC #### [place] [address] [place], [place] [address] LABORATORYOrdered By: SYSTEM SYSTEM on 09-07-2024 Basophils (Bld) [#/Vol] 0.1 103/mcL Normal 0.0 - 0.3 10^3/mcL AO Workflow SS Basophils/100 WBC (Bld) 1.2 % Normal 0.0 - 2.5 % AO Workflow SS Calcium [Mass/Vol] 9.2 mg/dL Normal 8.4 - 10. 2 mg/dL AO ADM SS Chloride [Moles/Vol] 106 mmol/L Normal 98 - 10 7 mmol/L AO ADM SS CO2 [Moles/Vol] 26 mmol/L Normal 23 - 31 mmol/L AO ADM SS Creatinine [Mass/Vol] 1.32 mg/dL High 0.67 - 1.17 mg/dL AO ADM SS Electrolyte Balance 10.0 mEq/L Normal 4.0 - 15 .0 mEq/L AO ADM SS Eosinophil, Absolute 0.2 103/mcL Normal 0.0 - 0 .7 10^3/mcL AO Workflow SS Eosinophils/100 WBC (Bld) 2.9 % Normal 0.0 - 6.0 % AO Workflow SS Erythrocyte distribution width (RBC) [Ratio] 14.4 % Normal 11.5 - 15.5 % AO Workflow SS Estimated Glomerular Filtration Rate 53 ml/min/1.73sqm Invalid Interpretation Code AO Chemistry S Comment on above: Interpretive Data: Stages of Chronic Kidney Disease (CKD) Stage Description eGFR(ml/min/1.73 sq.m.) CKD 1 Normal kidney function or >=90 normal kindney function with possible kidney damage (ex. Proteinuria) CKD 2 Kidney damage with mild loss 60-89 of kidney function CKD 3a Mild to moderate loss of kidney 45-59 function CKD 3b Moderate to severe loss of 30-44 of kindey function CKD 4 Severe loss of kidney function 15-29 CKD 5 Kidney failure <15 Note: (go live 2024) the eGFR calculation was updated to the 2020 CKD-EPI creatinine equation without a race factor to calculate the eGFR results. Glucose [Mass/Vol] 97 mg/dL Normal 83 - 110 mg/dL AO ADM SS Hematocrit (Bld) [Volume fraction] 42.8 % Normal 40.0 - 52.0 % AO Workflow SS Hemoglobin (Bld) [Mass/Vol] 14.7 G/dL Normal 13.0 - 17.5 G/dL AO Workflow SS Lymphocytes (Bld) [#/Vol] 1.4 103/mcL Normal 0.9 - 4.3 10^3/mcL AO Workflow SS Lymphocytes/100 WBC (Bld) 20.9 % Normal 20.0 - 40.0 % AO Workflow SS MCH (RBC) [Entitic mass] 33.5 pg High 27.0 - 33.0 pg AO Workflow SS MCHC 34.3 G/dL Normal 32.0 - 36.0 G/dL AO Workflow SS MCV (RBC) [Entitic vol] 97.6 fL Normal 81.0 - 100.0 fL AO Workflow SS Monocytes (Bld) [#/Vol] 0.8 103/mcL Normal 0.1 - 1.4 10^3/mcL AO Workflow SS Monocytes/100 WBC (Bld) 12.1 % Normal 2.0 - 13.0 % AO Workflow SS Neutrophils (Bld) [#/Vol] 4.1 103/mcL Normal 2.3 - 8.1 10^3/mcL AO Workflow SS Neutrophils/100 WBC (Bld) 62.9 % Normal 50.0 - 75.0 % AO Workflow SS Platelet mean volume (Bld) [Entitic vol] 8.3 fL Normal 6.4 - 10.5 fL AO Workflow SS Platelets (Bld) [#/Vol] 127 103/mcL Low 150 - 450 10^3/mcL AO Workflow SS Potassium [Moles/Vol] 4.1 mmol/L Normal 3.5 - 5.1 mmol/L AO ADM SS RBC (Bld) [#/Vol] 4.39 106/mcL Low 4.50 - 6.0 0 10^6/mcL AO Workflow SS Sodium [Moles/Vol] 142 mmol/L Normal 136 - 145 mmol/L AO ADM SS Urea nitrogen [Mass/Vol] 16 mg/dL Normal 7 - 18 mg/dL AO ADM SS Urea nitrogen/Creatinine [Mass ratio] 12 ratio Normal 7 - 27 ratio AO ADM SS WBC (Bld) [#/Vol] 6.5 103/mcL Normal 4.5 - 10.8 10^3/mcL AO Workflow SS Cardiology Visit Reporton Cardiology Visit Report [facility] [address] [place] [address] OFFICE VISIT Date of Service: 07/27/24 MR#: [id number] Acct: [id number] Name: SRIDHAR GUZMAN Rep #: [id number] : 1940 Provider: RONDA Taylor Age/Sex: 84/M Location: [facility] Status: Signed HPI HPI History of Present Illness Details: Sridhar Guzman is an 83-year-old man who returns for follow-up visit. He has a history of coronary artery disease with history of bypass surgery. He had an ESTRELLA to the LAD. 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 In September 2018 he underwent a heart catheterization which demonstrated an ejection fraction of 60%. Tortuous aorta with possible aneurysm, left main mild calcification, LAD occluded, diagonal mid mild luminal irregularities, circumflex apparent circumflex with RCA artery at 80% mid segment stenosis, mid RCA less than 30% stenosis, ESTRELLA to LAD patent. Prosthetic valve with stenosis with mean gradient of 48 mmHg by echocardiogram. An aortic root aneurysm was noted and he was referred to the [facility]. In Apr, He underwent axillary cannulation with a 10 mm Dacron side graft, redo median sternotomy, aortic valve replacement and root replacement with a 27 mm Enoc Abel valve, a 30 mm Gelweave Valsalva valve, reimplantation of the coronary arteries, mitral valve repair with a 29 mm Sadie band, and chelsy-arch replacement with a 30 mm Gelweave graft. Postoperatively he did well with an episode of atrial fibrillation and junctional rhythm and some kidney injury. In June of 2019 he presented to the hospital with headache and a supratherapeutic INR of 7.5. 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 He was transferred to the [facility] and was managed conservatively with INR reversal and the hematoma was noted to be stable on repeat CT. Cardiology was consulted and made the decision to continue holding aspirin and Coumadin. He was subsequently discharged in mid June. At the time of his discharge it appears that his EKG showed atrial flutter and there was a question about the need for Eliquis and or a ROCCO cardioversion. He was cleared for a cardioversion by both neurology and hematology. He was started on Eliquis. However day of cardioversion he was noted to have a heart rate of 48. He did have a Holter monitor done which demonstrated 48-hour period of atrial fibrillation/flutter . Average heart rate 53 bpm, minimum heart rate 34 bpm, maximum heart rate 122 bpm. Longest R to R was 1.9 seconds. Because of his low heart rate it was recommended that he undergo a Micra pacemaker placement. This was done in April 2020. Patient had a pharmacologic stress test in February 2024 which was negative for ischemia. Echocardiogram did demonstrate a decreased in his ejection fraction to 40%. Valve was stable. He was started on Spirolactone, he notes he did not tolerate this d/t GI issues. He did not start the jardiance d/t cost. Sometimes he feels that he is more SOB than he should be. He is very [place], does have some memory issues and lives by himself. He is considering surgery on his shoulder. Intake Vital Signs 02/21/24 08:51 07/27/24 08:47 Height 5 ft 11 in 5 ft 11 in Weight: 181 lb BMI 25.2 BP 137/91 H Blood Pressure Location Lt brachial Position Sitting Respiration 20 H Pulse 65 Pulse Source NIBP Intake Visit Reasons: 6 M FU PPM f/u @ 8:30am [employer] Required: No Is patient in pain?: No Allergies Penicillins Allergy (Intermediate, Verified 07/27/24 08:51) rash sulfamethoxazole (From Bactrim) Allergy (Intermediate, Verified 07/27/24 08:51) rash trimethoprim (From Bactrim) Allergy (Intermediate, Verified 07/27/24 08:51) rash animal dander Allergy (Unknown, Verified 07/27/24 08:51) Ears plug up grass pollen Allergy (Unknown, Verified 07/27/24 08:51) plugs ears up lidocaine Allergy (Unknown, Verified 07/27/24 08:51) unknown oxycodone (From Percocet) Adverse Reaction (Intermediate, Verified 07/27/24 08:51) GI upset spironolactone Adverse Reaction (Intermediate, Verified 07/27/24 08:51) Diarrhea egg Adverse Reaction (Verified 07/27/24 08:51) Ears plug up, can't hear Medications ???Medication ???Instructions ???Recorded ???Confirmed ???Type nitroglycerin 0.4 mg sublingual 0.4 mg sublingual Q5-15M PRN chest 03/08/23 07/27/24 Rx tablet pain #25 tabs atorvastatin 10 mg tablet 10 mg PO DAILY #90 tabs 09/02/23 0 07/27/24 Rx amlodipine 5 mg tablet 5 mg PO DAILY #90 tabs 02/21/24 Rx apixaban 5 mg tablet (Eliquis) 5 mg PO BID #60 tabs 02/21/2404/22 Rx atenolol 25 mg tablet 25 mg PO DAILY #90 tabs 02/21/24 0 07/27/24 Rx cli (more content not included)... Normal [facility] Pacemaker Checkon 07-27-2024 Pacemaker Check [facility] [address] [place] [address]. [address] [place] [address] Pacemaker Check Date of Service: 07/27/24 1636 MR#: [id number] Acct: [id number] Name: SRIDHAR GUZMAN Rep #: [id number] : 1940 From: Olimpia Okeefe Age/Sex: 84/M [place] [facility] [place]: Signed Billing Codes Leadless Device Check: 79678 PM Dev Prog Eval, Single Assessment and Plan Assessment and Plan (1) Sick sinus syndrome: Status: Chronic (2) Cardiomyopathy: Status: Acute (3) Longstanding persistent atrial fibrillation: Status: Chronic (4) History of placement of leadless cardiac pacemaker: Status: Chronic Comment: - insertion of VVI leadless pacemaker (Micra) 05/09/2020 07/27/24 1637 Date Olimpia Potter Signature: Date (if applicable) CC: Normal [facility] FT4on 05-02-2024 Free T4 [Mass/Vol] 1.02 ng/dL Normal 0.76-1.46 [facility] Comment on above: Performed By: #### F T4, TSH #### [place] [address] LABORATORYOrdered By: SYSTEM SYSTEM on 05-02-2024 Free T4 [Mass/Vol] 1.02 ng/dL Normal 0.76 - 1. 46 ng/dL AO ADM SS TSH Qn 2.96 m[IU]/L Normal 0.36 - 3.74 mcIU/mL AO ADM SS TSHon 05-02-2024 TSH Qn 2.96 m[IU]/L Normal 0.36-3.[address] [facility] Comment on above: Performed By: #### F T4, TSH #### [place] [address] Basic Metabolic Profile (BMP )on 03-27-2024 BUN/CRE 15.1 RATIO Normal 10-20 [facility] Comment on above: Performed By: #### L 500.2500 ####[facility] [address] [place], [place], [id number] CA,Total 9.4 mg/dL Normal 8.5-10.1 [facility] Comment on above: Performed By: #### L 500.2500 ####[facility] [address] [place], [address] Chloride [Moles/Vol] 107 mmol/L Normal 98-107 [facility] Comment on above: Performed By: #### L 500.2500 ####[facility] [address] [place], [address] CO2 [Moles/Vol] 25.0 mmol/L Normal 21.0-32.0 [facility] Comment on above: Performed By: #### L 500.2500 ####[facility] [address] [place], [address] Creatinine [Mass/Vol] 1.26 mg/dL Normal 0.70-1.30 [facility] Comment on above: Result Comment: The validity of the calculated GFR GFRAA in patients over 70 years has not been determined. Clinical correlation is essential. Performed By: #### L 500.2500 ####[facility] [address] [place], [address] EST GFR - AA 70 mL/min Normal >60 [facility] Comment on above: Result Comment: Afri can Gabonese GFR Calc Performed By: #### L 500.2500 ####[facility] [address] [place], [address] GAP 6 Normal 5-15 [facility] Comment on above: Performed By: #### L 500.2500 ####[facility] [address] [place], [address] GFR/1.73 sq M.predicted among non-blacks MDRD (S/P/Bld) [Vol rate/Area] 58 mL/min/{1.73_m2} Low >60 [facility] Comment on above: Result Comment: Non- GFR Calc Performed By: #### L 500.2500 ####[facility] [address] [place], [address] Glucose [Mass/Vol] 95 mg/dL Normal 74-106 [facility] Comment on above: Performed By: #### L 500.2500 ####[facility] [address] [place], [address] Potassium [Moles/Vol] 4.4 mmol/L Normal 3.5-5.1 [facility] Comment on above: Performed By: #### L 500.2500 ####[facility] [address] [place], [address] Sodium [Moles/Vol] 138 mmol/L Normal 136-145 [facility] Comment on above: Performed By: #### L 500.2500 ####[facility] [address] [place], [address] Urea nitrogen [Mass/Vol] 19 mg/dL High 7-18 [facility] Comment on above: Performed By: #### L 500.2500 ####[facility] [address] [place], [address] Echo Complete W/ Contraston 03-15-2024 Echo Complete W/ Contrast [facility] [address] [place] [address] Echo Complete W/ Contrast 03/15/24 0943 MR#: [id number] Acct: [id number] Name: SRIDHAR GUZMAN Rep #: [id number] : 1940 83 From: Pastor Porras MD Attending Dr: RONDA Erazo Status: REG CLI Ordering Dr: Rohini Ascencio Date: 02/26 11/19 Location: [facility] Sex: M C Admitted: Reason For Study: MURMUR Procedure This was a 2D Doppler, Color Flow transthoracic echocardiogram. The study was technically difficult. Contrast injection was performed. Exam performed in department. Left Ventricle Normal LV size. The left ventricular ejection fraction is 40 %. No regional wall motion abnormalities noted. Right Ventricle Normal RV size. ICD or pacer leads identified within the right ventricle. Normal systolic function. Atria Normal left atrium. Normal right atrium. Mitral Valve Normal mitral valve. Tricuspid Valve Normal tricuspid valve. Mild (1+) tricuspid valve insufficiency. Pulmonary artery systolic pressure is 38 mmHg. Aortic Valve Peak aortic valve gradient 13 mmHg. Mean aortic valve gradient 6 mmHg. Bioprosthetic aortic valve. Pulmonic Valve Normal pulmonic valve. Great Vessels Mildly dilated aortic root. The pulmonary artery is normal size. Inferior vena cava collapse with respiration. Pericardium/Pleural No pericardial effusion. Medication 22 gauge I.V. with prn adaptor inserted into right arm. Diluted definity 2ml given slow IV push to enhance endocardial definition. MMode/2D Measurements Calculations LVIDd: 6.3 cm IVSd: 1.0 cm LVOT diam: 2.3 cm LVIDs: 4.7 cm LVPWd: 1.1 cm RVDd: 4.8 cm FS: 25.2 % LVOT area: 4.1 cm2 _ asc Aorta Diam: 3.1 cm LAV(MOD-bp): 47.7 ml LVAd ap4: 40.1 cm2 LAV(MOD-bp) Indexed: 23.5 ml/m2 LVLd ap4: 8.2 cm LAV(MOD-sp2): 46.2 ml EDV(MOD-sp4): 163.5 ml LAV(MOD-sp4): 50.4 ml EDV(sp4-el): 165.7 ml LVAs ap4: 32.5 cm2 LVLs ap4: 8.0 cm ESV(MOD-sp4): 112.6 ml ESV(sp4-el): 111.9 ml EF(MOD-sp4): 31.1 % EF(sp4-el): 32.4 % _ LVAd ap2: 32.9 cm2 SV(MOD-sp4): 50.9 ml SV(MOD-sp2): 31.9 ml LVLd ap2: 8.5 cm SI(MOD-sp4): 25.1 ml/m2 SI(MOD-sp2): 15.7 ml/m2 EDV(MOD-sp2): 105.3 ml EDV(sp2-el): 108.4 ml LVAs ap2: 25.6 cm2 LVLs ap2: 7.4 cm ESV(MOD-sp2): 73.4 ml ESV(sp2-el): 74.6 ml EF(MOD-sp2): 30.3 % _ SV(sp4-el): 53.8 ml Ao sinus diam: 3.[address] Junction: 3.1 cm _ LA dimension(2D): 4.1 cm LA A4 area: 18.5 cm2 RA A4 area: 21.3 cm2 _ TAPSE: 1.8 cm Time Measurements MV dec time: 0.18 sec Doppler Measurements Calculations MV E max kai: 147.9 cm/sec Lat Peak E' Kai: 12.7 cm/sec Med Peak E' Kai: 7.6 cm/sec E/E' lat: 11.6 E/E' med: 19.4 _ MV V2 max: 133.9 cm/sec Ao V2 max: 178.1 cm/sec LV V1 max: 83.6 cm/sec MV max P.8 mmHg Ao max P.7 mmHg LV V1 max P.8 mmHg MV V2 mean: 72.2 cm/sec Ao V2 mean: 113.9 cm/sec LV V1 mean P.3 mmHg MV mean P.7 mmHg Ao mean P.1 mmHg LV V1 mean: 51.7 cm/sec MV V2 VTI: 30.0 cm Ao V2 VTI: 34.0 cm LV V1 VTI: 16.7 cm MVA(VTI): 2.3 cm2 AV (velocity ratio): 0.49 IBETH(I,D): 2.0 cm2 IBETH(V,D): 1.9 cm2 _ SV(LVOT): 68.7 ml PA V2 max: 97.8 cm/sec TR max kai: 292.8 cm/sec TR max P.3 mmHg ECHO/Echo Complete W/ Contrast Interpretation Summary Normal LV size. The left ventricular ejection fraction is 40 %. Mean aortic valve gradient 6 mmHg. Bioprosthetic aortic valve. Contrast injection was performed. Ordering Physician: Rohini Ascencio Referring Physician: Rohini Ascencio Performed By: Liliana Almonte RDCS 03/15/24 1546 Date Pastor Porras MD CC: Dr. Hansel Solis DO; RONDA Erazo Date Dictated: 03/15/2443 Date Transcribed: 03/15/241545 Hydraulic Press Tender: Signed Normal [facility] Stress Reporton 03-15-2024 Stress Report [facility] [address] [place] [address] MR#: [id number] Acct: [id number] Name: SRIDHAR GUZMAN Rep #: [id number] : 1940 83 From: Pastor Porras MD Primary Care: Dr. Hansel Solis DO Status: REG CLI Referring Dr: Rohini Ascencio PA Sex: M C Stress Test Report Pharmacologic myocardial perfusion stress test. 83-year-old man with a history of coronary artery disease for preop cardiac evaluation Resting EKG demonstrates sinus rhythm with a rate of 64 bpm. Resting blood pressure is 150/72 mmHg. 0.4 mg of regadenoson was infused per usual protocol followed by rapid intravenous saline flush injection. Continuous EKG monitoring was performed. The maximum heart rate was 91 bpm which was 66% of max impacted heart rate the maximum workload was 1 metabolic equivalent. At rest there were no ST or T wave changes noted to suggest ischemia and at peak infusion nonspecific ST changes were noted which did not meet the criteria for ischemia. No clinical angina is noted. The final blood pressure was 140/74 mmHg. Myocardial perfusion protocol. 11.5 mCi of technetium 99m sestamibi was injected at rest. 0.4 mg of regadenoson was infused per usual protocol. At peak infusion 31.5 mCi of technetium 99m sestamibi was injected stress images were obtained stress and rest images were reconstructed and compared in the short axis vertical long and horizontal long axis. Perfusion SPECT analysis: Review of the stress images demonstrate normal uptake of tracer noted in all areas of the myocardium. Minimal reduction of the apex is noted. The resting images similar demonstrated normal uptake of tracer noted in all areas of the myocardium. Minimal reduction in the apex is noted and a small previous infarct in this area cannot be completely excluded. Conclusion: Normal pharmacologic myocardial perfusion stress test. 03/15/242049 Date Pastor Porras MD CC: Dr. Hansel Solis, DO; RONDA Erazo Date Dictated: 03/15/242047 Date Transcribed: 03/15/242047 Hydraulic Press Tender: [place] Signed Normal [facility] LABORATORYOrdered By: Braden Cavazos on 03-07-2024 Albumin DL <= 20 mg/L (U) [Mass/Vol] 1147 mcg/dL Invalid Interpretation Code AO ADM SS Albumin/Creatinine DL <= 20 mg/L (U) [Mass ratio] 7 mcg/mg Normal 0 - 30 mcg/mg AO ADM SS Creatinine (U) [Mass/Vol] 155.1 mg/dL Invalid Interpretation Code AO ADM SS MALBRon 03-07-2024 U Creatinine 155.1 mg/dL Normal [facility] Comment on above: Performed By: #### G FR, BMP, ADIFF, ANEU, CBC #### [address] [address] U Microalb 1147 mcg/dL Normal [facility] Comment on above: Performed By: #### G FR, BMP, ADIFF, ANEU, CBC #### [place] [address] [place], [place] [address] U Ratio Alb/Cre 7 mcg/mg Normal 0-[address] [facility] Comment on above: Performed By: #### G FR, BMP, ADIFF, ANEU, CBC #### [place] [address] [place], [place] [address] .Auto Diffon 02-29-2024 Basophil, Absolute 0.1 10 3/mcL Normal 0.0-0.2 [facility] Comment on above: Performed By: #### T SHR, FT4, ADIFF, BMP, VIDH, ANEU, GFR, PSA, URIC, CBC #### [address] [address] Basophils/100 WBC (Bld) 0.9 % Normal 0.0-2.[address] [facility] Comment on above: Performed By: #### T SHR, FT4, ADIFF, BMP, VIDH, ANEU, GFR, PSA, URIC, CBC #### [address] [address] Eosinophil, Absolute 0.3 10 3/mcL Normal 0.0-0.7 [facility] Comment on above: Performed By: #### T SHR, FT4, ADIFF, BMP, VIDH, ANEU, GFR, PSA, URIC, CBC #### [address] [address] Eosinophils/100 WBC (Bld) 3.3 % Normal 0.0-7.[address] [facility] Comment on above: Performed By: #### T SHR, FT4, ADIFF, BMP, VIDH, ANEU, GFR, PSA, URIC, CBC #### [address] [address] Lymphocyte, Absolute 1.3 10 3/mcL Normal 0.9-4.3 [facility] Comment on above: Performed By: #### T SHR, FT4, ADIFF, BMP, VIDH, ANEU, GFR, PSA, URIC, CBC #### [address] [address] Lymphocytes/100 WBC (Bld) 14.2 % Low 20.0-40.[address] [facility] Comment on above: Performed By: #### T SHR, FT4, ADIFF, BMP, VIDH, ANEU, GFR, PSA, URIC, CBC #### [address] [address] Monocyte, Absolute 1.0 10 3/mcL Normal 0.1-1.4 [facility] Comment on above: Performed By: #### T SHR, FT4, ADIFF, BMP, VIDH, ANEU, GFR, PSA, URIC, CBC #### [address] [address] Monocytes/100 WBC (Bld) 10.7 % Normal 2.0-13.[address] [facility] Comment on above: Performed By: #### T SHR, FT4, ADIFF, BMP, VIDH, ANEU, GFR, PSA, URIC, CBC #### [address] [address] Neutrophils/100 WBC (Bld) 70.9 % Normal 50.0-75.[address] [facility] Comment on above: Performed By: #### T SHR, FT4, ADIFF, BMP, VIDH, ANEU, GFR, PSA, URIC, CBC #### [address] [address] .GFRon 02-29-2024 GFR 74 ml/min/1.73sqm [facility] Comment on above: Result Comment: GFR Population mean for , Non- Americans Ages 20-29 = 116 mL/min/1.73 sq.m. Ages 30-39 = 107 mL/min/1.73 sq.m. Ages 40-49 = 99 mL/min/1.73 sq.m. Ages 50-59 = 93 mL/min/1.73 sq.m. Ages 60-69 = 85 mL/min/1.73 sq.m. Ages 70+ = 75 mL/min/1.73 sq.m. Chronic Kidney Disease: Less than 60 mL/min/1.73 square meters End Stage Renal Disease: Less than 15 mL/min/1.73 square meters Performed By: #### G FR, BMP, ADIFF, ANEU, CBC #### [address] [address] GFR Non- 61 ml/min/1.73sqm [facility] Comment on above: Result Comment: GFR Population mean for , Non- Americans Ages 20-29 = 116 mL/min/1.73 sq.m. Ages 30-39 = 107 mL/min/1.73 sq.m. Ages 40-49 = 99 mL/min/1.73 sq.m. Ages 50-59 = 93 mL/min/1.73 sq.m. Ages 60-69 = 85 mL/min/1.73 sq.m. Ages 70+ = 75 mL/min/1.73 sq.m. Chronic Kidney Disease: Less than 60 mL/min/1.73 square meters End Stage Renal Disease: Less than 15 mL/min/1.73 square meters Performed By: #### G FR, BMP, ADIFF, ANEU, CBC #### [address] [address] .NEUABSon 02-29-2024 Neutrophil, Absolute 6.3 10 3/mcL Normal 2.3-8.1 [facility] Comment on above: Performed By: #### T SHR, FT4, ADIFF, BMP, VIDH, ANEU, GFR, PSA, URIC, CBC #### [address] [address] BMPon 02-29-2024 BUN/Creatinine Ratio 15 ratio Normal 7-27 [facility] Comment on above: Performed By: #### G FR, BMP, ADIFF, ANEU, CBC #### [place] [id number] Calcium [Mass/Vol] 9.2 mg/dL Normal 8.4-10.2 [facility] Comment on above: Performed By: #### G FR, BMP, ADIFF, ANEU, CBC #### [address] [address] Chloride [Moles/Vol] 104 mmol/L Normal 98-107 [facility] Comment on above: Performed By: #### G FR, BMP, ADIFF, ANEU, CBC #### [address] [address] CO2 [Moles/Vol] 28 mmol/L Normal 23-[address] [facility] Comment on above: Performed By: #### G FR, BMP, ADIFF, ANEU, CBC #### [address] [address] Creatinine [Mass/Vol] 1.15 mg/dL Normal 0.70-1.30 [facility] Comment on above: Result Comment: Test ing performed on Siemens Dimension EXL analyzer using a modified kinetic Moraima technique. Performed By: #### G FR, BMP, ADIFF, ANEU, CBC #### [address] [address] Electrolyte Balance 9.0 mEq/L Normal 4.0-15.0 [facility] Comment on above: Performed By: #### G FR, BMP, ADIFF, ANEU, CBC #### [place] [address] Glucose [Mass/Vol] 96 mg/dL Normal 83-110 [facility] Comment on above: Performed By: #### G FR, BMP, ADIFF, ANEU, CBC #### [address] [address] Potassium [Moles/Vol] 4.2 mmol/L Normal 3.5-5.1 [facility] Comment on above: Performed By: #### G FR, BMP, ADIFF, ANEU, CBC #### [place] [address] Sodium [Moles/Vol] 141 mmol/L Normal 136-145 [facility] Comment on above: Performed By: #### G FR, BMP, ADIFF, ANEU, CBC #### [address] [address] Urea nitrogen [Mass/Vol] 17 mg/dL Normal 7-[address] [facility] Comment on above: Performed By: #### G FR, BMP, ADIFF, ANEU, CBC #### [address] [address] CBCon 02-29-2024 Erythrocyte distribution width (RBC) [Ratio] 13.9 % Normal 11.5-15.[address] [facility] Comment on above: Performed By: #### T SHR, FT4, ADIFF, BMP, VIDH, ANEU, GFR, PSA, URIC, CBC #### [address] [address] Hematocrit (Bld) [Volume fraction] 42.2 % Normal 40.0-52.[address] [facility] Comment on above: Performed By: #### T SHR, FT4, ADIFF, BMP, VIDH, ANEU, GFR, PSA, URIC, CBC #### [address] [address] Hgb 14.5 G/dL Normal 13.0-17.[address] [facility] Comment on above: Performed By: #### T SHR, FT4, ADIFF, BMP, VIDH, ANEU, GFR, PSA, URIC, CBC #### [address] [address] MCH (RBC) [Entitic mass] 34.8 pg High 27.0-33.[address] [facility] Comment on above: Performed By: #### T SHR, FT4, ADIFF, BMP, VIDH, ANEU, GFR, PSA, URIC, CBC #### [address] [address] MCHC 34.4 G/dL Normal 32.0-36.[address] [facility] Comment on above: Performed By: #### T SHR, FT4, ADIFF, BMP, VIDH, ANEU, GFR, PSA, URIC, CBC #### [address] [address] MCV (RBC) [Entitic vol] 101.3 fL High 81.0-100.[address] [facility] Comment on above: Performed By: #### T SHR, FT4, ADIFF, BMP, VIDH, ANEU, GFR, PSA, URIC, CBC #### [address] [address] Platelet 147 10 3/mcL Low 150-[address] [facility] Comment on above: Performed By: #### T SHR, FT4, ADIFF, BMP, VIDH, ANEU, GFR, PSA, URIC, CBC #### [address] [address] Platelet mean volume (Bld) [Entitic vol] 7.7 fL Normal 6.4-10.[address] [facility] Comment on above: Performed By: #### T SHR, FT4, ADIFF, BMP, VIDH, ANEU, GFR, PSA, URIC, CBC #### [address] [address] RBC 4.17 10 6/mcL Low 4.50-6.[address] [facility] Comment on above: Performed By: #### T SHR, FT4, ADIFF, BMP, VIDH, ANEU, GFR, PSA, URIC, CBC #### [address] [address] WBC 9.0 10 3/mcL Normal 4.5-10.[address] [facility] Comment on above: Performed By: #### T SHR, FT4, ADIFF, BMP, VIDH, ANEU, GFR, PSA, URIC, CBC #### [address] [address] FT4on 02-29-2024 Free T4 [Mass/Vol] 0.97 ng/dL Normal 0.76-1.46 [facility] Comment on above: Order Comment: Order ed by Discern Performed By: #### G FR, BMP, ADIFF, ANEU, CBC #### [address] [address] LABORATORYOrdered By: SYSTEM SYSTEM on 02-29-2024 25-hydroxyvitamin D3 [Mass/Vol] 37.0 ng/mL Invalid Interpretation Code AO ADM SS Comment on above: Interpretive Data: I nterpretive Values Based on Total 25(OH) Vitamin D: Deficient <20 ng/mL Insufficient 20 - <30 ng/mL Sufficient 30-100 ng/mL Basophils (Bld) [#/Vol] 0.1 103/mcL Normal 0.0 - 0.2 10^3/mcL AO Workflow SS Basophils/100 WBC (Bld) 0.9 % Normal 0.0 - 2.5 % AO Workflow SS Calcium [Mass/Vol] 9.2 mg/dL Normal 8.4 - 10. 2 mg/dL AO ADM SS Chloride [Moles/Vol] 104 mmol/L Normal 98 - 10 7 mmol/L AO ADM SS CO2 [Moles/Vol] 28 mmol/L Normal 23 - 31 mmol/L AO ADM SS Creatinine [Mass/Vol] 1.15 mg/dL Normal 0.70 - 1.30 mg/dL AO ADM SS Comment on above: Interpretive Data: T esting performed on Siemens Dimension EXL analyzer using a modified kinetic Moraima technique. Electrolyte Balance 9.0 mEq/L Normal 4.0 - 15 .0 mEq/L AO ADM SS Eosinophil, Absolute 0.3 103/mcL Normal 0.0 - 0 .7 10^3/mcL AO Workflow SS Eosinophils/100 WBC (Bld) 3.3 % Normal 0.0 - 7.0 % AO Workflow SS Erythrocyte distribution width (RBC) [Ratio] 13.9 % Normal 11.5 - 15.5 % AO Workflow SS Free T4 [Mass/Vol] 0.97 ng/dL Normal 0.76 - 1. 46 ng/dL AO ADM SS GFR/1.73 sq M.predicted among blacks MDRD (S/P/Bld) [Vol rate/Area] 74 ml/min/1.73sqm Invalid Interpretation Code AO Chemistry S Comment on above: Interpretive Data: GFR Population mean for , Non- Americans Ages 20-29 = 116 mL/min/1.73 sq.m. Ages 30-39 = 107 mL/min/1.73 sq.m. Ages 40-49 = 99 mL/min/1.73 sq.m. Ages 50-59 = 93 mL/min/1.73 sq.m. Ages 60-69 = 85 mL/min/1.73 sq.m. Ages 70+ = 75 mL/min/1.73 sq.m. Chronic Kidney Disease: Less than 60 mL/min/1.73 square meters End Stage Renal Disease: Less than 15 mL/min/1.73 square meters GFR/1.73 sq M.predicted among non-blacks MDRD (S/P/Bld) [Vol rate/Area] 61 ml/min/1.73sqm Invalid Interpretation Code AO Chemistry S Comment on above: Interpretive Data: GFR Population mean for , Non- Americans Ages 20-29 = 116 mL/min/1.73 sq.m. Ages 30-39 = 107 mL/min/1.73 sq.m. Ages 40-49 = 99 mL/min/1.73 sq.m. Ages 50-59 = 93 mL/min/1.73 sq.m. Ages 60-69 = 85 mL/min/1.73 sq.m. Ages 70+ = 75 mL/min/1.73 sq.m. Chronic Kidney Disease: Less than 60 mL/min/1.73 square meters End Stage Renal Disease: Less than 15 mL/min/1.73 square meters Glucose [Mass/Vol] 96 mg/dL Normal 83 - 110 mg/dL AO ADM SS Hematocrit (Bld) [Volume fraction] 42.2 % Normal 40.0 - 52.0 % AO Workflow SS Hemoglobin (Bld) [Mass/Vol] 14.5 G/dL Normal 13.0 - 17.5 G/dL AO Workflow SS Lymphocytes (Bld) [#/Vol] 1.3 103/mcL Normal 0.9 - 4.3 10^3/mcL AO Workflow SS Lymphocytes/100 WBC (Bld) 14.2 % Low 20.0 - 40.0 % AO Workflow SS MCH (RBC) [Entitic mass] 34.8 pg High 27.0 - 33.0 pg AO Workflow SS MCHC 34.4 G/dL Normal 32.0 - 36.0 G/dL AO Workflow SS MCV (RBC) [Entitic vol] 101.3 fL High 81.0 - 100.0 fL AO Workflow SS Monocytes (Bld) [#/Vol] 1.0 103/mcL Normal 0.1 - 1.4 10^3/mcL AO Workflow SS Monocytes/100 WBC (Bld) 10.7 % Normal 2.0 - 13.0 % AO Workflow SS Neutrophils (Bld) [#/Vol] 6.3 103/mcL Normal 2.3 - 8.1 10^3/mcL AO Workflow SS Neutrophils/100 WBC (Bld) 70.9 % Normal 50.0 - 75.0 % AO Workflow SS Platelet mean volume (Bld) [Entitic vol] 7.7 fL Normal 6.4 - 10.5 fL AO Workflow SS Platelets (Bld) [#/Vol] 147 103/mcL Low 150 - 450 10^3/mcL AO Workflow SS Potassium [Moles/Vol] 4.2 mmol/L Normal 3.5 - 5.1 mmol/L AO ADM SS Prostate specific Ag [Mass/Vol] 1.79 ng/mL Normal 0.00 - 4.00 ng/mL AO ADM SS RBC (Bld) [#/Vol] 4.17 106/mcL Low 4.50 - 6.0 0 10^6/mcL AO Workflow SS Sodium [Moles/Vol] 141 mmol/L Normal 136 - 145 mmol/L AO ADM SS TSH Qn 4.09 m[IU]/L High 0.36 - 3.74 mcIU/mL AO ADM SS Urea nitrogen [Mass/Vol] 17 mg/dL Normal 7 - 18 mg/dL AO ADM SS Urea nitrogen/Creatinine [Mass ratio] 15 ratio Normal 7 - 27 ratio AO ADM SS Uric Acid Lvl 6.1 mg/dL Normal 3.5 - 7.2 mg/dL AO ADM SS WBC (Bld) [#/Vol] 9.0 103/mcL Normal 4.5 - 10.8 10^3/mcL AO Workflow SS PSAon 02-29-2024 Prostate Specific Antigen 1.79 ng/mL Normal 0.00-4.[address] [facility] Comment on above: Performed By: #### G FR, BMP, ADIFF, ANEU, CBC #### [address] [address] TSHRon 02-29-2024 TSH Qn 4.09 m[IU]/L High 0.36-3.[address] [facility] Comment on above: Performed By: #### G FR, BMP, ADIFF, ANEU, CBC #### [address] [address] URICon 02-29-2024 Uric Acid Lvl 6.1 mg/dL Normal 3.5-7.[address] [facility] Comment on above: Performed By: #### G FR, BMP, ADIFF, ANEU, CBC #### [address] [address] VIDHon 02-29-2024 Vit. D 25-Hydroxy 37.0 ng/mL Normal [facility] Comment on above: Result Comment: Inte rpretive Values Based on Total 25(OH) Vitamin D: Deficient <20 ng/mL Insufficient 20 - <30 ng/mL Sufficient 30-100 ng/mL Performed By: #### G FR, BMP, ADIFF, ANEU, CBC #### [place] [place] [address] [place], [place] [address] Cardiology Visit Reporton Cardiology Visit Report [facility] [address] [place] [address] OFFICE VISIT Date of Service: 02/21/24 MR#: [id number] Acct: [id number] Name: SRIDHAR GUZMAN Rep #: [id number] : 1940 Provider: RONDA Taylor Age/Sex: 83/M Location: [facility] Status: Signed HPI HPI History of Present Illness Details: Sridhar Guzman is an 83-year-old man who returns for follow-up visit. He has a history of coronary artery disease with history of bypass surgery. He had an ESTRELLA to the LAD. 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 In September 2018 he underwent a heart catheterization which demonstrated an ejection fraction of 60%. Tortuous aorta with possible aneurysm, left main mild calcification, LAD occluded, diagonal mid mild luminal irregularities, circumflex apparent circumflex with RCA artery at 80% mid segment stenosis, mid RCA less than 30% stenosis, ESTRELLA to LAD patent. Prosthetic valve with stenosis with mean gradient of 48 mmHg by echocardiogram. An aortic root aneurysm was noted and he was referred to the [facility]. In Apr, He underwent axillary cannulation with a 10 mm Dacron side graft, redo median sternotomy, aortic valve replacement and root replacement with a 27 mm Enoc Abel valve, a 30 mm Gelweave Valsalva valve, reimplantation of the coronary arteries, mitral valve repair with a 29 mm Sadie band, and chelsy-arch replacement with a 30 mm Gelweave graft. Postoperatively he did well with an episode of atrial fibrillation and junctional rhythm and some kidney injury. In June of 2019 he presented to the hospital with headache and a supratherapeutic INR of 7.5. 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 He was transferred to the [facility] and was managed conservatively with INR reversal and the hematoma was noted to be stable on repeat CT. Cardiology was consulted and made the decision to continue holding aspirin and Coumadin. He was subsequently discharged in mid June. At the time of his discharge it appears that his EKG showed atrial flutter and there was a question about the need for Eliquis and or a ROCCO cardioversion. He was cleared for a cardioversion by both neurology and hematology. He was started on Eliquis. However day of cardioversion he was noted to have a heart rate of 48. He did have a Holter monitor done which demonstrated 48-hour period of atrial fibrillation/flutter . Average heart rate 53 bpm, minimum heart rate 34 bpm, maximum heart rate 122 bpm. Longest R to R was 1.9 seconds. Because of his low heart rate it was recommended that he undergo a Micra pacemaker placement. This was done in April 2020. From a cardiac standpoint, patient is doing well. He does not have any chest discomfort/heaviness /tightness. He does keep himself busy for his age. He does have fatigue but feels it is appropriate for his age. He does not have any worsening symptoms of shortness of breath. He denies any PND. He does not have any orthopnea. He does not have any symptoms of congestive heart failure. He does not have any palpitations that he is aware of. He does sometimes has lightheadedness or dizziness. He does not have any near-syncope or syncope. He does not have any lower extremity edema. He does not have any symptoms of claudication. He is very [place], does have some memory issues and lives by himself. He is considering surgery on his shoulder. Intake Vital Signs 09/02/23 13:58 02/21/24 08:51 Height 5 ft 11 in 5 ft 11 in Weight: 182 lb BMI 25.4 BP 120/82 H Blood Pressure Location Lt brachial Position Sitting Respiration 18 Pulse 91 Pulse Source Monitor Pulse Oximetry (%) 97 Intake Visit Reasons: 6 M [employer] Required: No Is patient in pain?: No Allergies Penicillins Allergy (Intermediate, Verified 02/21/24 08:51) rash sulfamethoxazole (From Bactrim) Allergy (Intermediate, Verified 02/21/24 08:51) rash trimethoprim (From Bactrim) Allergy (Intermediate, Verified 02/21/24 08:51) rash lidocaine Allergy (Unknown, Verified 02/21/24 08:51) unknown acetaminophen (From Percocet) Adverse Reaction (Intermediate, Verified 02/21/24 08:51) GI upset oxycodone (From Percocet) Adverse Reaction (Intermediate, Verified 02/21/24 08:51) GI upset egg Adverse Reaction (Verified 02/21/24 08:51) Ears plug up, can't hear Medications ???Medication ???Instructions ???Recorded ???Confirmed ???Type nitroglycerin 0.4 mg sublingual 0.4 mg sublingual Q5-15M PRN chest 03/08/23 02/21/24 Rx tablet pain #25 tabs atorvastatin 10 mg tablet 10 mg PO DAILY #90 tabs 09/02/23 02/21/24 Rx amlodipine 5 mg tablet 5 mg PO DAILY #90 tabs 02/21/24 02/21/24 Rx apixaban 5 mg tablet (more content not included)... Normal [facility] .Auto Diffon 08-31-2023 Basophil, Absolute 0.1 10 3/mcL Normal 0.0-0.2 [facility] ([place]) Comment on above: Performed By: #### C BC, LIPID, CMP, GFR, ANEU, URIC, ADIFF, PBNP #### [address] [address] Basophils/100 WBC (Bld) 1.0 % Normal 0.0-2.5 [facility] ([place]) Comment on above: Performed By: #### C BC, LIPID, CMP, GFR, ANEU, URIC, ADIFF, PBNP #### [address] [address] Eosinophil, Absolute 0.3 10 3/mcL Normal 0.0-0.4 [facility] ([place]) Comment on above: Performed By: #### C BC, LIPID, CMP, GFR, ANEU, URIC, ADIFF, PBNP #### [address] [address] Eosinophils/100 WBC (Bld) 4.4 % Normal 0.0-7.0 [facility] ([place] Comment on above: Performed By: #### C BC, LIPID, CMP, GFR, ANEU, URIC, ADIFF, PBNP #### [address] [address] Lymphocyte, Absolute 1.2 10 3/mcL Normal 0.8-3.9 [facility] ([place]) Comment on above: Performed By: #### C BC, LIPID, CMP, GFR, ANEU, URIC, ADIFF, PBNP #### [address] [address] Lymphocytes/100 WBC (Bld) 18.9 % Normal 10.0-50.0 [facility] ([place] Comment on above: Performed By: #### C BC, LIPID, CMP, GFR, ANEU, URIC, ADIFF, PBNP #### [address] [address] Monocyte, Absolute 0.8 10 3/mcL Normal 0.2-1.0 [facility] ([place]) Comment on above: Performed By: #### C BC, LIPID, CMP, GFR, ANEU, URIC, ADIFF, PBNP #### [address] [address] Monocytes/100 WBC (Bld) 12.2 % Normal 1.7-13.0 [facility] ([place] Comment on above: Performed By: #### C BC, LIPID, CMP, GFR, ANEU, URIC, ADIFF, PBNP #### [address] [address] Neutrophils/100 WBC (Bld) 63.5 % Normal 37.0-80.0 [facility] ([place] Comment on above: Performed By: #### C BC, LIPID, CMP, GFR, ANEU, URIC, ADIFF, PBNP #### [address] [address] .GFRon 08-31-2023 GFR 59 ml/min/1.73sqm Normal [facility] ([place]) Comment on above: Result Comment: GFR Population mean for , Non- Americans Ages 20-29 = 116 mL/min/1.73 sq.m. Ages 30-39 = 107 mL/min/1.73 sq.m. Ages 40-49 = 99 mL/min/1.73 sq.m. Ages 50-59 = 93 mL/min/1.73 sq.m. Ages 60-69 = 85 mL/min/1.73 sq.m. Ages 70+ = 75 mL/min/1.73 sq.m. Chronic Kidney Disease: Less than 60 mL/min/1.73 square meters End Stage Renal Disease: Less than 15 mL/min/1.73 square meters Performed By: #### C BC, LIPID, CMP, GFR, ANEU, URIC, ADIFF, PBNP #### [address] [address] GFR Non- 49 ml/min/1.73sqm Normal [facility] ([place]) Comment on above: Result Comment: GFR Population mean for , Non- Americans Ages 20-29 = 116 mL/min/1.73 sq.m. Ages 30-39 = 107 mL/min/1.73 sq.m. Ages 40-49 = 99 mL/min/1.73 sq.m. Ages 50-59 = 93 mL/min/1.73 sq.m. Ages 60-69 = 85 mL/min/1.73 sq.m. Ages 70+ = 75 mL/min/1.73 sq.m. Chronic Kidney Disease: Less than 60 mL/min/1.73 square meters End Stage Renal Disease: Less than 15 mL/min/1.73 square meters Performed By: #### C BC, LIPID, CMP, GFR, ANEU, URIC, ADIFF, PBNP #### [address] [address] .NEUABSon 08-31-2023 Neutrophil, Absolute 4.1 10 3/mcL Normal 2.9-6.2 [facility] ([place]) Comment on above: Performed By: #### C BC, LIPID, CMP, GFR, ANEU, URIC, ADIFF, PBNP #### [address] [address] CBCon 08-31-2023 Erythrocyte distribution width (RBC) [Ratio] 14.1 % Normal 11.5-14.5 [facility] ([place]) Comment on above: Performed By: #### C BC, LIPID, CMP, GFR, ANEU, URIC, ADIFF, PBNP #### [address] [address] Hematocrit (Bld) [Volume fraction] 45.2 % Normal 42.0-52.0 [facility] ([place]) Comment on above: Performed By: #### C BC, LIPID, CMP, GFR, ANEU, URIC, ADIFF, PBNP #### [address] [address] Hgb 15.3 G/dL Normal 14.0-18.0 [facility] ([place]) Comment on above: Performed By: #### C BC, LIPID, CMP, GFR, ANEU, URIC, ADIFF, PBNP #### [address] [address] MCH (RBC) [Entitic mass] 33.9 pg High 27.0-31.2 [facility] ([place]) Comment on above: Performed By: #### C BC, LIPID, CMP, GFR, ANEU, URIC, ADIFF, PBNP #### [address] [address] MCHC 33.9 G/dL Normal 31.8-35.4 [facility] ([place]) Comment on above: Performed By: #### C BC, LIPID, CMP, GFR, ANEU, URIC, ADIFF, PBNP #### [address] [address] MCV (RBC) [Entitic vol] 99.9 fL High 80.0-94.0 [facility] ([place]) Comment on above: Performed By: #### C BC, LIPID, CMP, GFR, ANEU, URIC, ADIFF, PBNP #### [address] [address] Platelet 128 10 3/mcL Low 130-400 [facility] ([place]) Comment on above: Performed By: #### C BC, LIPID, CMP, GFR, ANEU, URIC, ADIFF, PBNP #### [address] [address] Platelet mean volume (Bld) [Entitic vol] 8.4 fL Normal 7.4-10.4 [facility] ([place]) Comment on above: Performed By: #### C BC, LIPID, CMP, GFR, ANEU, URIC, ADIFF, PBNP #### [address] [address] RBC 4.53 10 6/mcL Normal 4.04-6.13 [facility] ([place]) Comment on above: Performed By: #### C BC, LIPID, CMP, GFR, ANEU, URIC, ADIFF, PBNP #### [address] [address] WBC 6.4 10 3/mcL Normal 4.6-10.8 [facility] ([place]) Comment on above: Performed By: #### C BC, LIPID, CMP, GFR, ANEU, URIC, ADIFF, PBNP #### [address] [address] CMPon 08-31-2023 Albumin Level 4.2 G/dL Normal 3.4-4.8 [facility] ([place]) Comment on above: Performed By: #### C BC, LIPID, CMP, GFR, ANEU, URIC, ADIFF, PBNP #### [address] [address] Albumin/Globulin [Mass ratio] 1.4 {ratio} Normal 1.1-2.5 [facility] ([place] Comment on above: Performed By: #### C BC, LIPID, CMP, GFR, ANEU, URIC, ADIFF, PBNP #### [address] [address] ALP [Catalytic activity/Vol] 90 U/L Normal 40-135 [facility] ([place]) Comment on above: Performed By: #### C BC, LIPID, CMP, GFR, ANEU, URIC, ADIFF, PBNP #### [address] [address] ALT [Catalytic activity/Vol] 21 U/L Normal 16-63 [facility] ([place]) Comment on above: Performed By: #### C BC, LIPID, CMP, GFR, ANEU, URIC, ADIFF, PBNP #### [address] [address] AST [Catalytic activity/Vol] 13 U/L Normal 10-40 [facility] ([place]) Comment on above: Performed By: #### C BC, LIPID, CMP, GFR, ANEU, URIC, ADIFF, PBNP #### [address] [address] Bili Total 1.9 mg/dL High 0.2-1.0 [facility] ([place]) Comment on above: Result Comment: Use of this assay is not recommended for patients undergoing treatment with eltrombopag due to the potential for falsely elevated results. Performed By: #### C BC, LIPID, CMP, GFR, ANEU, URIC, ADIFF, PBNP #### [address] [address] BUN/Creatinine Ratio 12 ratio Normal 7-27 [facility] ([place]) Comment on above: Performed By: #### C BC, LIPID, CMP, GFR, ANEU, URIC, ADIFF, PBNP #### [address] [address] Calcium [Mass/Vol] 8.8 mg/dL Normal 8.4-10.2 [facility] ([place]) Comment on above: Performed By: #### C BC, LIPID, CMP, GFR, ANEU, URIC, ADIFF, PBNP #### [address] [address] Chloride [Moles/Vol] 105 mmol/L Normal 98-107 [facility] ([place]) Comment on above: Performed By: #### C BC, LIPID, CMP, GFR, ANEU, URIC, ADIFF, PBNP #### [address] [address] CO2 [Moles/Vol] 25 mmol/L Normal 23-31 [facility] ([place]) Comment on above: Performed By: #### C BC, LIPID, CMP, GFR, ANEU, URIC, ADIFF, PBNP #### [address] [address] Creatinine [Mass/Vol] 1.39 mg/dL High 0.70-1.30 [facility] ([place]) Comment on above: Performed By: #### C BC, LIPID, CMP, GFR, ANEU, URIC, ADIFF, PBNP #### [address] [address] Electrolyte Balance 12.0 mEq/L Normal 4.0-15.0 [facility] ([place]) Comment on above: Performed By: #### C BC, LIPID, CMP, GFR, ANEU, URIC, ADIFF, PBNP #### [address] [address] Globulin 3.1 G/dL Normal [facility] ([place]) Comment on above: Performed By: #### C BC, LIPID, CMP, GFR, ANEU, URIC, ADIFF, PBNP #### [address] [address] Glucose [Mass/Vol] 101 mg/dL Normal 83-110 [facility] ([place]) Comment on above: Performed By: #### C BC, LIPID, CMP, GFR, ANEU, URIC, ADIFF, PBNP #### [address] [address] Potassium [Moles/Vol] 4.2 mmol/L Normal 3.5-5.1 [facility] ([place]) Comment on above: Performed By: #### C BC, LIPID, CMP, GFR, ANEU, URIC, ADIFF, PBNP #### [address] [address] Sodium [Moles/Vol] 142 mmol/L Normal 136-145 [facility] ([place]) Comment on above: Performed By: #### C BC, LIPID, CMP, GFR, ANEU, URIC, ADIFF, PBNP #### [address] [address] Total Protein 7.3 G/dL Normal 6.4-8.2 [facility] ([place]) Comment on above: Performed By: #### C BC, LIPID, CMP, GFR, ANEU, URIC, ADIFF, PBNP #### [address] [address] Urea nitrogen [Mass/Vol] 16 mg/dL Normal 7-18 [facility] ([place]) Comment on above: Performed By: #### C BC, LIPID, CMP, GFR, ANEU, URIC, ADIFF, PBNP #### [place] [address] [place], [place] [address] LIPIDon 08-31-2023 Cholesterol [Mass/Vol] 117 mg/dL Normal 0-200 [facility] ([place]) Comment on above: Result Comment: Chol esterol Reference Interval: Less than 200 Desirable 200-239 Borderline high risk 240 and above High risk Performed By: #### C BC, LIPID, CMP, GFR, ANEU, URIC, ADIFF, PBNP #### [address] [address] Cholesterol in HDL [Mass/Vol] 43 mg/dL Normal 40-60 [facility] ([place]) Comment on above: Performed By: #### C BC, LIPID, CMP, GFR, ANEU, URIC, ADIFF, PBNP #### [address] [address] Cholesterol in LDL [Mass/Vol] 62 mg/dL Normal 0-130 [facility] ([place]) Comment on above: Performed By: #### C BC, LIPID, CMP, GFR, ANEU, URIC, ADIFF, PBNP #### [address] [address] Triglyceride [Mass/Vol] 59 mg/dL Normal 0-150 [facility] ([place]) Comment on above: Result Comment: Trig lyceride Reference Interval: Less than 150 Normal 150-199 Borderline high risk 200-499 High risk 500 or higher Very high risk Performed By: #### C BC, LIPID, CMP, GFR, ANEU, URIC, ADIFF, PBNP #### [address] [address] PBNPon 08-31-2023 Natriuretic peptide B (Bld) [Mass/Vol] 1096 pg/mL High 0-450 [facility] ([place]) Comment on above: Result Comment: NT-p roBNP results of less than 300 pg/mL effectively rules out acute congestive heart failure with 99% negative predictive value. Performed By: #### C BC, LIPID, CMP, GFR, ANEU, URIC, ADIFF, PBNP ####[place] [place], [place] [address] URICon 08-31-2023 Uric Acid Lvl 7.1 mg/dL Normal 3.5-7.2 [facility] ([place] Comment on above: Performed By: #### C BC, LIPID, CMP, GFR, ANEU, URIC, ADIFF, PBNP #### [facility] [address] [place], [place] [address] CT HEAD OR BRAIN W/O CONTRAS Ton 06-18-2023 CT HEAD OR BRAIN W/O CONTRAST ORIGINAL HISTORY: Fall COMPARISON: 01 July 2019 TECHNIQUE: Routine non-contrast head CT with sagittal and coronal reconstructions This exam was performed according to our departmental dose optimization program, and includes the following measures where applicable: automated exposure control, adjustment of the mAs and/or kVp according to patient size and/or exam, and an iterative reconstruction algorithm. FINDINGS: There are small chronic infarcts in both cerebellar hemispheres. The ventricles and sulci are otherwise normal to mildly enlarged. There are no abnormal intra or extra-axial fluid collection. There is mild irregular decreased attenuation in the cerebral white matter. The calvaria and the bones of the base of the skull are intact. 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 Interpreted by: Mohamud Finney MD Preliminary Report By: Mohamud Finney MD Electronically signed By Mohamud Finney MD Dictated Date: 06/18/2023 3:05:07 PM Prelim Date: 06/18/2023 3:06:15 PM Sign Date: 06/18/2023 3:06:15 PM Ordering Provider: PAPI DUBON Normal [facility] ([place] SH[place]ER MINIMUM 2 VIEWS RIGHTon 06-18-2023 XR SHOULDER MINIMUM 2 VIEWS RIGHT ORIGINAL EXAMINATION: THREE XRAY VIEWS OF THE RIGHT SHOULDER06/18/2023 3:44 pm COMPARISON: None HISTORY: ORDERING SYSTEM PROVIDED HISTORY: Reason for Exam: fell yesterday, swelling and minimal ROM FINDINGS: No fracture or dislocation is identified. There are no abnormal periarticular calcifications. Mild degenerative changes are present at the acromioclavicular joint. The included thoracic structures are normal. Right axillary region surgical clips noted. Partially visualized post sternotomy changes. IMPRESSION: No acute fracture or dislocation. I have personally reviewed the images of this examination and agree with the resident's findings and interpretation. Interpreted by: Mike Feliz MD Preliminary Report By: Loren Wilkerson Electronically signed By Mike Feliz MD Dictated Date: 06/18/2023 3:48:45 PM Prelim Date: 06/18/2023 4:06:40 PM Sign Date: 06/18/2023 4:06:40 PM Ordering Provider: PAPI DUBON [facility] ([place]) XR WRIST MINIMUM 3 VIEWS RIG HTon 06-18-2023 XR WRIST MINIMUM 3 VIEWS RIGHT ORIGINAL EXAMINATION: THREE XRAY VIEWS OF THE RIGHT WRIST06/18/2023 3:44 pm COMPARISON: None HISTORY: ORDERING SYSTEM PROVIDED HISTORY: Reason for Exam: fell yesterday, swelling and minimal ROM FINDINGS: No acute fracture or dislocation is identified. Severe degenerative changes at the 1st carpometacarpal joint. There is no radiopaque foreign body. IMPRESSION: No acute fracture or dislocation. 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 I have personally reviewed the images of this examination and agree with the resident's findings and interpretation. Interpreted by: Mike Feliz MD Preliminary Report By: Loren Wilkerson Electronically signed By Mike Feliz MD Dictated Date: 06/18/2023 3:46:09 PM Prelim Date: 06/18/2023 4:07:18 PM Sign Date: 06/18/2023 4:07:18 PM Ordering Provider: PAPI DUBON [facility] ([place]) .Auto Diffon 03-01-2023 Basophil, Absolute 0.1 10 3/mcL Normal 0.0-0.2 [facility] ([place]) Comment on above: Performed By: #### A 1C, VIDH, BMP, CBC, ADIFF, URIC, TSH, GFR, ANEU ####[address] [place], [place] [address]#### B12 ####[address] [address] Basophils/100 WBC (Bld) 1.0 % Normal 0.0-2.5 [facility]) Comment on above: Performed By: #### A 1C, VIDH, BMP, CBC, ADIFF, URIC, TSH, GFR, ANEU ####[place] [address]#### B12 ####[address] [address] Eosinophil, Absolute 0.2 10 3/mcL Normal 0.0-0.4 [facility] ([place]) Comment on above: Performed By: #### A 1C, VIDH, BMP, CBC, ADIFF, URIC, TSH, GFR, ANEU ####[place] [address]#### B12 ####[address] [address] Eosinophils/100 WBC (Bld) 3.3 % Normal 0.0-7.0 [facility] ([place]) Comment on above: Performed By: #### A 1C, VIDH, BMP, CBC, ADIFF, URIC, TSH, GFR, ANEU ####[place] [address]#### B12 ####[place] [address] Lymphocyte, Absolute 1.4 10 3/mcL Normal 0.8-3.9 [facility] ([place] Comment on above: Performed By: #### A 1C, VIDH, BMP, CBC, ADIFF, URIC, TSH, GFR, ANEU ####[place] [address]#### B12 ####[place] [address] Lymphocytes/100 WBC (Bld) 19.6 % Normal 10.0-50.0 [facility] ([place] Comment on above: Performed By: #### A 1C, VIDH, BMP, CBC, ADIFF, URIC, TSH, GFR, ANEU ####[place] [address]#### B12 ####[place] [address] Monocyte, Absolute 0.8 10 3/mcL Normal 0.2-1.0 [facility] ([place]) Comment on above: Performed By: #### A 1C, VIDH, BMP, CBC, ADIFF, URIC, TSH, GFR, ANEU ####[address] [address]#### B12 ####[address] [address] Monocytes/100 WBC (Bld) 11.3 % Normal 1.7-13.0 [facility] ([place] Comment on above: Performed By: #### A 1C, VIDH, BMP, CBC, ADIFF, URIC, TSH, GFR, ANEU ####[address] [address]#### B12 ####[address] [address] Neutrophils/100 WBC (Bld) 64.8 % Normal 37.0-80.0 [facility] ([place] Comment on above: Performed By: #### A 1C, VIDH, BMP, CBC, ADIFF, URIC, TSH, GFR, ANEU ####[address] [address]#### B12 ####[address] [address] .GFRon 03-01-2023 GFR 54 ml/min/1.73sqm Normal [facility] ([place]) Comment on above: Result Comment: GFR Population mean for , Non- Americans Ages 20-29 = 116 mL/min/1.73 sq.m. Ages 30-39 = 107 mL/min/1.73 sq.m. Ages 40-49 = 99 mL/min/1.73 sq.m. Ages 50-59 = 93 mL/min/1.73 sq.m. Ages 60-69 = 85 mL/min/1.73 sq.m. Ages 70+ = 75 mL/min/1.73 sq.m. Chronic Kidney Disease: Less than 60 mL/min/1.73 square meters End Stage Renal Disease: Less than 15 mL/min/1.73 square meters Performed By: #### A 1C, VIDH, BMP, CBC, ADIFF, URIC, TSH, GFR, ANEU ####[place] [address]#### B12 ####[place] [address] GFR Non- 45 ml/min/1.73sqm Normal [facility] ([place] Comment on above: Result Comment: GFR Population mean for , Non- Americans Ages 20-29 = 116 mL/min/1.73 sq.m. Ages 30-39 = 107 mL/min/1.73 sq.m. Ages 40-49 = 99 mL/min/1.73 sq.m. Ages 50-59 = 93 mL/min/1.73 sq.m. Ages 60-69 = 85 mL/min/1.73 sq.m. Ages 70+ = 75 mL/min/1.73 sq.m. Chronic Kidney Disease: Less than 60 mL/min/1.73 square meters End Stage Renal Disease: Less than 15 mL/min/1.73 square meters Performed By: #### A 1C, VIDH, BMP, CBC, ADIFF, URIC, TSH, GFR, ANEU ####[place] [address]#### B12 ####[place] [address] .NEUABSon 03-01-2023 Neutrophil, Absolute 4.7 10 3/mcL Normal 2.9-6.2 [facility] ([place] Comment on above: Performed By: #### A 1C, VIDH, BMP, CBC, ADIFF, URIC, TSH, GFR, ANEU ####[place] [id number]#### B12 ####[place] [address] A1Con 03-01-2023 HbA1c (Bld) [Mass fraction] 5.7 % Normal 4.3-6.4 [facility] ([place] Comment on above: Performed By: #### A 1C, VIDH, BMP, CBC, ADIFF, URIC, TSH, GFR, ANEU ####[place] [address]#### B12 ####[address] [address] B12on 03-01-2023 Cobalamin (Vitamin B12) [Mass/Vol] 467 pg/mL Normal 211-911 [facility] ([place] Comment on above: Performed By: #### A 1C, VIDH, BMP, CBC, ADIFF, URIC, TSH, GFR, ANEU ####[place] [address]#### B12 ####[place] [address] BMPon 03-01-2023 BUN/Creatinine Ratio 13 ratio Normal 7-27 [facility] ([place]) Comment on above: Performed By: #### A 1C, VIDH, BMP, CBC, ADIFF, URIC, TSH, GFR, ANEU ####[place] [address]#### B12 ####[place] [address] Calcium [Mass/Vol] 9.5 mg/dL Normal 8.4-10.2 [facility] ([place]) Comment on above: Performed By: #### A 1C, VIDH, BMP, CBC, ADIFF, URIC, TSH, GFR, ANEU ####[place] [address]#### B12 ####[place] [address] Chloride [Moles/Vol] 102 mmol/L Normal 98-107 [facility] ([place]) Comment on above: Performed By: #### A 1C, VIDH, BMP, CBC, ADIFF, URIC, TSH, GFR, ANEU ####[place] [address]#### B12 ####[place] [address] CO2 [Moles/Vol] 26 mmol/L Normal 23-31 [facility] ([place] Comment on above: Performed By: #### A 1C, VIDH, BMP, CBC, ADIFF, URIC, TSH, GFR, ANEU ####[place] [address]#### B12 ####[place] [address] Creatinine [Mass/Vol] 1.50 mg/dL High 0.70-1.30 [facility] ([place] Comment on above: Performed By: #### A 1C, VIDH, BMP, CBC, ADIFF, URIC, TSH, GFR, ANEU ####[place] [address]#### B12 ####[place] [address] Electrolyte Balance 9.0 mEq/L Normal 4.0-15.0 [facility] ([place]) Comment on above: Performed By: #### A 1C, VIDH, BMP, CBC, ADIFF, URIC, TSH, GFR, ANEU ####[place] [address]#### B12 ####[place] [address] Glucose [Mass/Vol] 110 mg/dL Normal 83-110 [facility] ([place] Comment on above: Performed By: #### A 1C, VIDH, BMP, CBC, ADIFF, URIC, TSH, GFR, ANEU ####[place] [address]#### B12 ####[place] [address] Potassium [Moles/Vol] 4.5 mmol/L Normal 3.5-5.1 [facility] ([place] Comment on above: Performed By: #### A 1C, VIDH, BMP, CBC, ADIFF, URIC, TSH, GFR, ANEU ####[place] [address]#### B12 ####[place] [address] Sodium [Moles/Vol] 137 mmol/L Normal 136-145 [facility] ([place] Comment on above: Performed By: #### A 1C, VIDH, BMP, CBC, ADIFF, URIC, TSH, GFR, ANEU ####[place] [address]#### B12 ####[place] [address] Urea nitrogen [Mass/Vol] 20 mg/dL High 7-18 [facility] ([place] Comment on above: Performed By: #### A 1C, VIDH, BMP, CBC, ADIFF, URIC, TSH, GFR, ANEU ####[place] [address]#### B12 ####[place] [address] CBCon 03-01-2023 Erythrocyte distribution width (RBC) [Ratio] 13.9 % Normal 11.5-14.5 [facility] ([place] Comment on above: Performed By: #### A 1C, VIDH, BMP, CBC, ADIFF, URIC, TSH, GFR, ANEU ####[place] [address]#### B12 ####[place] [address] Hematocrit (Bld) [Volume fraction] 42.3 % Normal 42.0-52.0 [facility] ([place] Comment on above: Performed By: #### A 1C, VIDH, BMP, CBC, ADIFF, URIC, TSH, GFR, ANEU ####[place] [address]#### B12 ####[place] [address] Hgb 14.6 G/dL Normal 14.0-18.0 [facility] ([place] Comment on above: Performed By: #### A 1C, VIDH, BMP, CBC, ADIFF, URIC, TSH, GFR, ANEU ####[place] [address]#### B12 ####[place] [address] MCH (RBC) [Entitic mass] 33.4 pg High 27.0-31.2 [facility] ([place] Comment on above: Performed By: #### A 1C, VIDH, BMP, CBC, ADIFF, URIC, TSH, GFR, ANEU ####[place] [address]#### B12 ####[place] [address] MCHC 34.4 G/dL Normal 31.8-35.4 [facility] ([place] Comment on above: Performed By: #### A 1C, VIDH, BMP, CBC, ADIFF, URIC, TSH, GFR, ANEU ####[place] [address]#### B12 ####[place] [address] MCV (RBC) [Entitic vol] 96.9 fL High 80.0-94.0 [facility] ([place] Comment on above: Performed By: #### A 1C, VIDH, BMP, CBC, ADIFF, URIC, TSH, GFR, ANEU ####[place] [address]#### B12 ####[place] [address] Platelet 122 10 3/mcL Low 130-400 [facility] ([place] Comment on above: Performed By: #### A 1C, VIDH, BMP, CBC, ADIFF, URIC, TSH, GFR, ANEU ####[place] [address]#### B12 ####[place] [address] Platelet mean volume (Bld) [Entitic vol] 8.6 fL Normal 7.4-10.4 [facility] ([place] Comment on above: Performed By: #### A 1C, VIDH, BMP, CBC, ADIFF, URIC, TSH, GFR, ANEU ####[place] [address]#### B12 ####[place] [address] RBC 4.36 10 6/mcL Normal 4.04-6.13 [facility] ([place] Comment on above: Performed By: #### A 1C, VIDH, BMP, CBC, ADIFF, URIC, TSH, GFR, ANEU ####[facility] [place], [place] [address]#### B12 ####[address] [address] WBC 7.3 10 3/mcL Normal 4.6-10.8 [facility] ([place] Comment on above: Performed By: #### A 1C, VIDH, BMP, CBC, ADIFF, URIC, TSH, GFR, ANEU ####[address] [place], [place] [address]#### B12 ####[place] [address] LABORATORYOrdered By: SYSTEM SYSTEM on 03-01-2023 25-hydroxyvitamin D3 [Mass/Vol] 39.8 ng/mL Invalid Interpretation Code AO ADM SS Comment on above: Interpretive Data: I nterpretive Values Based on Total 25(OH) Vitamin D: Deficient <20 ng/mL Insufficient 20 - <30 ng/mL Sufficient 30-100 ng/mL Basophil, Absolute 0.1 103/mcL Normal 0.0 - 0.2 10^3/mcL AO Workflow SS Basophils/100 WBC (Bld) 1.0 % Normal 0.0 - 2.5 % AO Workflow SS Calcium [Mass/Vol] 9.5 mg/dL Normal 8.4 - 10. 2 mg/dL AO ADM SS Chloride [Moles/Vol] 102 mmol/L Normal 98 - 10 7 mmol/L AO ADM SS CO2 [Moles/Vol] 26 mmol/L Normal 23 - 31 mmol/L AO ADM SS Cobalamin (Vitamin B12) [Mass/Vol] 467 pg/mL Normal 211 - 911 pg/mL AH ADM SS Creatinine [Mass/Vol] 1.50 mg/dL High 0.70 - 1.30 mg/dL AO ADM SS Electrolyte Balance 9.0 mEq/L Normal 4.0 - 15 .0 mEq/L AO ADM SS Eosinophil, Absolute 0.2 103/mcL Normal 0.0 - 0 .4 10^3/mcL AO Workflow SS Eosinophils/100 WBC (Bld) 3.3 % Normal 0.0 - 7.0 % AO Workflow SS Erythrocyte distribution width (RBC) [Ratio] 13.9 % Normal 11.5 - 14.5 % AO Workflow SS GFR/1.73 sq M.predicted among blacks MDRD (S/P/Bld) [Vol rate/Area] 54 ml/min/1.73sqm Invalid Interpretation Code AO Chemistry S Comment on above: Interpretive Data: GFR Population mean for , Non- Americans Ages 20-29 = 116 mL/min/1.73 sq.m. Ages 30-39 = 107 mL/min/1.73 sq.m. Ages 40-49 = 99 mL/min/1.73 sq.m. Ages 50-59 = 93 mL/min/1.73 sq.m. Ages 60-69 = 85 mL/min/1.73 sq.m. Ages 70+ = 75 mL/min/1.73 sq.m. Chronic Kidney Disease: Less than 60 mL/min/1.73 square meters End Stage Renal Disease: Less than 15 mL/min/1.73 square meters GFR/1.73 sq M.predicted among non-blacks MDRD (S/P/Bld) [Vol rate/Area] 45 ml/min/1.73sqm Invalid Interpretation Code AO Chemistry S Comment on above: Interpretive Data: GFR Population mean for , Non- Americans Ages 20-29 = 116 mL/min/1.73 sq.m. Ages 30-39 = 107 mL/min/1.73 sq.m. Ages 40-49 = 99 mL/min/1.73 sq.m. Ages 50-59 = 93 mL/min/1.73 sq.m. Ages 60-69 = 85 mL/min/1.73 sq.m. Ages 70+ = 75 mL/min/1.73 sq.m. Chronic Kidney Disease: Less than 60 mL/min/1.73 square meters End Stage Renal Disease: Less than 15 mL/min/1.73 square meters Glucose [Mass/Vol] 110 mg/dL Normal 83 - 110 mg/dL AO ADM SS HbA1c (Bld) [Mass fraction] 5.7 % Normal 4.3 - 6.4 % AO ADM SS Hematocrit (Bld) [Volume fraction] 42.3 % Normal 42.0 - 52.0 % AO Workflow SS Hemoglobin (Bld) [Mass/Vol] 14.6 G/dL Normal 14.0 - 18.0 G/dL AO Workflow SS Lymphocyte, Absolute 1.4 103/mcL Normal 0.8 - 3 .9 10^3/mcL AO Workflow SS Lymphocytes/100 WBC (Bld) 19.6 % Normal 10.0 - 50.0 % AO Workflow SS MCH (RBC) [Entitic mass] 33.4 pg High 27.0 - 31.2 pg AO Workflow SS MCHC 34.4 G/dL Normal 31.8 - 35.4 G/dL AO Workflow SS MCV (RBC) [Entitic vol] 96.9 fL High 80.0 - 94.0 fL AO Workflow SS Monocyte, Absolute 0.8 103/mcL Normal 0.2 - 1.0 10^3/mcL AO Workflow SS Monocytes/100 WBC (Bld) 11.3 % Normal 1.7 - 13.0 % AO Workflow SS Neutrophil, Absolute 4.7 103/mcL Normal 2.9 - 6 .2 10^3/mcL AO Workflow SS Neutrophils/100 WBC (Bld) 64.8 % Normal 37.0 - 80.0 % AO Workflow SS Platelet mean volume (Bld) [Entitic vol] 8.6 fL Normal 7.4 - 10.4 fL AO Workflow SS Platelets (Bld) [#/Vol] 122 103/mcL Low 130 - 400 10^3/mcL AO Workflow SS Potassium [Moles/Vol] 4.5 mmol/L Normal 3.5 - 5.1 mmol/L AO ADM SS RBC (Bld) [#/Vol] 4.36 106/mcL Normal 4.04 - 6.1 3 10^6/mcL AO Workflow SS Sodium [Moles/Vol] 137 mmol/L Normal 136 - 145 mmol/L AO ADM SS TSH Qn 2.28 m[IU]/L Normal 0.36 - 3.74 mcIU/mL AO ADM SS Urea nitrogen [Mass/Vol] 20 mg/dL High 7 - 18 mg/dL AO ADM SS Urea nitrogen/Creatinine [Mass ratio] 13 ratio Normal 7 - 27 ratio AO ADM SS Uric Acid Lvl 7.8 mg/dL High 3.5 - 7.2 mg/dL AO ADM SS WBC (Bld) [#/Vol] 7.3 103/mcL Normal 4.6 - 10.8 10^3/mcL AO Workflow SS TSHon 03-01-2023 TSH Qn 2.28 m[IU]/L Normal 0.36-3.74 [facility] ([place] Comment on above: Order Comment: REFLE X FREE T4 IF ABNORMAL! (TSH < 0.36, or TSH > 3.64) Performed By: #### A 1C, VIDH, BMP, CBC, ADIFF, URIC, TSH, GFR, ANEU ####[place] [address]#### B12 ####[place] [address] URICon 03-01-2023 Uric Acid Lvl 7.8 mg/dL High 3.5-7.2 [facility] ([place] Comment on above: Performed By: #### A 1C, VIDH, BMP, CBC, ADIFF, URIC, TSH, GFR, ANEU ####[place] [address]#### B12 ####[place] [address] VIDHon 03-01-2023 Vit. D 25-Hydroxy 39.8 ng/mL Normal [facility] ([place] Comment on above: Result Comment: Inte rpretive Values Based on Total 25(OH) Vitamin D: Deficient <20 ng/mL Insufficient 20 - <30 ng/mL Sufficient 30-100 ng/mL Performed By: #### A 1C, VIDH, BMP, CBC, ADIFF, URIC, TSH, GFR, ANEU ####[place] [address]#### B12 ####[place] [address] .GFRon 10-13-2022 GFR 60 ml/min/1.73sqm Normal [facility] ([place] Comment on above: Result Comment: GFR Population mean for , Non- Americans Ages 20-29 = 116 mL/min/1.73 sq.m. Ages 30-39 = 107 mL/min/1.73 sq.m. Ages 40-49 = 99 mL/min/1.73 sq.m. Ages 50-59 = 93 mL/min/1.73 sq.m. Ages 60-69 = 85 mL/min/1.73 sq.m. Ages 70+ = 75 mL/min/1.73 sq.m. Chronic Kidney Disease: Less than 60 mL/min/1.73 square meters End Stage Renal Disease: Less than 15 mL/min/1.73 square meters Performed By: #### P TH, PRALB ####[place] [address]#### BMP, GFR ####[place] [address] [place], [place] [address] GFR Non- 49 ml/min/1.73sqm Normal [facility] ([place] Comment on above: Result Comment: GFR Population mean for , Non- Americans Ages 20-29 = 116 mL/min/1.73 sq.m. Ages 30-39 = 107 mL/min/1.73 sq.m. Ages 40-49 = 99 mL/min/1.73 sq.m. Ages 50-59 = 93 mL/min/1.73 sq.m. Ages 60-69 = 85 mL/min/1.73 sq.m. Ages 70+ = 75 mL/min/1.73 sq.m. Chronic Kidney Disease: Less than 60 mL/min/1.73 square meters End Stage Renal Disease: Less than 15 mL/min/1.73 square meters Performed By: #### P TH, PRALB ####[place] [address]#### BMP, GFR ####[facility] [place], [place] [address] BMPon 10-13-2022 BUN/Creatinine Ratio 13 ratio Normal 7-27 [facility] ([place] Comment on above: Performed By: #### P TH, PRALB ####[place] [address]#### BMP, GFR ####[place] [address] [place], [place] [address] Calcium [Mass/Vol] 9.2 mg/dL Normal 8.4-10.2 [facility] ([place] Comment on above: Performed By: #### P TH, PRALB ####[address] [address]#### BMP, GFR ####[facility] [place], [place] [address] Chloride [Moles/Vol] 105 mmol/L Normal 98-107 [facility] ([place] Comment on above: Performed By: #### P TH, PRALB ####[place] [address]#### BMP, GFR ####[facility] [place], [place] [address] CO2 [Moles/Vol] 29 mmol/L Normal 23-31 [facility] ([place] Comment on above: Performed By: #### P TH, PRALB ####[place] [address]#### BMP, GFR ####[facility] [place], [place] [address] Creatinine [Mass/Vol] 1.38 mg/dL High 0.70-1.30 [facility] ([place] Comment on above: Performed By: #### P TH, PRALB ####[place] [address]#### BMP, GFR ####[facility] [place], [place] [address] Electrolyte Balance 7.0 mEq/L Normal 4.0-15.0 [facility] ([place]) Comment on above: Performed By: #### P TH, PRALB ####[place] [address]#### BMP, GFR ####[place] [address] [place], [place] [address] Glucose [Mass/Vol] 100 mg/dL Normal 83-110 [facility] ([place] Comment on above: Performed By: #### P TH, PRALB ####[place] [address]#### BMP, GFR ####[facility] [place], [place] [address] Potassium [Moles/Vol] 4.9 mmol/L Normal 3.5-5.1 [facility] ([place] Comment on above: Performed By: #### P TH, PRALB ####[place] [address] [address] [place] [address]#### BMP, GFR ####[place] [address] [place], [place] [address] Sodium [Moles/Vol] 141 mmol/L Normal 136-145 [facility] ([place] Comment on above: Performed By: #### P TH, PRALB ####[address] [address]#### BMP, GFR ####[facility] [place], [place] [address] Urea nitrogen [Mass/Vol] 18 mg/dL Normal 7-18 [facility] ([place] Comment on above: Performed By: #### P TH, PRALB ####[address] [address]#### BMP, GFR ####[place] [address] [place], [place] [address] LABORATORYOrdered By: SYSTEM SYSTEM on 10-13-2022 Calcium [Mass/Vol] 9.2 mg/dL Invalid Interpretation Code 8.4 - 10.2 mg/dL AO ADM SS Chloride [Moles/Vol] 105 mmol/L Invalid Interpretation Code 98 - 107 mmol/L AO ADM SS CO2 [Moles/Vol] 29 mmol/L Invalid Interpretation Code 23 - 31 mmol/L AO ADM SS Creatinine [Mass/Vol] 1.38 mg/dL Invalid Interpretation Code 0.70 - 1.30 mg/dL AO ADM SS Electrolyte Balance 7.0 mEq/L Invalid Interpretation Code 4.0 - 15.0 mEq/L AO ADM SS GFR/1.73 sq M.predicted among blacks MDRD (S/P/Bld) [Vol rate/Area] 60 ml/min/1.73sqm Invalid Interpretation Code AO Chemistry S Comment on above: Interpretive Data: GFR Population mean for , Non- Americans Ages 20-29 = 116 mL/min/1.73 sq.m. Ages 30-39 = 107 mL/min/1.73 sq.m. Ages 40-49 = 99 mL/min/1.73 sq.m. Ages 50-59 = 93 mL/min/1.73 sq.m. Ages 60-69 = 85 mL/min/1.73 sq.m. Ages 70+ = 75 mL/min/1.73 sq.m. Chronic Kidney Disease: Less than 60 mL/min/1.73 square meters End Stage Renal Disease: Less than 15 mL/min/1.73 square meters GFR/1.73 sq M.predicted among non-blacks MDRD (S/P/Bld) [Vol rate/Area] 49 ml/min/1.73sqm Invalid Interpretation Code AO Chemistry S Comment on above: Interpretive Data: GFR Population mean for , Non- Americans Ages 20-29 = 116 mL/min/1.73 sq.m. Ages 30-39 = 107 mL/min/1.73 sq.m. Ages 40-49 = 99 mL/min/1.73 sq.m. Ages 50-59 = 93 mL/min/1.73 sq.m. Ages 60-69 = 85 mL/min/1.73 sq.m. Ages 70+ = 75 mL/min/1.73 sq.m. Chronic Kidney Disease: Less than 60 mL/min/1.73 square meters End Stage Renal Disease: Less than 15 mL/min/1.73 square meters Glucose [Mass/Vol] 100 mg/dL Invalid Interpretation Code 83 - 110 mg/dL AO ADM SS Parathyrin.intact [Mass/Vol] 72.7 pg/mL Invalid Interpretation Code 18.5 - 88.0 pg/mL AH ADM SS Potassium [Moles/Vol] 4.9 mmol/L Invalid Interpretation Code 3.5 - 5.1 mmol/L AO ADM SS Prealbumin [Mass/Vol] 21.5 mg/dL Invalid Interpretation Code 10.0 - 40.0 mg/dL AH ADM SS Comment on above: Interpretive Data: * *Note - New Reference Range in effect 19 Sodium [Moles/Vol] 141 mmol/L Invalid Interpretation Code 136 - 145 mmol/L AO ADM SS Urea nitrogen [Mass/Vol] 18 mg/dL Invalid Interpretation Code 7 - 18 mg/dL AO ADM SS Urea nitrogen/Creatinine [Mass ratio] 13 ratio Invalid Interpretation Code 7 - 27 ratio AO ADM SS PRALBon 10-13-2022 Prealbumin [Mass/Vol] 21.5 mg/dL Normal 10.0-40.0 [facility] ([place] Comment on above: Result Comment: No te - New Reference Range in effect 19 Performed By: #### P TH, PRALB ####[place] [address] [place] [address]#### BMP, GFR ####[facility] [place], [place] [address] PTHon 10-13-2022 PTH, Intact 72.7 pg/mL Normal 18.5-88.0 [facility] ([place] Comment on above: Performed By: #### P TH, PRALB ####[place] [address]#### BMP, GFR ####[facility] [place] [address] LABORATORYOrdered By: Beatrice Hidalgo on 07-30-2022 aPTT Coag (PPP) [Time] 33.5 s Invalid Interpretation Code 25.0 - 35.0 seconds AO [facility] SS Heparin dose (APTT) Unknown (07/30/22 9:22 AM) Invalid Interpretation Code AO [facility] SS INR Coag (PPP) [Relative time] 1.5 {INR} Invalid Interpretation Code AO [facility] SS PT Coag (PPP) [Time] 17.6 s Invalid Interpretation Code 9.1 - 14.2 seconds AO [facility] SS LABORATORYOrdered By: Yin Wong on 07-30-2022 Basophil, Absolute 0.1 103/mcL Invalid Interpretation Code 0.0 - 0.2 10^3/mcL AO Workflow SS Basophils/100 WBC (Bld) 0.8 % Invalid Interpretation Code 0.0 - 2.5 % AO Workflow SS Eosinophil, Absolute 0.3 103/mcL Invalid Interpretation Code 0.0 - 0.4 10^3/mcL AO Workflow SS Eosinophils/100 WBC (Bld) 2.1 % Invalid Interpretation Code 0.0 - 7.0 % AO Workflow SS Erythrocyte distribution width (RBC) [Ratio] 13.4 % Invalid Interpretation Code 11.5 - 14.5 % AO Workflow SS Hematocrit (Bld) [Volume fraction] 42.3 % Invalid Interpretation Code 42.0 - 52.0 % AO Workflow SS Hemoglobin (Bld) [Mass/Vol] 14.2 G/dL Invalid Interpretation Code 14.0 - 18.0 G/dL AO Workflow SS Lymphocyte, Absolute 1.2 103/mcL Invalid Interpretation Code 0.8 - 3.9 10^3/mcL AO Workflow SS Lymphocytes/100 WBC (Bld) 10.1 % Invalid Interpretation Code 10.0 - 50.0 % AO Workflow SS MCH (RBC) [Entitic mass] 32.6 pg Invalid Interpretation Code 27.0 - 31.2 pg AO Workflow SS MCHC 33.4 G/dL Invalid Interpretation Code 31.8 - 35.4 G/dL AO Workflow SS MCV (RBC) [Entitic vol] 97.3 fL Invalid Interpretation Code 80.0 - 94.0 fL AO Workflow SS Monocyte, Absolute 1.3 103/mcL Invalid Interpretation Code 0.2 - 1.0 10^3/mcL AO Workflow SS Monocytes/100 WBC (Bld) 10.4 % Invalid Interpretation Code 1.7 - 13.0 % AO Workflow SS Neutrophil, Absolute 9.2 103/mcL Invalid Interpretation Code 2.9 - 6.2 10^3/mcL AO Workflow SS Neutrophils/100 WBC (Bld) 76.6 % Invalid Interpretation Code 37.0 - 80.0 % AO Workflow SS Platelet mean volume (Bld) [Entitic vol] 8.4 fL Invalid Interpretation Code 7.4 - 10.4 fL AO Workflow SS Platelets (Bld) [#/Vol] 191 103/mcL Invalid Interpretation Code 130 - 400 10^3/mcL AO Workflow SS RBC (Bld) [#/Vol] 4.35 106/mcL Invalid Interpretation Code 4.04 - 6.13 10^6/mcL AO Workflow SS WBC (Bld) [#/Vol] 12.1 103/mcL Invalid Interpretation Code 4.6 - 10.8 10^3/mcL AO Workflow SS Absolute lymphocyte countOrd ered By: Rohini Ascencio on 06-23-2022 Lymphocytes Auto (Unsp spec) [#/Vol] 1.26 10*3/uL 0.83-4.51 [facility] Basophil percentageOrdered B y: Rohini Ascencio on 06-23-2022 Basophils/100 WBC (Bld) 1.0 % 0-1 [facility] Bilirubin [Mass/Vol] 2.40 mg/dL 0.20-1.00 [facility] Comment on above: For patients on eltr ombopag therapy, use of Dimension [place] TBIL is not recommended. Chloride [Moles/Vol] 108 mmol/L 98-107 [facility] Eosinophils/100 WBC (Bld) 4.1 % 0-5 [facility] Glucose [Mass/Vol] 103 mg/dL 74-106 [facility] Comment on above: Fasting Glucose resu lt from 100 to 125 mg/dL suggests IMPAIRED HOMEOSTASIS per A.D.A. criteria. Neutrophils (Bld) [#/Vol] 4.6 10*3/uL 2.0-7.7 [facility] Neutrophils/100 WBC (Bld) 64.1 % 47-70 [facility] Potassium [Moles/Vol] 4.4 mmol/L 3.5-5.1 [facility] Protein [Mass/Vol] 7.6 g/dL 6.4-8.2 [facility] Sodium [Moles/Vol] 138 mmol/L 136-145 [facility] WBC (Bld) [#/Vol] 7.2 10*3/uL 4.4-11.0 [facility] Basophil percentageOrdered B y: Dr. Porras on 06-23-2022 Cholesterol [Mass/Vol] 106 mg/dL <200 [facility] Comment on above: <200 mg/dL Desirable 200-240 mg/dL Borderline >240 mg/dL High Risk Triglyceride [Mass/Vol] 86 mg/dL <199 [facility] Comment on above: The drugs N-Acetylcy steine and Metamizole may falsely depress this assay.Serum Triglycerides Reference Interval Normal <150 mg/dL Borderline high 150 - 199 mg/dL High 200 - 499 mg/dL Very High > or = 500 mg/dL Blood erythrocytes count (nu mber/volume)Ordered By: Rohini Ascencio on 06-23-2022 RBC (Bld) [#/Vol] 4.64 10*6/uL 4.6-6.2 [facility] Blood hemoglobin measurement (mass/volume)Ordered By: Rohini Ascencio on 06-23-2022 Hemoglobin (Bld) [Mass/Vol] 15.8 g/dL 13.0-16.5 [facility] Blood lymphocytes/100 leukoc ytesOrdered By: Rohini Ascencio on 06-23-2022 Lymphocytes/100 WBC (Bld) 17.4 % 19-41 [facility] Blood monocytes/100 leukocyt esOrdered By: Rohini Ascencio on 06-23-2022 Monocytes/100 WBC (Bld) 13.0 % 0-10 [facility] Blood platelet mean volumeOr dered By: Rohini Ascencio on 06-23-2022 Platelet mean volume (Bld) [Entitic vol] 10.3 fL 6.2-12.0 [facility] Determination of erythrocyte mean corpuscular volume (MCV)Ordered By: Rohini Ascencio on 06-23-2022 MCV (RBC) [Entitic vol] 100.2 fL 80-94 [facility] Direct bilirubinOrdered By: Dr. Porras on 06-23-2022 Bilirubin.direct [Mass/Vol] 0.37 mg/dL 0.00-0.30 [facility] Hematocrit Auto (Bld) [Volum e fraction]Ordered By: Rohini Ascencio on 06-23-2022 Hematocrit (Bld) [Volume fraction] 46.5 % 40-54 [facility] Laboratory - Chemistry and C hemistry - challengeOrdered By: Rohini Ascencio on 06-23-2022 ALP [Catalytic activity/Vol] 76 U/L 45-117 [facility] ALT [Catalytic activity/Vol] 22 U/L 16-61 [facility] CO2 [Moles/Vol] 27.0 mmol/L 21.0-32.0 [facility] Globulin (S) [Mass/Vol] 3.5 g/dL 2.2-4.2 [facility] Urea nitrogen/Creatinine [Mass ratio] 12.9 mg/mg 10-20 [facility] Laboratory - Hematology and Cell countsOrdered By: Rohini Ascencio on 06-23-2022 Erythrocyte distribution width (RBC) [Entitic vol] 49.8 fL 35.1-43.9 [facility] Erythrocyte distribution width (RBC) [Ratio] 13.4 % 11.6-14.6 [facility] Immature granulocytes/100 WBC (Bld) 0.400 % 0.0-0.9 [facility] Comment on above: IG% - Immature Granu locytes (promyelocytes, myelocytes and metamyelocytes) > 1% indicates that a LEFT SHIFT is Present. MCH (RBC) [Entitic mass] 34.1 pg 27.0-32.0 [facility] Nucleated RBC/100 WBC (Bld) [Ratio] 0 % 0-5 [facility] MCHC Auto (RBC) [Mass/Vol]Or dered By: Rohini Ascencio on 06-23-2022 MCHC (RBC) [Mass/Vol] 34.0 g/dL 32-36 [facility] No Panel InformationOrdered By: Rohini Ascencio on 06-23-2022 Estimated GFR (MDRD) Amer 59 mL/min >60 [facility] Comment on above: GFR Calc Estimated GFR (MDRD) Non-Af Amer 49 mL/min >60 [facility] Comment on above: Non- GFR Calc Platelets bldOrdered By: Jose Ascencio on 06-23-2022 Platelets (Bld) [#/Vol] 135 10*3/uL 150-450 [facility] Serum or plasma albumin norman urement (mass/volume)Ordered By: Rohini Ascencio on 06-23-2022 Albumin [Mass/Vol] 4.1 g/dL 3.2-5.0 [facility] Serum or plasma albumin/glob ulin mass ratioOrdered By: Rohini Ascencio on 06-23-2022 Albumin/Globulin [Mass ratio] 1.2 {ratio} 0.9-2.4 [facility] Serum or plasma calcium norman urement (mass/volume)Ordered By: Rohini Ascecnio on 06-23-2022 Calcium [Mass/Vol] 9.1 mg/dL 8.5-10.1 [facility] Serum or plasma cholesterol in HDL measurement (mass/volume)Ordered By: Dr. Porras on 06-23-2022 Cholesterol in HDL [Mass/Vol] 40 mg/dL >40 [facility] Comment on above: The drugs N-Acetylcy steine and Metamizole may falsely depress this assay. Reference Range HDL <40 mg/dL Low HDL Cholesterol HDL >or= 60 mg/dL High HDL Cholesterol Serum or plasma cholesterol in VLDL measurement (mass/volume)Ordered By: Dr. Porras on 06-23-2022 Cholesterol in VLDL [Mass/Vol] 17 mg/dL 5-40 [facility] Serum or plasma creatinine m easurement (mass/volume)Ordered By: Rohini Ascencio on 06-23-2022 Creatinine [Mass/Vol] 1.47 mg/dL 0.70-1.30 [facility] Comment on above: The validity of the calculated GFR & GFRAA in patients over 70 years has not been determined. Clinical correlation is essential. Serum or plasma low density lipoprotein (LDL) cholesterol measurement (mass/volume)Ordered By: Dr. Porras on 06-23-2022 Cholesterol in LDL [Mass/Vol] 49 mg/dL 0-130 [facility] Serum or plasma urea nitroge n measurement (mass/volume)Ordered By: Rohini Ascencio on 06-23-2022 Urea nitrogen [Mass/Vol] 19 mg/dL 7-18 [facility] Thin prep Papanicolaou smear with manual screeningOrdered By: Rohini Ascencio on 06-23-2022 Thin prep Papanicolaou smear with manual screening 21 U/L 15-37 [facility] Thin prep Papanicolaou smear with manual screening 3 5-15 [facility] LABORATORYOrdered By: Crista Stephen on 02-18-2022 Albumin DL <= 20 mg/L (U) [Mass/Vol] 1460 mcg/dL Invalid Interpretation Code AO ADM SS Albumin/Creatinine DL <= 20 mg/L (U) [Mass ratio] 6 mcg/mg Invalid Interpretation Code 0 - 30 mcg/mg AO ADM SS Creatinine (U) [Mass/Vol] 263.3 mg/dL Invalid Interpretation Code 39.0 - 259.0 mg/dL AO ADM SS Calcium [Mass/Vol] 9.4 mg/dL Invalid Interpretation Code 8.4 - 10.2 mg/dL AO ADM SS Chloride [Moles/Vol] 103 mmol/L Invalid Interpretation Code 98 - 107 mmol/L AO ADM SS CO2 [Moles/Vol] 29 mmol/L Invalid Interpretation Code 23 - 31 mmol/L AO ADM SS Creatinine [Mass/Vol] 1.36 mg/dL Invalid Interpretation Code 0.70 - 1.30 mg/dL AO ADM SS Electrolyte Balance 7.0 mEq/L Invalid Interpretation Code 4.0 - 15.0 mEq/L AO ADM SS Free T4 [Mass/Vol] 1.04 ng/dL Invalid Interpretation Code 0.76 - 1.46 ng/dL AO ADM SS Glucose [Mass/Vol] 101 mg/dL Invalid Interpretation Code 83 - 110 mg/dL AO ADM SS Potassium [Moles/Vol] 5.1 mmol/L Invalid Interpretation Code 3.5 - 5.1 mmol/L AO ADM SS Sodium [Moles/Vol] 139 mmol/L Invalid Interpretation Code 136 - 145 mmol/L AO ADM SS TSH Qn 1.47 m[IU]/L Invalid Interpretation Code 0.36 - 3.74 mcIU/mL AO ADM SS Urea nitrogen [Mass/Vol] 21 mg/dL Invalid Interpretation Code 7 - 18 mg/dL AO ADM SS Urea nitrogen/Creatinine [Mass ratio] 15 ratio Invalid Interpretation Code 7 - 27 ratio AO ADM SS Uric Acid Lvl 7.3 mg/dL Invalid Interpretation Code 3.5 - 7.2 mg/dL AO ADM SS Vit. D 25-Hydroxy 41.8 ng/mL Invalid Interpretation Code AO ADM SS LABORATORYOrdered By: Roney David on 02-18-2022 Basophil, Absolute 0.1 103/mcL Invalid Interpretation Code 0.0 - 0.2 10^3/mcL AO Workflow SS Basophils/100 WBC (Bld) 1.2 % Invalid Interpretation Code 0.0 - 2.5 % AO Workflow SS Eosinophil, Absolute 0.1 103/mcL Invalid Interpretation Code 0.0 - 0.4 10^3/mcL AO Workflow SS Eosinophils/100 WBC (Bld) 2.0 % Invalid Interpretation Code 0.0 - 7.0 % AO Workflow SS Erythrocyte distribution width (RBC) [Ratio] 14.0 % Invalid Interpretation Code 11.5 - 14.5 % AO Workflow SS Hematocrit (Bld) [Volume fraction] 44.3 % Invalid Interpretation Code 42.0 - 52.0 % AO Workflow SS Hemoglobin (Bld) [Mass/Vol] 15.2 G/dL Invalid Interpretation Code 14.0 - 18.0 G/dL AO Workflow SS Lymphocyte, Absolute 0.9 103/mcL Invalid Interpretation Code 0.8 - 3.9 10^3/mcL AO Workflow SS Lymphocytes/100 WBC (Bld) 12.6 % Invalid Interpretation Code 10.0 - 50.0 % AO Workflow SS MCH (RBC) [Entitic mass] 33.6 pg Invalid Interpretation Code 27.0 - 31.2 pg AO Workflow SS MCHC 34.2 G/dL Invalid Interpretation Code 31.8 - 35.4 G/dL AO Workflow SS MCV (RBC) [Entitic vol] 98.3 fL Invalid Interpretation Code 80.0 - 94.0 fL AO Workflow SS Monocyte, Absolute 0.8 103/mcL Invalid Interpretation Code 0.2 - 1.0 10^3/mcL AO Workflow SS Monocytes/100 WBC (Bld) 11.1 % Invalid Interpretation Code 1.7 - 13.0 % AO Workflow SS Neutrophil, Absolute 5.5 103/mcL Invalid Interpretation Code 2.9 - 6.2 10^3/mcL AO Workflow SS Neutrophils/100 WBC (Bld) 73.1 % Invalid Interpretation Code 37.0 - 80.0 % AO Workflow SS Platelet mean volume (Bld) [Entitic vol] 8.5 fL Invalid Interpretation Code 7.4 - 10.4 fL AO Workflow SS Platelets (Bld) [#/Vol] 141 103/mcL Invalid Interpretation Code 130 - 400 10^3/mcL AO Workflow SS RBC (Bld) [#/Vol] 4.51 106/mcL Invalid Interpretation Code 4.04 - 6.13 10^6/mcL AO Workflow SS WBC (Bld) [#/Vol] 7.5 103/mcL Invalid Interpretation Code 4.6 - 10.8 10^3/mcL AO Workflow SS LABORATORYOrdered By: SYSTEM SYSTEM on 02-18-2022 GFR 61 ml/min/1.73sqm Invalid Interpretation Code AO Chemistry S GFR Non- 50 ml/min/1.73sqm Invalid Interpretation Code AO Chemistry S Basophil percentageon 2021 Bilirubin [Mass/Vol] 2.30 mg/dL 0.20-1.00 [facility] Work Phone: Comment on above: For patients on eltr ombopag therapy, use of Dimension [place] TBIL is not recommended. Cholesterol [Mass/Vol] 114 mg/dL <200 [facility] Work Phone: Comment on above: <200 mg/dL Desirable 200-240 mg/dL Borderline >240 mg/dL High Risk Protein [Mass/Vol] 7.6 g/dL 6.4-8.2 [facility] Work Phone: Triglyceride [Mass/Vol] 57 mg/dL <199 [facility] Work Phone: Comment on above: The drugs N-Acetylcy steine and Metamizole may falsely depress this assay.Serum Triglycerides Reference Interval Normal <150 mg/dL Borderline high 150 - 199 mg/dL High 200 - 499 mg/dL Very High > or = 500 mg/dL Direct bilirubinon 2 Bilirubin.direct [Mass/Vol] 0.45 mg/dL 0.00-0.30 [facility] Work Phone: Laboratory - Chemistry and C hemistry - challengeon 12-23-2021 ALP [Catalytic activity/Vol] 93 U/L 45-117 [facility] Work Phone: ALT [Catalytic activity/Vol] 26 U/L 16-61 [facility] Work Phone: Globulin (S) [Mass/Vol] 3.4 g/dL 2.2-4.2 [facility] Work Phone: Serum or plasma albumin norman urement (mass/volume)on 12-23-2021 Albumin [Mass/Vol] 4.2 g/dL 3.2-5.0 [facility] Work Phone: Serum or plasma cholesterol in HDL measurement (mass/volume)on 12-23-2021 Cholesterol in HDL [Mass/Vol] 53 mg/dL >40 [facility] Work Phone: Comment on above: The drugs N-Acetylcy steine and Metamizole may falsely depress this assay. Reference Range HDL <40 mg/dL Low HDL Cholesterol HDL >or= 60 mg/dL High HDL Cholesterol Serum or plasma cholesterol in VLDL measurement (mass/volume)on 12-23-2021 Cholesterol in VLDL [Mass/Vol] 11 mg/dL 5-40 [facility] Work Phone: Serum or plasma low density lipoprotein (LDL) cholesterol measurement (mass/volume)on 12-23-2021 Cholesterol in LDL [Mass/Vol] 50 mg/dL 0-130 [facility] Work Phone: Thin prep Papanicolaou smear with manual screeningon 12-23-2021 Thin prep Papanicolaou smear with manual screening 22 U/L 15-37 [facility] Work Phone: LABORATORYOrdered By: Crista Armstrong on 06-05-2021 Albumin BCP dye [Mass/Vol] 4.6 G/dL Invalid Interpretation Code 3.4 - 4.8 G/dL AO ADM SS Albumin/Globulin [Mass ratio] 1.6 {ratio} Invalid Interpretation Code 1.1 - 2.5 ratio AO ADM SS ALP [Catalytic activity/Vol] 82 U/L Invalid Interpretation Code 40 - 135 U/L AO ADM SS ALT With P-5'-P [Catalytic activity/Vol] 24 U/L Invalid Interpretation Code 16 - 63 U/L AO ADM SS AST With P-5'-P [Catalytic activity/Vol] 22 U/L Invalid Interpretation Code 10 - 40 U/L AO ADM SS Bilirubin [Mass/Vol] 3.1 mg/dL Invalid Interpretation Code 0.2 - 1.0 mg/dL AO ADM SS Calcium [Mass/Vol] 9.2 mg/dL Invalid Interpretation Code 8.4 - 10.2 mg/dL AO ADM SS Chloride [Moles/Vol] 102 mmol/L Invalid Interpretation Code 98 - 107 mmol/L AO ADM SS Cholesterol [Mass/Vol] 102 mg/dL Invalid Interpretation Code 0 - 200 mg/dL AO ADM SS Cholesterol in HDL [Mass/Vol] 50 mg/dL Invalid Interpretation Code 40 - 60 mg/dL AO ADM SS Cholesterol in LDL [Mass/Vol] 40 mg/dL Invalid Interpretation Code 0 - 130 mg/dL AO ADM SS CO2 [Moles/Vol] 24 mmol/L Invalid Interpretation Code 23 - 31 mmol/L AO ADM SS Creatinine [Mass/Vol] 1.49 mg/dL Invalid Interpretation Code 0.70 - 1.30 mg/dL AO ADM SS Electrolyte Balance 14.0 mEq/L Invalid Interpretation Code 4.0 - 15.0 mEq/L AO ADM SS Globulin 2.8 G/dL Invalid Interpretation Code AO ADM SS Glucose [Mass/Vol] 102 mg/dL Invalid Interpretation Code 83 - 110 mg/dL AO ADM SS Potassium [Moles/Vol] 4.0 mmol/L Invalid Interpretation Code 3.5 - 5.1 mmol/L AO ADM SS Protein [Mass/Vol] 7.4 G/dL Invalid Interpretation Code 6.4 - 8.2 G/dL AO ADM SS Sodium [Moles/Vol] 140 mmol/L Invalid Interpretation Code 136 - 145 mmol/L AO ADM SS Triglyceride [Mass/Vol] 60 mg/dL Invalid Interpretation Code 0 - 150 mg/dL AO ADM SS Urea nitrogen [Mass/Vol] 24 mg/dL Invalid Interpretation Code 7 - 18 mg/dL AO ADM SS Urea nitrogen/Creatinine [Mass ratio] 16 ratio Invalid Interpretation Code 7 - 27 ratio AO ADM SS LABORATORYOrdered By: Cindi Rose on 06-05-2021 Basophil, Absolute 0.10 103/mcL Invalid Interpretation Code 0.00 - 0.19 10^3/mcL AO Auto Heme SS Basophils/100 WBC (Bld) 0.9 % Invalid Interpretation Code 0.0 - 2.5 % AO Auto Heme SS Eosinophil, Absolute 0.20 103/mcL Invalid Interpretation Code 0.00 - 0.40 10^3/mcL AO Auto Heme SS Eosinophils/100 WBC (Bld) 2.3 % Invalid Interpretation Code 0.0 - 7.0 % AO Auto Heme SS Erythrocyte distribution width (RBC) [Ratio] 13.8 % Invalid Interpretation Code 11.5 - 14.5 % AO Auto Heme SS Hematocrit (Bld) [Volume fraction] 41.4 % Invalid Interpretation Code 42.0 - 52.0 % AO Auto Heme SS Hemoglobin (Bld) [Mass/Vol] 14.0 G/dL Invalid Interpretation Code 14.0 - 18.0 G/dL AO Auto Heme SS Lymphocyte, Absolute 1.20 103/mcL Invalid Interpretation Code 0.77 - 3.85 10^3/mcL AO Auto Heme SS Lymphocytes/100 WBC (Bld) 15.2 % Invalid Interpretation Code 10.0 - 50.0 % AO Auto Heme SS MCH (RBC) [Entitic mass] 33.1 pg Invalid Interpretation Code 27.0 - 31.2 pg AO Auto Heme SS MCHC (RBC) [Mass/Vol] 33.9 G/dL Invalid Interpretation Code 31.8 - 35.4 G/dL AO Auto Heme SS MCV (RBC) [Entitic vol] 97.6 fL Invalid Interpretation Code 80.0 - 94.0 fL AO Auto Heme SS Monocyte, Absolute 1.00 103/mcL Invalid Interpretation Code 0.15 - 1.00 10^3/mcL AO Auto Heme SS Monocytes/100 WBC (Bld) 12.6 % Invalid Interpretation Code 1.7 - 13.0 % AO Auto Heme SS Neutrophil, Absolute 5.50 103/mcL Invalid Interpretation Code 2.85 - 6.16 10^3/mcL AO Auto Heme SS Neutrophils/100 WBC (Bld) 69.0 % Invalid Interpretation Code 37.0 - 80.0 % AO Auto Heme SS Platelet mean volume (Bld) [Entitic vol] 8.6 fL Invalid Interpretation Code 7.4 - 10.4 fL AO Auto Heme SS Platelets (Bld) [#/Vol] 149 103/mcL Invalid Interpretation Code 130 - 400 10^3/mcL AO Auto Heme SS RBC (Bld) [#/Vol] 4.24 106/mcL Invalid Interpretation Code 4.04 - 6.13 10^6/mcL AO Auto Heme SS WBC (Bld) [#/Vol] 7.90 103/mcL Invalid Interpretation Code 4.60 - 10.80 10^3/mcL AO Auto Heme SS LABORATORYOrdered By: SYSTEM SYSTEM on 06-05-2021 GFR 55 ml/min/1.73sqm Invalid Interpretation Code AO Chemistry S GFR Non- 45 ml/min/1.73sqm Invalid Interpretation Code AO Chemistry S Vital Signs Date Time Vital Sign Value Performing Clinician Vandana cobb 10-31-2024 09:13-0400 Body height 180.[address] Hansel Solis DO Work Phone: [facility] 10-31-2024 09:13-0400 Body mass index (BMI) [Ratio] 24.8 kg/m2 Dr. Hansel Solis DO Work Phone: [facility] 10-31-2024 09:13-0400 Body weight 80.[address] Hansel Solis DO Work Phone: [facility] 10-31-2024 09:13-0400 Diastolic blood pressure 87 mm[Hg] Dr. Hansel Solis DO Work Phone: [facility] 10-31-2024 09:13-0400 Heart rate 61 /min Dr. Hansel Solis DO Work Phone: [facility] 10-31-2024 09:13-0400 Respiratory rate 18 /min Dr. Hansel Solis DO Work Phone: [facility] 10-31-2024 09:13-0400 Systolic blood pressure 133 mm[Hg] Dr. Hansel Solis DO Work Phone: [facility] 07-27-2024 08:47-0400 Body height 180.[address] Hansel Solis DO Work Phone: [facility] 07-27-2024 08:47-0400 Body mass index (BMI) [Ratio] 25.2 kg/m2 Dr. Hansel Solis DO Work Phone: [facility] 07-27-2024 08:47-0400 Body weight 82.[address] Hansel Solis DO Work Phone: [facility] 07-27-2024 08:47-0400 Diastolic blood pressure 91 mm[Hg] Dr. Hansel Solis DO Work Phone: [facility] 07-27-2024 08:47-0400 Heart rate 65 /min Dr. Hansel Solis DO Work Phone: [facility] 07-27-2024 08:47-0400 Respiratory rate 20 /min Dr. Hansel Solis DO Work Phone: [facility] 07-27-2024 08:47-0400 Systolic blood pressure 137 mm[Hg] Dr. Hansel Solis DO Work Phone: [facility] 06-23-2022 08:48-0400 Body height 180.34 cm No Primary Care Physician [facility] 06-23-2022 08:48-0400 Body mass index (BMI) [Ratio] 26.4 kg/m2 No Primary Care Physician [facility] 06-23-2022 08:48-0400 Body weight 86.18 kg No Primary Care Physician [facility] 06-23-2022 08:48-0400 Diastolic blood pressure 75 mm[Hg] No Primary Care Physician [facility] 06-23-2022 08:48-0400 Heart rate 52 /min No Primary Care Physician [facility] 06-23-2022 08:48-0400 Respiratory rate 18 /min No Primary Care Physician [facility] 06-23-2022 08:48-0400 SaO2% (BldA) [Mass fraction] 95 % No Primary Care Physician [facility] 06-23-2022 08:48-0400 Systolic blood pressure 122 mm[Hg] No Primary Care Physician [facility] 12-23-2021 08:15-0400 Body height 180.[address] Loren Brunson Work Phone: [facility] Work Phone: 12-23-2021 08:15-0400 Body mass index (BMI) [Ratio] 25.5 kg/m2 Dr. Loren Brunson Work Phone: [facility] Work Phone: 12-23-2021 08:15-0400 Body weight [address] Loren Brunson Work Phone: [facility] Work Phone: 12-23-2021 08:15-0400 Diastolic blood pressure 82 mm[Hg] Dr. Loren Brunson Work Phone: [facility] Work Phone: 12-23-2021 08:15-0400 Heart rate 82 /min Dr. Loren Brunson Work Phone: [facility] Work Phone: 12-23-2021 08:15-0400 Respiratory rate 16 /min Dr. Loren Brunson Work Phone: [facility] Work Phone: 12-23-2021 08:15-0400 SaO2% (BldA) [Mass fraction] 98 % Dr. Loren Brunson Work Phone: [facility] Work Phone: 12-23-2021 08:15-0400 Systolic blood pressure 104 mm[Hg] Dr. Loren Brunson Work Phone: [facility] Work Phone: Encounters Encounter Date Encounter Type Care Provider Facility Start: 12-18-2024 ambulatory Jose Avileznella Facili ty:[facility] Start: 12-15-2024 [facility] Start: 11-29-2024 End: 11-29-2024 ambulatory Jose Avileznella Facility:[facility] Start: 10-31-2024 Encounter for preprocedural cardiovascular examination Rohini BOND [facility] Start: 10-31-[address] Carolina Solis DO Work Phone: [facility] Comment on above: Right Shoulder surge ry-not scheduled Start: 10-31-2024 End: 10-31-2024 Patient encounter procedure Rohini BOND -[facility] Work Phone: Start: 10-31-2024 End: 10-31-[address] Hansel Solis DO Work Phone: -[facility] Start: 09-20-2024 End: 09-20-[address] Hansel Solis DO Work Phone: -[facility] Start: 09-20-2024 End: 09-20-[address] Pastor Porras MD -[facility] Work Phone: Start: 09-07-2024 End: 09-07-2024 ambulatory HANSEL SOLIS DO Facility:[facility] Start: 09-07-2024 End: 09-07-2024 Patient encounter procedure HANSEL SOLIS DO [facility] Start: 08-09-2024 End: 08-09-[address] Hansel Solis DO Work Phone: [facility] Work Phone: Start: 08-09-2024 End: 08-09-[address] Pastor Porras MD -[facility] Work Phone: Start: 07-27-2024 End: 07-27-[address] Pastor Porras MD -[facility] Work Phone: Start: 07-27-2024 End: 07-27-2024 ambulatory Hansel Solis Facility:[facility] Start: 06-16-2024 End: 06-16-2024 ambulatory Pastor Porras Facility:[facility] Start: 06-16-2024 End: 06-16-[address] Pastor Porras MD -[facility] Work Phone: Start: 05-09-2024 End: 05-09-2024 ambulatory Hansel Solis Facility:[facility] Start: 05-02-2024 End: 05-06-2024 ambulatory HANSEL E SOLIS DO Facility:[facility] Start: 05-02-2024 End: 05-06-2024 Outreach Lab HANSEL E SOLIS DO [facility] Start: 03-27-2024 End: 03-27-2024 ambulatory Hansel Solis Facility:[facility] Start: 03-15-2024 End: 03-15-2024 ambulatory Hansel Solis Facility:[facility] Start: 03-15-2024 ambulatory Hansel Solis Facility: [facility] Start: 03-15-2024 End: 03-15-2024 ambulatory Hansel Solis Facility:[facility] Start: 03-07-2024 End: 03-11-2024 ambulatory HANSEL E SOLIS DO Facility:[facility] Start: 03-07-2024 End: 03-11-2024 Encounter for general adult medical examination without abnormal findings HANSEL E SOLIS DO Facility:[facility] Start: 03-07-2024 End: 03-11-2024 Outreach Lab HANSEL E SOLIS DO [facility] Start: 02-29-2024 End: 02-29-2024 ambulatory HANSEL E SOLIS DO Facility:[facility] Start: 02-29-2024 End: 02-29-2024 Patient encounter procedure HANSEL HECKINS DO [facility] Start: 02-21-2024 End: 02-21-2024 ambulatory Hansel Heckins Facility:[facility] Start: 02-12-2024 End: 02-12-2024 ambulatory Hansel Heckins Facility:[facility] Start: 08-31-2023 End: 08-31-2023 ambulatory HANSEL SOLIS DO Facility:[facility] Start: 07-15-2023 End: 09-10-2023 ambulatory JERZY BOND Facility:[facility] Start: 07-15-2023 End: 09-10-2023 Physical therapy management JERZY BOND [facility] Start: 06-18-2023 End: 06-18-2023 ambulatory PAPI DUBON APRN-FRENCH PASTRY COOK Facility:[facility] Start: 06-18-2023 End: 06-18-2023 Patient encounter procedure PAPI DUBON APRN-FRENCH PASTRY COOK [facility] Start: 03-01-2023 End: 03-01-2023 ambulatory HANSEL HECKINS Facility:[facility] Start: 03-01-2023 End: 03-01-2023 Patient encounter procedure HANSEL HECKINS DO [facility] Start: 10-13-2022 End: 10-13-2022 ambulatory HANSEL SOLIS DO Facility:[facility] Start: 10-13-2022 End: 10-13-2022 Patient encounter procedure HANSEL HECKINS DO [facility] Start: 07-30-2022 End: 07-30-2022 Patient encounter procedure SIMI GARG PA-C [facility] Start: 06-24-2022 End: 06-24-2022 Patient encounter procedure No Primary Care Physician [facility] Start: 06-23-2022 End: 06-23-2022 ambulatory No Primary Care Physician [facility] Work Phone: Start: 06-23-2022 End: 06-23-2022 Patient encounter procedure No Primary Care Physician [facility] Start: 03-17-2022 End: 03-17-2022 Patient encounter procedure HANSEL SOLIS DO [facility] Start: 02-18-2022 End: 02-18-2022 Patient encounter procedure HANSEL SOLIS DO [facility] Start: 02-18-2022 End: 02-18-2022 Well adult monitoring check done HANSEL SOLIS DO [facility] Start: 12-23-2021 End: 12-23-[address] Loren Brunson Work Phone: [facility] Work Phone: Start: 12-23-2021 End: 12-23-[address] Loren Brunson Work Phone: [facility] Start: 11-12-2021 End: 11-12-[address] Loren Brunson Work Phone: [facility] Start: 06-05-2021 End: 06-05-2021 Patient encounter procedure LOREN BRUNSON MD [facility] Start: 03-12-2021 End: 03-12-2021 Patient encounter procedure LOREN BRUNSON MD [facility] Start: 02-17-2021 End: 02-17-2021 Patient encounter procedure LOREN BRUNSON MD [facility] Procedures Date Procedure Procedure Detail Performing Clinician Start: 12-25-2020 Echocardiography HANSEL SOLIS DO Comment on above: Echocardiogram 2020 Normal LV size Left ventricular systolic function is normal Estimated ejection fraction is 53% Mild-moderate 1 2+ eccentric mitral valve insufficiency Stage III diastolic dysfunction Left atrium is moderately enlarged The right atrium is mildly enlarged Start: 05-09-2020 Pacemaker battery (p hysical object) LOREN BRUNSON MD Start: 05-11-2019 Valves of heart and adjacent structures operations LOREN BRUNSON MD Comment on above: ,itral and aortic va lves repleced 04/2019 Start: 10-21-2018 Catheterization LOREN BRUNSON MD Start: 07-01-2016 Aortic aneurysm screening LOREN BRUNSON MD Comment on above: Normal AOH Start: 10-16-2013 Basal cell carcinoma of neck (disorder) LOREN BRUNSON MD Comment on above: Dr La Start: 03-29-2010 Procedure on heart ANDR SAÚL BRUNSON MD Comment on above: heart cath Start: 12-02-2007 Colonoscopy LOREN FLORES MD Comment on above: normal, Dr Jacobsen Start: 05-05-2006 Cystoscopy LOREN FLORES MD Comment on above: stent placement, Dr Vo Start: 04-30-2006 Lithotripsy of bladd er calculus LOREN BRUNSON MD Comment on above: Dr Vo Start: 07-17-2005 History of coronary artery bypass grafting H/O coronary artery bypass surgery Rohini BOND Comment on above: ESTRELLA-LAD w/ AVR 07/17, Start: 07-17-2005 Valves of heart and adjacent structures operations LOREN BRUNSON MD Start: 03-29-1992 Incision of ureter ANDR SAÚL BRUNSON MD Start: 03-29-1984 Circumcision LOREN FLORES MD Start: 03-29-1964 Entitic (property) (qualifier value) LOREN BRUNSON MD Comment on above: stapes surgery Cholecystectomy LOREN WHYTE MD History of coronary artery bypass grafting S/P CABG (coronary artery bypass graft) SIMI GARG PA-C Plan of Treatment Date Care Activity Detail Author Start: 10-31-2024 Evaluation of [facility] study results [facility] Immunizations Immunization Date Immunization Notes Care Provider [facility] 01-05-2024 SARS-CoV-2 (COVID-19 ) [id number] HANSEL SOLIS DO [facility] 01-11-2023 SARS-CoV-2 (COVID-19 ) mRNA-[id number] PPAI DUBON PRECISION LENS GENERATOR-FRENCH PASTRY COOK [facility] 02-09-2022 SARS-CoV-2 (CV19)mRNA-1273 bivalent vac HANSEL SOLIS DO [facility] 02-09-2022 SARSCoV2 (CV19)mRNA-1273(6y+ bival ruddy HANSEL SOLIS DO [facility] 08-19-2021 zoster vaccine recombinant HANSEL SOLIS DO [facility] 07-09-2021 SARS-CoV-2 mRNA (fgnyioblasz-puwe-wpapnl e) vaccine HANSEL SOLIS DO [facility] 06-09-2021 zoster vaccine recombinant HANSEL SOLIS DO [facility] 12-30-2020 SARS-CoV-2 mRNA (tozinameran) vaccine LOREN BRUNSON MD [facility] Comment on above: Result Comment: 2021: TPV80 07-18-2020 SARS-CoV-2 mRNA (tozinameran) vaccine LOREN BRUNSON MD [facility] 06-27-2020 SARS-CoV-2 mRNA (tozinameran) vaccine LOREN BRUNSON MD [facility] 06-24-2016 pneumococcal conjuga te vaccine, 13 valent LOREN BRUNSON MD [facility] 05-19-2016 tetanus toxoid, redu serjio diphtheria toxoid, and acellular pertussis vaccine, adsorbed LOREN BRUNSON MD [facility] 04-29-2016 tetanus toxoid, redu serjio diphtheria toxoid, and acellular pertussis vaccine, adsorbed LOREN BRUNSON MD [facility] 11-01-2014 tetanus toxoid, redu serjio diphtheria toxoid, and acellular pertussis vaccine, adsorbed LOREN BRUNSON MD [facility] 04-14-2010 zoster vaccine recombinant LOREN BRUNSON MD [facility] 11-17-2006 pneumococcal polysaccharide vaccine, 23 valent LOREN BRUNSON MD [facility] Payers Date Payer Category Payer Self-pay [id number] 2022 Private Health Insurance [id number] 2022 Unknown [id number] 2017 Medicare [id number] 2005 Medicare [id number] 2005 Unknown [id number] 1940 Unknown [id number] 2.16.8 40.1.204009.3.579.2.627 1940 Unknown [id number] 2.16.8 40.1.862135.3.579.2.627 1940 Unknown [id number] 2.16.8 40.1.616426.3.579.2.627 1940 Unknown [id number] 2.16.8 40.1.440286.3.579.2.627 1940 Unknown [id number] 2.16.8 40.1.024331.3.579.2.627 1940 Unknown [id number] 2.16.8 40.1.986257.3.579.2.627 1940 Unknown [id number] 2.16. 840.1.090391.3.579.2.627 1940 Unknown [id number] 2.16.8 40.1.804401.3.579.2.627 1940 Unknown [id number] 2.16.8 40.1.746725.3.579.2.627 1940 Unknown [id number] 2.16.8 40.1.030936.3.579.2.627 Unknown [id number] .16.8 40.1.133859.3.579.2.462 Unknown [id number] 2.16.8 40.1.835829.3.579.2.462 Unknown [id number] 2.16.8 40.1.007903.3.579.2.462 Unknown [id number] 2.16. 40.1.345354.3.579.2.462 Unknown [id number] 2.16.8 40.1.575620.3.579.2.462 Unknown [id number] 2.16.8 40.1.408685.3.579.2.462 Unknown [id number] 2.16.8 40.1.997540.3.579.2.462 Unknown [id number] 2.16.8 40.1.852168.3.579.2.462 Unknown [id number] 2.16.8 40.1.183425.3.579.2.462 Unknown [id number] 2.16.8 40.1.936946.3.579.2.462 Unknown [id number] 2.16.8 40.1.468908.3.579.2.462 Unknown [id number] 2.16.8 40.1.701872.3.579.2.462 Unknown [id number] 2.16.8 40.1.557247.3.579.2.462 Unknown [id number] 2.16.8 40.1.724465.3.579.2.462 Unknown [id number] 2.16.8 40.1.859320.3.579.2.462 Unknown [id number] 2.16.8 40.1.262458.3.579.2.462 Unknown [id number] 2.16.8 40.1.237550.3.579.2.462 Social History Date Type Detail Facility Start: 10-25-2018 End: 07-27-2024 Ex-smoker (finding) [facility] Start: 1940 Sex Assigned At Male [facility] Start: 12-23-2021 End: 06-23-2022 Tobacco smoking status NHIS Unknown if ever smoked [facility] Start: 04-16-2020 Non-smoker [facility] Sexual Orientation [facility] Start: 06-01-2019 Sex Male (finding) [place] Functional Status Date Assessment Result Facility 07-15-2023 Functional Status Home Living Ad ditional Information OBJECTIVE Vitals: automatic BP 120/78 Posture: forward head posture Gait: no AD, no deficits Transfers: WFL Sensation: no abnormalities with light touch Edema: none Palpation: tenderness reported with gross palpation of shoulder Cervical ROM: WFL Shoulder ROM: marked limitation of RUE - R flexion 45deg, R abduction 45deg, functional IR WFL, functional ER WFL with pain ; LUE WFL all planes PROM: marked guarding, unable to assess fully Functional assessment - coat donning, marked use of LUE and RUE at side dangling Special Tests Park et al:RTC Painful Arc: pos Drop Arm: neg, but marked limitation due to pain Infraspinatus Test: pain Belly press (subscap): pain [facility] Clinical Notes 07-17-2005 to 10-31-2024 Note Date & Type Note Facility 10-31-2024 Progress note [facility] 10-31-2024 Progress note Note Date/Time October 31, 2024 9:55am [facility] [address] [place] [address] OFFICE VISIT Date of Service: 10/31/24 MR#: [id number] Acct: [id number] Name: SRIDHAR GUZMAN Rep #: [id number] : 1940 Provider: RONDA Erazo Age/Sex: 84/M Location: [facility] Status: Signed HPI HPI History of Present Illness Details: Sridhar Guzman is an 84 year-old man with a history of coronary artery disease with history of bypass surgery. He had an ESTRELLA to the LAD. 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 In September 2018 he underwent a heart catheterization which demonstrated an ejection fraction of 60%. Tortuous aorta with possible aneurysm, left main mild calcification, LAD occluded, diagonal mid mild luminal irregularities, circumflex apparent circumflex with RCA artery at 80% mid segment stenosis, mid RCA less than 30% stenosis, ESTRELLA to LAD patent. Prosthetic valve with stenosis with mean gradient of 48 mmHg by echocardiogram. An aortic root aneurysm was noted and he was referred to the [facility]. In Apr, He underwent axillary cannulation with a 10 mm Dacron side graft, redo median sternotomy, aortic valve replacement and root replacement with a 27 mm Enoc Abel valve, a 30 mm Gelweave Valsalva valve, reimplantation of the coronary arteries, mitral valve repair with a 29 mm Durandband, and chelsy-arch replacement with a 30 mm Gelweave graft. Postoperatively hedid well with an episode of atrial fibrillation and junctional rhythm and some kidney injury. In June of 2019 he presented to the hospital with headache and a supratherapeutic INR of 7.5. 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 He was transferred to the [facility] and was managed conservatively with INR reversal and the hematoma was noted to be stable on repeat CT. Cardiology was consulted and made the decision to continue holding aspirin and Coumadin. He was subsequently discharged in mid June. At the time of his discharge it appears that his EKG showed atrial flutter and there was a question about the need for Eliquis and ora ROCCO cardioversion. He was cleared for a cardioversion by both neurology and hematology. He was started on Eliquis. However day of cardioversion he was noted to have a heart rate of 48. He did have a Holter monitor done which demonstrated 48-hour period of atrial fibrillation/flutter. Average heart rate 53 bpm, minimum heart rate 34 bpm, maximum heart rate 122 bpm. Longest R to R was 1.9 seconds. Because of his low heart rate it was recommended that he undergo a Micra pacemaker placement. This was done in April 2020. Patient had a pharmacologic stress test in February 2024 which was negative for ischemia. Echocardiogram did demonstrate a decreased in his ejection fraction to 40%. Valve was stable. He was started on Spirolactone, he notes he did not tolerate this d/t GI issues. He did not start the jardiance d/t cost. We attempted to start Entresto, this was also not started d/t cost. Sometimes he feels that he is more SOB than he should be. This is not new. He is very [place], does have some memory issues and lives by himself. He is considering surgery on his shoulder. We did clear him for surgery. Preliminary EKG today demonstrates Afib with PVCs. Intake Vital Signs 07/27/24 08:47 10/31/24 09:13 Height 5 ft 11 in 5 ft 11 in Weight: 181 lb 178 lb BMI 25.2 24.8 BP 137/91 H 133/87 H Blood Pressure Location Lt brachial Lt brachial Position Sitting Sitting Respiration 20 H 18 Pulse 65 61 Pulse Source NIBP NIBP Intake Visit Reasons: 3 M [employer]U [employer] Required: No Is patient in pain?: No Allergies Penicillins Allergy (Intermediate, Verified 10/31/24 09:17) rash sulfamethoxazole (From Bactrim) Allergy (Intermediate, Verified 10/31/24 09:17) rash trimethoprim (From Bactrim) Allergy (Intermediate, Verified 10/31/24 09:17) rash animal dander Allergy (Unknown, Verified 10/31/24 09:17) Ears plug up grass pollen Allergy (Unknown, Verified 10/31/24 09:17) plugs ears up lidocaine Allergy (Unknown, Verified 10/31/24 09:17) unknown oxycodone (From Percocet) Adverse Reaction (Intermediate, Verified 10/31/24 09:17) GI upset spironolactone Adverse Reaction (Intermediate, Verified 10/31/24 09:17) Diarrhea egg Adverse Reaction (Verified 10/31/24 09:17) Ears plug up, can't hear Medications ?Medication ?Instructions ?Recorded ?Confirmed ?Type nitroglycerin 0.4 mg sublingual 0.4 mg sublingual Q5-1 5M PRN chest 03/08/23 10/31/24 Rx tablet pain #25 tabs amlodipine 5 mg tablet 5 mg PO DAILY #90 tabs 02/2010/31/24 Rx apixaban 5 mg tablet (Eliquis) 5 mg PO BID #60 tabs 10/31/24 Rx atenolol 25 mg tablet 25 mg PO DAILY #90 tabs 01/2810/31/24 Rx atorvastatin 10 mg tablet 10 mg PO DAILY #90 tabs 12/2110/31/24 Rx clindamycin HCl 300 mg capsule 600 mg PO .COMPLEX PRN 10/31/24 History Ejection fraction %: 40 Have you fallen in the past year?: No Nurse's Note: Stopped entresto due to cost. Spoke with patient. 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 Nonrheumatic mitral (valve) insufficiency Nonrheumatic aortic (valve) stenosis with insufficiency Hx of renal calculi Hyperlipidemia Atherosclerotic heart disease of kashia coronary artery without angina pectoris Surgical History History of placement of leadless cardiac pacemaker (05/09/20) History of aortic root repair (05/11/19) History of mitral valve repair (05/11/19) History of left heart catheterization (10/25/18) History of ear surgery Hx of cholecystectomy H/O coronary artery bypass surgery (07/17/05) Hx of vasectomy Hx of fracture of ankle History of aortic valve replacement with bioprosthetic valve (05/11/19) Family History Mother , age 82 lung problems No problems noted. Father , age 40 ruptured appendix No problems noted. Social History Smoking Status: Former smoker how long ago did patient quit smokin alcohol intake: never substance use type: does not use caffeine: Yes Type: coffee Number of servings: 3 ROS Const Const: Positive for fatigue (Worse in heat) and weakness Eyes Eyes: Negative for change in vision ENT ENT: Negative for dizziness or balance problems Cardio Chest Pain: No Palpitations: No Edema: Bilateral (Mild intermittently) Resp Respiratory: Negative for SOB with activity, SOB at rest or SOB orthopnea\SOB lying down GI GI: Negative nausea or heartburn Musc Musc: Negative for balance problems Neuro Neuro: Positive for weakness; Negative for dizziness, lightheadedness, near syncope or syncope Endo Endo: Positive for fatigue (Worse in heat) Cardiology Exam Const Appearance: cooperative and comfortable Head Head: normal to inspection Eyes General: appearance normal, both eyes and all related structures Neck Neck: no JVD Carotids: Negative bruit Chest Chest inspection: normal inspection of the chest Auscultation: Bilateral: Clear to Auscultation Cardio Rate: regular rate Rhythm: regular rhythm and ectopic beats Heart sounds: S1 normal, S2 normal (Prominent S2 consistent with his prosthetic valve.) and murmur; Negative rub or gallop Murmur: Grade 1/6, early systolic and LLSB GI GI: normal to inspection Neuro General: patient alert and patient oriented x3 Hard of hearing Skin Skin: no rashes or lesions noted Extremities Lower Extremity Edema: None: Bilateral Psych Psychological: normal affect Supplemental Info Supplemental Information Echocardiogram 02/2024: Normal LV size. The left ventricular ejection fraction is 40 %. Mean aortic valve gradient 6 mmHg. Bioprosthetic aortic valve. Contrast injection was performed. ECHOCARDIOGRAM 12/25/2020 Interpretation Summary Normal LV size. Left ventricular systolic function is normal. The estimated ejection fraction is 53 %. Mild-Moderate (1-2+) eccentric mitral valve insufficiency. Stage 3 diastolic dysfunction. The left atrium is moderately enlarged. The right atrium is mildly enlarged. Pharmacologic myocardial perfusion stress test 02/2024: 83-year-old man with a history of coronary artery disease for preop cardiac evaluation Resting EKG demonstrates sinus rhythm with a rate of 64 bpm. Resting blood pressure is 150/72 mmHg. 0.4 mg of regadenoson was infused per usual protocol followed by rapid intravenous saline flush injection. Continuous EKG monitoringwas performed. The maximum heart rate was 91 bpm which was 66% of max impacted heart rate the maximum workload was 1 metabolic equivalent. At rest there were no ST or T wave changes noted to suggest ischemia and at peak infusion nonspecific ST changes were noted which did not meet the criteria for ischemia. No clinical angina is noted. The final blood pressure was 140/74 mmHg. Myocardial perfusion protocol. 11.5 mCi of technetium 99m sestamibi was injected at rest. 0.4 mg of regadenoson was infused per usual protocol. At peak infusion 31.5 mCi of technetium 99m sestamibi was injected stress images were obtained stress and restimages were reconstructed and compared in the short axis vertical long and horizontal long axis. Perfusion SPECT analysis: Review of the stress images demonstrate normal uptake of tracer noted in all areas of the myocardium. Minimal reduction of the apex is noted. The resting images similar demonstrated normal uptake of tracer noted in all areas of the myocardium. Minimal reduction in the apex is noted and a small previous infarctin this area cannot be completely excluded. Conclusion: Normal pharmacologic myocardial perfusion stress test. Cardiothoracic Operative Report 05/11/2019 DIAGNOSIS: Severe aortic stenosis, aortic root ascending aneurysm, focal aortic arch dissection, anomalous origin of the circumflex artery, coronary artery disease, severe mitral regurgitation, chronic diastolic NYHA class 2 heart failure. SURGERY/PROCEDURE: Axillary cannulation with a 10 mm Dacron side graft, redo median sternotomy, AVR/root replacement with a 27 mm CE valve, 30 mm Gelweave Valsalva graft, reimplantation of coronary arteries, mitral valve repair with a29 mm Galvin band, deep hypothermic circulatory arrest, and hemiarch replacementwith a 30 mm Gelweave graft. CARDIAC CATHETERIZATION 10/25/2018 CORONARY ANGIOGRAPHY DOMINANCE:? Left Dominant LEFT HEART ASSESSMENT Left Ventricular Ejection Fraction: by Echo 60 % Tortuous aorta with possible aneurysm LEFT MAIN: Mild calcification, Angiographically normal LEFT ANTERIOR DESCENDING ARTERY: MID LAD: is occluded DIAGONAL 1: Mid - Mild luminal irregularities less than 30% CIRCUMFLEX ARTERY: Aberrant circumflex artery from the right coronary artery with an 80% mid segment stenosis RIGHT CORONARY ARTERY: MID RCA: Mild luminal irregularities less than 30% GRAFTS: ESTRELLA graft to the Mid LAD is patent VALVE FINDINGS: Prosthetic aortic valve with stenosis with a mean gradient of 48 mmHg by echocardiogram AORTIC ROOT: Aneurysm CONCLUSIONS Patent left internal mammary artery to the left anterior descending artery, previously known aberrant circumflex artery with a stenosis noted : Severe prosthetic aortic valve stenosis, ascending aortic aneurysm. RECOMMENDATIONS Surgery consult for Valve Replacement surgery Assessment and Plan Assessment and Plan (1) Longstanding persistent atrial fibrillation: Status: Chronic Plan: He does have a history of longstanding chronic persistent atrial fibrillation. He will continue with his atenolol and eliquis. He is working on getting his eliquis through his PCP. (2) History of placement of leadless cardiac pacemaker: Status: Chronic Comment: - insertion of VVI leadless pacemaker (Micra) 05/09/2020 Plan: He is status post Micra leadless pacemaker insertion. He is RV paced m52%. He will continue with routine pacemaker interrogations. (3) H/O coronary artery bypass surgery: Status: Chronic Comment: ESTRELLA-LAD w/ AVR 07/17/2005, Plan: He is status post coronary artery bypass surgery. He continues to do well he has had no angina the plan is for him to continue the current medical therapy. Pharmacologic nuclear stress test was negative for ischemia in 02/2024. (4) History of aortic valve replacement with bioprosthetic valve: Status: Chronic Comment: CABG x 1 ESTRELLA-LAD and AVR w/ [address] Indra Valve 07/17/2005; Re-Do Sternotomy AVR w/ 27 mm CE valve and 30 mm Gelweave Valsava graft, MVR with a 29 mm Galvin band, reimplantation of coronary arteries 05/11/19 Plan: He is status post aortic valve replacement with a bioprosthetic valve. His lastechocardiogram demonstrated ejection fraction of 40%stable aortic valve was noted. He will continue with antx prophylaxis. (5) History of mitral valve repair: Status: Chronic Comment: MVR with a 29 mm Galvin band 05/11/19 Plan: He does have a history of mitral valve repair. He continues to do well with no heart failure symptomatology. (6) Aortic root aneurysm: Status: Chronic Comment: Focal Aortic Arch Dissection: hemiarch replacement w/ 30 mm Gelweave Valsava graft 05/11/2019 Plan: He did have an aortic root aneurysm which was replaced with a Chelsy arch. His blood pressure has been under good control (7) Essential (primary) hypertension: Status: Chronic Plan: He does have a history of hypertension. His blood pressures under good control.I am attempting to start him on Entresto, will need to continue to follow closely. Cost was an issue last time, he did not let us know. We will send thisto Ye to see if they can assist. (8) Cardiomyopathy: Status: Acute Plan: Patient's EF has decreased from his echocardiogram that was done in 2023. I didattempt to start him on spironolactone, this caused GI upset. Jardiance was tooexpensive. I will try him on Entresto. We will be sending this to [facility] if they can help with cost. He will continue with his current dose of atenolol. Once we have titrated medications we will then repeat an echocardiogram to help reassess LV function and guide of medical therapy. Orders: Orders 12 Lead EKG performed by [facility] Today I25.10 - Atherosclerotic heart disease of kashia coronary artery without angina pectoris, I42.9 - Cardiomyopathy, unspecified, I48.11 - Longstanding persistent atrial fibrillation, Z01.810 - Encounter for preprocedural cardiovascular examination, Z95.0 - Presence of cardiac pacemaker, Z95.1 - Presence of aortocoronary bypass graft Plan Details Follow Up: 3 Months (MMM) Coding Level of Care Code Off vis,est,level 4 Diagnoses Longstanding persistent atrial fibrillation I48.11 History of placement of leadless cardiac pacemaker Z95.0 H/O coronary artery bypass surgery Z95.1 History of aortic valve replacement with bioprosthetic valve Z98.890; Z95.3 History of mitral valve repair Z98.890 Aortic root aneurysm I71.9 Essential (primary) hypertension I10 Cardiomyopathy I42.9 Coding Level of Care Code Off vis,est,level 4 Diagnoses Longstanding persistent atrial fibrillation I48.11 History of placement of leadless cardiac pacemaker Z95.0 H/O coronary artery bypass surgery Z95.1 History of aortic valve replacement with bioprosthetic valve Z98.890; Z95.3 History of mitral valve repair Z98.890 Aortic root aneurysm I71.9 Essential (primary) hypertension I10 Cardiomyopathy I42.9 Clinical Quality Measures Falls Risk Screening/Assistive Devices Have you fallen in the past year?: No Cardiac Ejection fraction %: 40 10/31/24 0955 <Electronically signed by Rohini Tejada> Date _ Rohini BOND Cosigner Signature: Date (if applicable) CC: Dr. Hansel Solis, DO ~ [facility] Work Phone: 1(806) 177-601405-01-2025 Evaluation note* Diagnosis Onset Date Resolution Status Admit Date Cardiomyopathy acute July 27 8:34am History of placement of leadless cardiac pacemaker May 09, 2020 chronic M ay 2024 8:34am Longstanding persistent atrial fibrillation chronic July 27 8:34am Sick sinus syndrome chronic July 272024 8:34am Cardiomyopathy acute July 27 8:35am Aortic root aneurysm chronic July 27, 2024 8:35am Essential (primary) hypertension chronic July 27, 2024 8:35am H/O coronary artery bypass surgery July 17, 2005 chronic July 27, 2024 8:35am History of aortic valve replacement with bioprosthetic valve May 11, 2019 chronic July 27, 2024 8:35am History of mitral valve repair May 11, 2019 chronic July 27 8:35am History of placement of leadless cardiac pacemaker May 09, 2020 chronic M ay 2024 8:35am Longstanding persistent atrial fibrillation chronic July 27 8:35am [facility] Work Phone: 1(868) 316-159705-01-2025 Evaluation note* Diagnosis Onset Date Resolution Status Admit Date Cardiomyopathy acute July 27 8:34am History of placement of leadless cardiac pacemaker May 09, 2020 chronic M ay 2024 8:34am Longstanding persistent atrial fibrillation chronic July 27 8:34am Sick sinus syndrome chronic July 272024 8:34am Cardiomyopathy acute July 27 8:35am Aortic root aneurysm chronic July 27, 2024 8:35am Essential (primary) hypertension chronic July 27, 2024 8:35am H/O coronary artery bypass surgery July 17, 2005 chronic July 27, 2024 8:35am History of aortic valve replacement with bioprosthetic valve May 11, 2019July 27, 2024 8:35am History of mitral valve repair May 11, 2019July 27 8:35am History of placement of leadless cardiac pacemaker May 09, 2020 chronic M ay 2024 8:35am Longstanding persistent atrial fibrillation chronic July 27 8:35am Cardiomyopathy acute October 8:49am Aortic root aneurysm chronic Augu st 2024 8:49am Essential (primary) hypertension chronic October 31, 2024 8:49am H/O coronary artery bypass surgery July 17, 2005 chronic October 31 8:49am History of aortic valve replacement with bioprosthetic valve May 11, 2019October 312024 8:49am History of mitral valve repair May 11, 2019October 31, 2024 8:49am History of placement of leadless cardiac pacemaker May 09, 2020 chronic A ugust 2024 8:49am Longstanding persistent atrial fibrillation chronic October 31, 2024 8:49am [facility] Work Phone: 1(237) 359-599203-22-2024 Note ORIGINAL HISTORY: Fall COMPARISON: 01 July 2019 TECHNIQUE: Routine non-contrast head CT with sagittal and coronal reconstructions This exam was performed according to our departmental dose optimization program, and includes the following measures where applicable: automated exposure control, adjustment of the mAs and/or kVp according to patient size and/or exam, and an iterative reconstruction algorithm. FINDINGS: There are small chronic infarcts in both cerebellar hemispheres. The ventricles and sulci are otherwise normal to mildly enlarged. There are no abnormal intra or extra-axial fluid collection. There is mild irregular decreased attenuation in the cerebral white matter. The calvaria and the bones of the base of the skull are intact. 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 Interpreted by: Mohamud Finney MD Preliminary Report By: Mohamud Finney MD Electronically signed By Mohamud Finney MD Dictated Date: 06/18/2023 3:05:07 PM Prelim Date: 06/18/2023 3:06:15 PM Sign Date: 06/18/2023 3:06:15 PM Ordering Provider: [facility]2024 Note ORIGINAL EXAMINATION: THREE XRAY VIEWS OF THE RIGHT WRIST06/18/2023 3:44 pm COMPARISON: None HISTORY: ORDERING SYSTEM PROVIDED HISTORY: Reason for Exam: fell yesterday, swelling and minimal ROM FINDINGS: No acute fracture or dislocation is identified. Severe degenerative changes at the 1st carpometacarpal joint. There is no radiopaque foreign body. IMPRESSION: No acute fracture or dislocation. 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 I have personally reviewed the images of this examination and agree with the resident's findings and interpretation. Interpreted by: Mike Feliz MD Preliminary Report By: Loren Wilkerson Electronically signed By Mike Feliz MD Dictated Date: 06/18/2023 3:46:09 PM Prelim Date: 06/18/2023 4:07:18 PM Sign Date: 06/18/2023 4:07:18 PM Ordering Provider: [facility]2024 Note ORIGINAL EXAMINATION: THREE XRAY VIEWS OF THE RIGHT SHOULDER06/18/2023 3:44 pm COMPARISON: None HISTORY: ORDERING SYSTEM PROVIDED HISTORY: Reason for Exam: fell yesterday, swelling and minimal ROM FINDINGS: No fracture or dislocation is identified. There are no abnormal periarticular calcifications. Mild degenerative changes are present at the acromioclavicular joint. The included thoracic structures are normal. Right axillary region surgical clips noted. Partially visualized post sternotomy changes. IMPRESSION: No acute fracture or dislocation. I have personally reviewed the images of this examination and agree with the resident's findings and interpretation. Interpreted by: Mike Feliz MD Preliminary Report By: Loren Wilkerson Electronically signed By Mike Feliz MD Dictated Date: 06/18/2023 3:48:45 PM Prelim Date: 06/18/2023 4:06:40 PM Sign Date: 06/18/2023 4:06:40 PM Ordering Provider: [facility]05-04-2023 Note ORIGINAL HISTORY: Diminished lung sounds COMPARISON: 17 February 2021 FINDINGS: Sternotomy wires and valve prostheses are unchanged. There is hyperinflation. The lungs are clear. The pulmonary vasculature is unremarkable in appearance. There is mild cardiomegaly. IMPRESSION: Clear lungs. Interpreted by: Mohamud Finney MD Preliminary Report By: Mohamud Finney MD Electronically signed By Mohamud Finney MD Dictated Date: 07/30/2022 9:41:27 AM Prelim Date: 07/30/2022 9:42:23 AM Sign Date: 07/30/2022 9:42:23 AM Ordering Provider: [facility]05-04-2023 Note ORIGINAL HISTORY: Diminished lung sounds COMPARISON: 17 February 2021 FINDINGS: Sternotomy wires and valve prostheses are unchanged. There is hyperinflation. The lungs are clear. The pulmonary vasculature is unremarkable in appearance. There is mild cardiomegaly. IMPRESSION: Clear lungs. Interpreted by: Mohamud Finney MD Preliminary Report By: Mohamud Finney MD Electronically signed By Mohamud Finney MD Dictated Date: 07/30/2022 9:41:27 AM Prelim Date: 07/30/2022 9:42:23 AM Sign Date: 07/30/2022 9:42:23 AM Ordering Provider: [facility]12-20-2022 Note ORIGINAL EXAMINATION: BONE DENSITOMETRY 03/17/2022 2:28 pm TECHNIQUE: A bone density dual x-ray absorptiometry (DEXA) scan was performed of the lumbar spine and left hip on a ZYOMYX system. COMPARISON: None. HISTORY: ORDERING SYSTEM PROVIDED HISTORY: Reason for Exam: Osteoporosis Screening FINDINGS: LEFT HIP: The bone mineral density in the total hip is measured at 0.886 g/cm2 corresponding to a T-score of -1.0. This is within the normal range by WHO criteria. The bone mineral density of the femoral neck is measured at 0.833 g/cm2 corresponding to a T-score of -0.7. This is within the normal range by WHO criteria. Lumbar Spine: The bone mineral density of the lumbar spine, L1 through L4 is measured at 1.100 g/cm2 corresponding to a T-score of 0.1. This is within the normal range by WHO criteria. IMPRESSION: Normal bone mineralization by WHO criteria. Interpreted by: Alia Clark Preliminary Report By: Alia Clark Electronically signed By Alia Clark Dictated Date: 03/17/2022 2:56:06 PM Prelim Date: 03/17/2022 2:58:10 PM Sign Date: 03/17/2022 2:58:10 PM Ordering Provider: [facility]12-20-2022 Note ORIGINAL EXAMINATION: BONE DENSITOMETRY 03/17/2022 2:28 pm TECHNIQUE: A bone density dual x-ray absorptiometry (DEXA) scan was performed of the lumbar spine and left hip on a Hologic system. COMPARISON: None. HISTORY: ORDERING SYSTEM PROVIDED HISTORY: Reason for Exam: Osteoporosis Screening FINDINGS: LEFT HIP: The bone mineral density in the total hip is measured at 0.886 g/cm2 corresponding to a T-score of -1.0. This is within the normal range by WHO criteria. The bone mineral density of the femoral neck is measured at 0.833 g/cm2 corresponding to a T-score of -0.7. This is within the normal range by WHO criteria. Lumbar Spine: The bone mineral density of the lumbar spine, L1 through L4 is measured at 1.100 g/cm2 corresponding to a T-score of 0.1. This is within the normal range by WHO criteria. IMPRESSION: Normal bone mineralization by WHO criteria. Interpreted by: Alia Clark Preliminary Report By: Alia Clark Electronically signed By Alia Clark Dictated Date: 03/17/2022 2:56:06 PM Prelim Date: 03/17/2022 2:58:10 PM Sign Date: 03/17/2022 2:58:10 PM Ordering Provider: [facility]11-22-2021 Evaluation + Plan note Future Scheduled Tests Radiology* XR Chest 2 Views (PA & Lateral) 02/17/21 [facility] 02-11-2021 Evaluation note* Diagnosis Onset Date Resolution Status Chronic combined systolic an d diastolic CHF (congestive heart failure) chronic History of placement of lead less cardiac pacemaker May 09, 2020 chronic Sick sinus syndrome chronic Aortic root aneurysm chronic Essential (primary) hypertension chronic H/O coronary artery bypass surgery July 17, 2005 chronic History of aortic valve repl acement with bioprosthetic valve May 11, 2019 chronic History of mitral valve repair May 11, 2019 chronic History of placement of lead less cardiac pacemaker May 09, 2020 chronic Hyperlipidemia chronic Longstanding persistent atrial fibrillation [facility] Work Phone: [phone]) 324-949404-21-2006 Evaluation note* Diagnosis Onset Date Resolution Status Aortic root aneurysm chronic Essential (primary) hypertension chronic H/O coronary artery bypass surgery July 17, 2005 chronic History of aortic valve repl acement with bioprosthetic valve May 11, 2019 chronic History of mitral valve repair May 11, 2019 chronic History of placement of lead less cardiac pacemaker May 09, 2020 chronic Hyperlipidemia chronic Longstanding persistent atrial fibrillation chronic History of placement of lead less cardiac pacemaker May 09, 2020 chronic Longstanding persistent atrial fibrillation chronic Sick sinus syndrome [facility] Work Phone: Evaluation + Plan note Future Appointments Appointment Date:02/24/2021 09:50:00 AM Scheduled Provider:LOREN BRUNSON MD Location:[facility] Appointment Type: OV Future Scheduled Tests Radiology* XR Chest 2 Views (PA & Lateral) 02/17/21 [facility] Evaluation + Plan note Future Appointments Appointment Date:06/17/2022 09:30:00 AM Scheduled Provider:HANSEL SOLIS DO Location:[facility] Appointment Type: OV Future Scheduled Tests Radiology* BD Bone Density DEXA Axial Skeleton 02/18/22 [facility] evaluation + Plan note Future Appointments Appointment Date:06/17/2022 09:30:00 AM Scheduled Provider:HANSEL SOLIS DO Location:[facility] Appointment Type: OV [facility] Evaluation + Plan note Future Appointments Appointment Date:10/27/2022 08:30:00 AM Scheduled Provider:HANSEL SOLIS DO Location:[facility] Appointment Type: OV [facility] Evaluation + Plan note Future Appointments Appointment Date:03/05/2023 11:30:00 AM Scheduled Provider:HANSEL SOLIS DO Location:[facility] Appointment Type: OV [facility] Evaluation + Plan note Future Appointments Appointment Date:09/03/2023 10:30:00 AM Scheduled Provider:HANSEL SOLIS DO Location:[facility] Appointment Type: OV Future Scheduled Tests Laboratory* Uric Acid 03/05/23 * Complete Blood Count 03/05/23 * Lipid Profile 03/05/23 * Complete Metabolic Panel 03/05/23 * N-Terminal proBNP 03/05/23 [facility] Evaluation + Plan note Future Appointments Appointment Date:03/07/2024 09:30:00 AM Scheduled Provider:HANSEL SOLIS DO Location:[facility] Appointment Type:PC Wellness Medicare Future Scheduled Tests Laboratory* TSH with Reflex to FT4 09/03/23 * Basic Metabolic Panel 09/03/23 * Prostate Specific Antigen 09/03/23 * Uric Acid 09/03/23 * Complete Blood Count 09/03/23 * Albumin/Creatinine Ratio, Random Urine 09/03/23 * Vitamin D Level 09/03/23 Radiology* BD Bone Density DEXA Axial Skeleton 09/03/23 [facility] Evaluation + Plan note Future Appointments Appointment Date:03/07/2024 09:30:00 AM Scheduled Provider:HANSEL SOLIS DO Location:[facility] Appointment Type:PC Wellness Medicare Future Scheduled Tests Laboratory* Albumin/Creatinine Ratio, Random Urine 09/03/23 Radiology* BD Bone Density DEXA Axial Skeleton 09/03/23 [facility] Evaluation + Plan note Future Appointments Appointment Date:05/02/2024 10:00:00 AM Scheduled Provider: Location:[facility] Appointment Type:PC Nurse Lab Appointment Date:05/09/2024 10:15:00 AM Scheduled Provider:HANSEL SOLIS DO Location:[facility] Appointment Type: OV Future Scheduled Tests Laboratory* Thyroid Stimulating Hormone 03/07/24 * Free T4 03/07/24 Radiology* BD Bone Density DEXA Axial Skeleton 09/03/23 [facility] evaluation + Plan note Future Appointments Appointment Date:05/09/2024 10:15:00 AM Scheduled Provider:HANSEL SOLIS DO Location:[facility] Appointment Type:PC OV Future Scheduled Tests Radiology* BD Bone Density DEXA Axial Skeleton 09/03/23 * BD Bone Density DEXA Axial Skeleton Adult (21 yrs or older) 03/16/24 [facility] Evaluation + Plan note Future Appointments Appointment Date:09/12/2024 09:45:00 AM Scheduled Provider:HANSEL SOLIS DO Location:[facility] Appointment Type:PC OV Future Scheduled Tests Radiology* BD Bone Density DEXA Axial Skeleton Adult (21 yrs or older) 03/16/24 [facility] Hospital course Narrative No data available for this section [facility] Hospital Discharge instructions No data available for this section [facility] Progress note No data available for this section [facility] Reason for referral (narrative)[facility] Chief Complaint and Reason for Visit Chief Complaint 3 mos remote Micra V R f/u 8 MO F/U E ORDERS Reason for Visit 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 Sick sinus syndrome Aortic root aneurysm Essential (primary) hypertension H/O coronary artery bypass surgery History of aortic valve replacement with bioprosthetic valve History of mitral valve repair History of placement of leadless cardiac pacemaker Hyperlipidemia Longstanding persistent atrial fibrillation Chief Complaint 6 M FU INT LABS REMOTE CHECK Reason for Visit Aortic root aneurysm Essential (primary) hypertension H/O coronary artery bypass surgery History of aortic valve replacement with bioprosthetic valve History of mitral valve repair History of placement of leadless cardiac pacemaker Hyperlipidemia Longstanding persistent atrial fibrillation History of placement of leadless cardiac pacemaker Longstanding persistent atrial fibrillation Sick sinus syndrome Chief Complaint Admit Date Pacer Check Remote June 16, 2024 5:3 0pm overdue for in-clinic f/u Sees MM@ 9am M ay 1st, 2025 8:34am 6 M FU PPM f/u @ 8:30am July 27, 2024 8: 35am Pacer Check Remote July 27, 2024 9:00am Pacer Check Remote August 09, 2024 5:12p m Reason for Visit Admit Date Cardiomyopathy July 27, 2024 8:34am History of placement of leadless cardiac pacemaker July 27, 2024 8:34am Longstanding persistent atrial fibrillat ion July 27, 2024 8:34am Sick sinus syndrome July 27, 2024 8:34am Cardiomyopathy July 27, 2024 8:35am Aortic root aneurysm July 27, 2024 8:35a m Essential (primary) hypertension July 8:35am H/O coronary artery bypass surgery July 272024 8:35am History of aortic valve replacement with bioprosthetic valve July 27, 2024 8:35am History of mitral valve repair July 27, 2024 8:35am History of placement of leadless cardiac pacemaker July 27, 2024 8:35am Longstanding persistent atrial fibrillat ion July 27, 2024 8:35am Chief Complaint Admit Date Pacer Check Remote June 16, 2024 5:3 0pm overdue for in-clinic f/u Sees MM@ 9am M ay 2024 8:34am 6 M FU PPM f/u @ 8:30am July 27, 2024 8: 35am Pacer Check Remote July 27, 2024 9:00am Pacer Check Remote August 09, 2024 5:12p m Pacer Check Remote September 20, 2024 2:27 pm Chief Complaint Admit Date overdue for in-clinic f/u Sees MM@ 9am M ay 2024 8:34am 6 M FU PPM f/u @ 8:30am July 27, 2024 8: 35am Pacer Check Remote July 27, 2024 9:00am Pacer Check Remote August 09, 2024 5:12p m Pacer Check Remote September 20, 2024 2:27 pm 3 M FU October 31, 2024 8:4 9am Reason for Visit Admit Date Cardiomyopathy July 27, 2024 8:34am History of placement of leadless cardiac pacemaker July 27, 2024 8:34am Longstanding persistent atrial fibrillat ion July 27, 2024 8:34am Sick sinus syndrome May 1st, 2025 8:34am Cardiomyopathy July 27, 2024 8:35am Aortic root aneurysm July 27, 2024 8:35a m Essential (primary) hypertension July 8:35am H/O coronary artery bypass surgery July 272024 8:35am History of aortic valve replacement with bioprosthetic valve July 27, 2024 8:35am History of mitral valve repair July 27, 2024 8:35am History of placement of leadless cardiac pacemaker July 27, 2024 8:35am Longstanding persistent atrial fibrillat ion July 27, 2024 8:35am Cardiomyopathy October 31, 2024 8:4 9am Aortic root aneurysm October 31, 2024 8: 49am Essential (primary) hypertension October 31, 2024 8:49am H/O coronary artery bypass surgery Aug2024 8:49am History of aortic valve replacement with bioprosthetic valve October 31, 2024 8:49am History of mitral valve repair October 8:49am History of placement of leadless cardiac pacemaker October 31, 2024 8:49am Longstanding persistent atrial fibrillat ion October 31, 2024 8:49am Advance Directives No Advanced Directives Records Found Advance Directive Response Recorded Date/ Time Advance Directives No April 9:41am Living Will Yes May 09 12:46pm Power of Picking Machine Operator Helper Yes May 09, 2020 12:46pm Advance Directive Response Recorded Date/ Time Advance Directives No April 9:41am Summary Purpose Family History No Family History Records Found Additional Source Comments Goals (unrecognized section and content) Goals may be documented in a n alternate section Care Team (unrecognized sect ion and content) Care Team Personnel Name: Vika Seay Clerhudson Ruiz PT Position: P3 Scheduling - General Manager Road Production Advanced Member Role: Other Name: PASTOR PORRAS MD Member Role: Marketing Recruiter Address: Address: [address] [place] [address]- Name: HANSEL SOLIS DO Position: P4 Physician - Primary Care Member Role: Primary Care Physician Address: Address: [address] [place], [place] [address] Care Team Related Persons Name: CHANDLER GUZMAN Name: KEYANNA GUZMAN Name: KEYANNA GUZMAN Name: KEYANNA GUZMAN Care Team Personnel Name: Dawood [employer] Consultant Sara PT Position: P3 Scheduling - General Manager Road Production Advanced Member Role: Other Name: PASTOR PORRAS MD Member Role: Marketing Recruiter Address: Address: [address] [place] [address]- Name: HANSEL SOLIS DO Position: P4 Physician - Primary Care Member Role: Primary Care Physician Address: Address: [address] [place] [address]- Care Team Related Persons Name: LAURI GUZMANMERT Name: KEYANNA GUZMAN Name: KEYANNA GUZMAN Name: KEYANNA GUZMAN Care Teams (unrecognized sec tion and content) Team Status: Active Member Role Status Dates Dr. Loren Brunson MD Family Provider Active No Primary Care Physician Primary Care Provider Active Team Status: Inactive Member Role Status Dates Rohini BOND, PA Attending Provider Active No Primary Care Physician Primary Care Provider, Refer ring Provider Active Team Status: Inactive Member Role Status Dates No Primary Care Physician Primary Care Provider, Refer ring Provider Active Olimpia Okeefe Attending Provider Active Team Status: Inactive Member Role Status Dates No Primary Care Physician Primary Care Provider Active Dr. Pastor Porras MD Attending Provider, Referring Pro vider Active Rohini Ascencio PA, PA Other Provider Active Team Status: Active Member Role Status Dates Dr. Loren Brunson MD Family Provider Active Dr. Hansel Solis DO Primary Care Provider Active Team Status: Inactive Member Role Status Dates Dr. Hansel Solis DO Primary Care Provider Active Start: June 16, 2024 End: June 16, 2024 Dr. Pastor Porras MD Attending Provider Active S tart: June 16, 2024 End: June 16, 2024 Dr. Pastor Porras MD Referring Provider Active S tart: June 16, 2024 End: June 16, 2024 Team Status: Inactive Member Role Status Dates Dr. Hansel Solis DO Primary Care Provider Active Start: July 27, 2024 End: July 27, 2024 Dr. Pastor Porras MD Attending Provider Active S tart: July 27, 2024 End: July 27, 2024 Dr. Pastor Porras MD Referring Provider Active S tart: July 27, 2024 End: July 27, 2024 Team Status: Inactive Member Role Status Dates Dr. Hansel Solis DO Primary Care Provider Active Start: July 27, 2024 End: July 27, 2024 Dr. Hansel Solis DO Referring Provider Active Start: July 27, 2024 End: July 27, 2024 Rohini BOND, PA Attending Provider Active Start: July 27, 2024 End: July 27, 2024 Team Status: Inactive Member Role Status Dates Dr. Hansel Solis DO Primary Care Provider Active Start: July 27, 2024 End: July 27, 2024 Dr. Pastor Porras MD Attending Provider Active S tart: July 27, 2024 End: July 27, 2024 Team Status: Inactive Member Role Status Dates Dr. Hansel Solis DO Primary Care Provider Active Start: August 09, 2024 End: August 09, 2024 Dr. Pastor Porras MD Attending Provider Active S tart: August 09, 2024 End: August 09, 2024 Team Status: Active Member Role/Relationship Status Dates Dr. Loren Brunson MD Family Provider Active Dr. Hansel Solsi DO Primary Care Provider Active Team Status: Inactive Member Role/Relationship Status Dates Dr. Hansel Solis DO Primary Care Provider Active Start: June 16, 2024 End: June 16, 2024 Dr. Pastor Porras MD Attending Provider Active S tart: June 16, 2024 End: June 16, 2024 Dr. Pastor Porras MD Referring Provider Active S tart: June 16, 2024 End: June 16, 2024 Team Status: Inactive Member Role/Relationship Status Dates Dr. Hansel Solis DO Primary Care Provider Active Start: July 27, 2024 End: July 27, 2024 Dr. Pastor Porras MD Attending Provider Active S tart: July 27, 2024 End: July 27, 2024 Dr. Pastor Porras MD Referring Provider Active S tart: July 27, 2024 End: July 27, 2024 Team Status: Inactive Member Role/Relationship Status Dates Dr. Hansel Solis DO Primary Care Provider Active Start: July 27, 2024 End: July 27, 2024 Dr. Hansel Solis DO Referring Provider Active Start: July 27, 2024 End: July 27, 2024 Rohini BOND, PA Attending Provider Active Start: July 27, 2024 End: July 27, 2024 Team Status: Inactive Member Role/Relationship Status Dates Dr. Hansel Solis DO Primary Care Provider Active Start: July 27, 2024 End: July 27, 2024 Dr. Pastor Porras MD Attending Provider Active S tart: July 27, 2024 End: July 27, 2024 Team Status: Inactive Member Role/Relationship Status Dates Dr. Hansel Solis DO Primary Care Provider Active Start: August 09, 2024 End: August 09, 2024 Dr. Pastor Porras MD Attending Provider Active S tart: August 09, 2024 End: August 09, 2024 Dr. Pastor Porras MD Referring Provider Active S tart: August 09, 2024 End: August 09, 2024 Team Status: Inactive Member Role/Relationship Status Dates Dr. Hansel Solis DO Primary Care Provider Active Start: September 20, 2024 End: September 20, 2024 Dr. Pastor Porras MD Attending Provider Active S tart: September 20, 2024 End: September 20, 2024 Team Status: Inactive Member Role/Relationship Status Dates Dr. Hansel Solis DO Primary Care Provider Active Start: July 27, 2024 End: July 27, 2024 Dr. Pastor Porras MD Attending Provider Active S tart: July 27, 2024 End: July 27, 2024 Dr. Pastor Porras MD Referring Provider Active S tart: July 27, 2024 End: July 27, 2024 Team Status: Inactive Member Role/Relationship Status Dates Dr. Hansel Solis DO Primary Care Provider Active Start: July 27, 2024 End: July 27, 2024 Dr. Hansel Solis DO Referring Provider Active Start: July 27, 2024 End: July 27, 2024 Rohini Ascencio PA, PA Attending Provider Active Start: July 27, 2024 End: July 27, 2024 Team Status: Inactive Member Role/Relationship Status Dates Dr. Hansel Solis DO Primary Care Provider Active Start: July 27, 2024 End: July 27, 2024 Dr. Pastor Porras MD Attending Provider Active S tart: July 27, 2024 End: July 27, 2024 Team Status: Inactive Member Role/Relationship Status Dates Dr. Hansel Solis DO Primary Care Provider Active Start: August 09, 2024 End: August 09, 2024 Dr. Pastor Porras MD Attending Provider Active S tart: August 09, 2024 End: August 09, 2024 Dr. Pastor Porras MD Referring Provider Active S tart: August 09, 2024 End: August 09, 2024 Team Status: Inactive Member Role/Relationship Status Dates Dr. Hansel Solis DO Primary Care Provider Active Start: September 20, 2024 End: September 20, 2024 Dr. Pastor Porras MD Attending Provider Active S tart: September 20, 2024 End: September 20, 2024 Dr. Pastor Porras MD Referring Provider Active S tart: September 20, 2024 End: September 20, 2024 Team Status: Inactive Member Role/Relationship Status Dates Dr. Hansel Solis DO Primary Care Provider Active Start: October 31, 2024 End: October 31, 2024 Dr. Hansel Solis DO Referring Provider Active Start: October 31, 2024 End: October 31, 2024 Rohini Ascencio PA, PA Attending Provider Active Start: October 31, 2024 End: October 31, 2024 (unrecognized sect ion and content) No Status Records FoundNo Status Records FoundNo Status Records Found INFORMATION SOURCE (unrecogn ized section and content) DATE CREATED AUTHOR 09/12/2023 [facility] ([place]) DATE CREATED AUTHOR AUTHOR'S ORGANIZ ATION 09/09/[address] [facility] DATE CREATED AUTHOR AUTHOR'S ORGANIZ ATION 12/16/2024 [facility] FOR RECORDS PERTAINING TO PATIENTS WHO ARE OR HAVE BEEN ENROLLED IN A CHEMICAL DEPENDENCY/SUBSTANCEABUSE PROGRAM, SOME INFORMATION MAY BE OMITTED. This clinical summary was aggregated from multiple sources. Caution should be exercised in using it in the provision of clinical care. This summary normalizes information from multiple sources, and as a consequence, information in this document may materially change the coding, format and clinical context of patient data. In addition, data may be omitted in some cases. CLINICAL DECISIONS SHOULD BE BASED ON THE PRIMARY CLINICAL RECORDS. [facility]. provides no warranty or guarantee of the accuracy or completeness of information in this document.
--- NOTE | 2024-12-18 08:08 | PCM.PRE.AN2 ---
ASA Classification* ASA Classification ASA Classification: 3 Assessment & Plan Anesthesia* Anesthesia Assessment Anesthesia Assessment: Discussed sedation and/or anesthesia options, risks, benefits, and alternatives with patient/parents/legal guardian/POA. Questions invited. The patient/parents/legal guardian/POA seems to understand and agrees to proceed with anesthesia plan. Reviewed the physical assessment, medical history, allergy history and patient home medications list prior to surgery/procedure/anesthetic and documented any changes. Performed airway and anesthesia risk assessments. Anesthesia Type Anesthesia Type: General and Block Anesthesia Focused Assessment* Airway Assessment Mouth opens: >3 cm Mallampati Score: II Labs Anesthesia Preop lab: CBC WBC, (4.4-11.0) 7.2 K/mm3 11/29/24, 08: RBC, (4.6-6.2) 4.21 M/mm3 L 11/29/24, 08: Hgb, (13.0-16.5) 13.8 g/dL 11/29/24, 08: Hct, (40-54) 41.3 % 11/29/24, 08:28 Plt Count, (150-450) 111 K/mm3 L 11/29/24, 08:28 CHEMISTRY Potassium, (3.3-5.1) 4.5 mmol/L 11/29/24, 08:28 Sodium, (133-145) 140 mmol/L 11/29/24, 08:28 Magnesium, (1.5-2.2) 2.0 mg/dL 11/29/24, 08:28 BUN, (4-19) 30 mg/dL H 11/29/24, 08:28 Creatinine, (0.70-1.20) 1.57 mg/dL H 11/29/24, 08:28 Glucose, (70-99) 113 mg/dL H 11/29/24, 08:28 TSH, (0.358-3.74) 3.07 uIU/mL 12/23/20, 14:52 COAG PT, (11.7-14.9) 14.1 SECONDS 05/06/20, 10:12 Pre-Assessment Diagnosis/Proposed Procedure Planned Operative Procedure(s): (R) Total Shoulder Replacement, Reverse Anesthesia History Anesthesia History - electric distribution checker: Anesthesia History - electric distribution checker Hx Hospitalization No 11/22/24 09:31 Any Problems With Anesthesia No 11/22/24 09:31 Cholinesterase deficiency No 11/22/24 09:31 You/Your Family Experience No 11/22/24 09:31 fever (hyperthermia) with Relationship Recent Exposure to Contagious Disease Does patient have nerve No 11/22/24 09:31 stimulator Patient instructed to have device shut off --Does patient have Pacemaker or ICD? When Was Last Pacemaker Check QUESTION #4 FULL TEXT: You/Your Family Experience fever (hyperthermia) with Anesthesia Last Oral Intake Last Oral intake: Last Oral Intake NPO since Meds taken in AM with sips of water? Meds patient instructed to take am of surgery PONV PONV - electric distribution checker: PONV - electric distribution checker Female No 11/22/24 09:31 HX of Motion Sickness No 11/22/24 09:31 HX of N/V After Surgery No 11/22/24 09:31 Non-Smoker Yes 11/22/24 09:31 Duration of Surgery greater Yes 11/22/24 09:31 than 60 minutes Number of Risk Factors 2 11/22/24 09:31 PONV Score Moderate Risk 11/22/24 09:31 Height & Weight Height & Weight: Anesthesia: Height & Weight Height 5 ft 11 in 10/31/24 09:13 Respiratory Assessment Respiratory Assessment - electric distribution checker: Respiratory Tract Infection Hx - electric distribution checker Hx Respiratory Tract Infection No 11/22/24 09:31 STOP Sleep Apnea STOP Sleep Apnea - electric distribution checker: STOP Sleep Apnea - electric distribution checker Hx Hypertension Yes: CONTROLLED ON MED 11/22/24 09:31 Hx Sleep Apnea No 11/22/24 09:31 CPAP BIPAP Do you snore loudly (louder No 11/22/24 09:31 than talking or can be heard Do you often feel tired/ No 11/22/24 09:31 fatigued/ sleepy during daytime? Has anyone observed you stop No 11/22/24 09:31 breathing during sleep? STOP Results Negative 11/22/24 09:31 QUESTION #5 FULL TEXT : Do you snore loudly (louder than talking or can be heard through closed doors)? Tobacco Use History Tobacco Use History - electric distribution checker: Tobacco Use History - electric distribution checker Tobacco Use Smoking Status Former smoker 11/22/24 09:31 Hx Tobacco Use No 11/22/24 09:31 Years Smoking Packs Smoked per Day Smoking Cessation Date was No - quit smoking greater 11/22/24 09:31 within the last 15 years than 15 years ago Hx Smoking Cessation Date 03/29/88 11/22/24 09:31 Hx Smoking Cessation No 11/22/24 09:31 Counseling Hematologic Medial History Hematologic Hx - electric distribution checker: Hematologic Medical Hx - health information coder Hx of Blood Transfusion Yes 11/22/24 09:31 Hx of Transfusion in last 3 No 11/22/24 09:31 Months Date of Last Transfusion (if within last 3 months) Ever experience any problems No 11/22/24 09:31 with transfusion(s)? Specify any problems Hx of Preganancy in last 3 N/A 11/22/24 09:31 Months Nurse Filling Out Transfusion VCHRISTIN 11/22/24 09:31 & Questions: Date: 11/22/24 11/22/24 09:31 Time: 09:32 11/22/24 09:31 Patient unable to answer at this time (ie. confused, unrespo /Reproduction History /Reproductive History - electric distribution checker: /Reproductive Hx- electric distribution checker Hx Now No 11/22/24 09:31 Gestational Age (in weeks): EDC: Hx Hx Para Hx Section SAB No 11/22/24 09:31 Active Medications Active Medications: Current Medications Generic Name Dose Route Start Last Admin Trade Name Freq PRN Reason Stop Dose Admin Acetaminophen 1,000 mg 12/18/24 10:00 Acetaminophen 500 Mg Tablet PO 12/18/24 10:01 PREOP ONE Dexamethasone Sodium Phosphate 10 mg 12/18/24 10:00 Dexamethasone 10 Mg/Ml Vial IV 12/18/24 10:01 INTRAOP ONE Gabapentin 600 mg 12/18/24 10:00 Gabapentin 600 Mg Tablet PO 12/18/24 10:01 PREOP ONE Lactated Ringer's 1,000 mls @ 999 mls/hr 12/18/24 10:00 IV 12/18/24 11:00 .Q1H1M DUC Cefazolin Sodium 2 gm/ Sodium 110 mls @ 150 mls/hr 12/18/24 10:00 Chloride IV 12/18/24 10:43 INTRAOP ONE Tranexamic Acid 1,000 mg/ 110 mls @ 660 mls/hr 12/18/24 10:00 Sodium Chloride IV 12/18/24 10:09 INTRAOP ONE Lactated Ringer's 1,000 mls @ 999 mls/hr 12/18/24 10:00 IV 12/18/24 11:00 .Q1H1M DUC Lactated Ringer's 1,000 mls @ 125 mls/hr 12/18/24 10:00 IV 12/18/24 17:59 .Q8H DUC Magnesium Sulfate 1 gm/ 102 mls @ 408 mls/hr 12/18/24 10:00 Dextrose IV 12/18/24 10:14 PREOP ONE Insulin Human Lispro 1 - 6 unit 12/18/24 10:00 Insulin Lispro 100 Unit/Ml Insuln.Pen SC Q4H PRN PRN BG>/= 180, SEE PROTOCOL Protocol PFSH Medical History Wears glasses Arthritis Kidney stones High cholesterol Injury of head and neck Gastric reflux Non-smoker History of pain when walking History of edema History of echocardiogram History of stress test Cardiology follow-up encounter Hypertension History of skin cancer Cardiomyopathy Decreased left ventricular function Left ventricular diastolic dysfunction Longstanding persistent atrial fibrillation Chronic combined systolic and diastolic CHF (congestive heart failure) Sick sinus syndrome Thrombocytopenia Atrial fibrillation and flutter (11/2019) Essential (primary) hypertension Petechiae Headache Poor historian 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) Right bundle branch block (RBBB) Prosthetic aortic valve stenosis Junctional rhythm Postoperative atrial fibrillation (05/11/19) 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 Nonrheumatic mitral (valve) insufficiency Nonrheumatic aortic (valve) stenosis with insufficiency Hx of renal calculi Hyperlipidemia Atherosclerotic heart disease of [place] coronary artery without angina pectoris Home Medications ?Medication ?Instructions ?Recorded ?Last Taken ?Type nitroglycerin 0.4 mg sublingual 0.4 mg sublingual Q5-15M PRN chest 03/08/23 Unknown Rx tablet pain #25 tabs apixaban 5 mg tablet (Eliquis) 5 mg PO BID #60 tabs 02/21/24 12/15/24 Rx atenolol 25 mg tablet 25 mg PO DAILY #90 tabs 02/21/24 12/18/24 Rx atorvastatin 10 mg tablet 10 mg PO DAILY #90 tabs 09/04/24 12/17/24 Rx clindamycin HCl 300 mg capsule 600 mg PO .COMPLEX PRN PRIOR TO 10/31/24 Unknown History DENTAL APPOINTMENTS sacubitril 24 mg-valsartan 26 mg 1 tab PO BID #180 tabs 10/31/24 12/18/24 Rx tablet (Entresto) amlodipine 5 mg tablet 5 mg PO QHS 11/22/24 12/17/24 History Allergy/AdvReac Type Severity Reaction Status Date / Time Penicillins Allergy Intermediate rash Verified 12/18/24 08:03 sulfamethoxazole (From Allergy Intermediate rash Verified 12/18/24 08:03 Bactrim) trimethoprim (From Bactrim) Allergy Intermediate rash Verified 12/18/24 08:03 animal dander Allergy Unknown Ears plug Verified 12/18/24 08:03 up grass pollen Allergy Unknown plugs ears Verified 12/18/24 08:03 up lidocaine Allergy Unknown unknown Verified 12/18/24 08:03 oxycodone (From Percocet) AdvReac Intermediate GI upset Verified 12/18/24 08:03 spironolactone AdvReac Intermediate Diarrhea Verified 12/18/24 08:03 egg AdvReac Ears plug Verified 12/18/24 08:03 up, can't hear Family History Mother , age 82 lung problems No problems noted. Father , age 40 ruptured appendix No problems noted. Surgical History History of placement of leadless cardiac pacemaker (05/09/20) History of aortic root repair (05/11/19) History of mitral valve repair (05/11/19) History of left heart catheterization (10/25/18) History of ear surgery Hx of cholecystectomy H/O coronary artery bypass surgery (07/17/05) Hx of vasectomy Hx of fracture of ankle History of aortic valve replacement with bioprosthetic valve (05/11/19) Social History Smoking Status: Former smoker how long ago did patient quit smokin alcohol intake: never substance use type: does not use caffeine: Yes Type: coffee Number of servings: 3 Review of Systems (Anesthesia) ROS Narrative System reviewed and no additional complaints, except as documented.
[2024-12-18] MEDS: LR 1,000 ML - BOLUS PREOP 999 ML IV (08:35)
[2024-12-18] MEDS: Magnesium 1 GM over 15 mins IV (08:35)
[2024-12-18] MEDS: Midazolam 2 MG/2 ML Syringe 1 MG IV (08:54)
[2024-12-18] MEDS: Lactated Ringers 1,000 ML 1000 ML IV (09:12)
[2024-12-18] MEDS: Cefazolin 1 GM/5 ML Vial 2 GM IV (09:15)
[2024-12-18] MEDS: fentaNYL 100 MCG/2 ML Ampul 25 MCG IV (09:19)
[2024-12-18] MEDS: TRANEXAMIC ACID 1,000 MG/10 ML ML 1000 MG IV (09:35)
--- NOTE | 2024-12-18 11:04 | OP.PCM_ITS ---
Operative Report (Standard) Operative Information Date of Procedure: 12/18/24 Pre-Operative Diagnosis: Right shoulder rotator cuff tear arthropathy Post-Operative Diagnosis: Right shoulder rotator cuff tear arthropathy Surgery/Procedure Performed: Right reverse total shoulder arthroplasty patrol lady: Yes Assignment Officer: Abbi Sandoval Tasks completed by personal assistant: Opening & closing, Implanting device, Hemostasis: Electrocautery and Retracting Additional assistant grocery store manager?: No Type of Anesthesia: General/Regional RN Documented Start/Stop Times: Operation Date: 12/18/24 10:00 Case Time Into Pre-Op 12/18/24 07:42 Anesthesia Start 12/18/24 09:12 Into Room 12/18/24 09:12 Out of Pre-Op 12/18/24 09:12 Procedure Start 12/18/24 09:40 Procedure End 12/18/24 10:43 Anesthesia End 12/18/24 10:53 Out of Room 12/18/24 10:53 Into Recovery 12/18/24 10:55 Procedure Start Time: 09:40 Procedure Stop Time: 10:43 Select all DRAINS/GRAFTS/IMPLANTS that apply: Implanted device Implanted device details: Tornier Aequalis PerFORM+ reversed baseplate 29 mm diameter +6 mm lateralization, standard glenosphere cobalt chrome 42 mm diameter, Tornier perform inlay stem size #4, + 0 mm retentive size number 4 42 mm diameter poly ethylene insert with 9 mm metal spacer, short central post and peripheral screws x4. Estimated Blood Loss: 100 cc Specimen collected: No Description of surgery: Patient arrived to [facility] morning of the procedure and was greeted by the same day surgery staff. Prior to his procedure, I greeted the patient in the preoperative holding area I identified the patient by name, record number, and date of . Informed consent was confirmed. The operative extremity was marked. All questions were answered to patient satisfaction. An interscalene block was administered prior to procedure by anesthesia staff for postoperative and intraoperative analgesia. At time of his procedure, patient was brought to the operative suite and positioned supine on a standard table with a beachchair attachment. General anesthesia was induced after all bony prominences were well-padded. Endotracheal tube was placed. After adequate anesthesia and securing the tube, we prepared the patient to be positioned in the beachchair position. A well- padded head of physics was applied. The nonoperative extremity was placed in a well arm wu. He was then brought into the beachchair position after we confirmed an appropriate blood pressure. We then spun the bed 45 degrees. The operative extremity was then prepared. In the butterfly wing of the bed was removed and a well-padded torso strap was applied to secure the patient to the bed. The operative extremity was now free. We then prepped and draped the right upper extremity in normal, sterile orthopedic fashion. We then performed a timeout with all parties in attendance in agreement with the side, site, and operation be performed. 2 g Ancef was administered prior to incision by anesthesia staff, as well as 1 g TXA IV. No concerns were voiced and we elected to proceed. I first marked a standard deltopectoral incision just lateral to the coracoid process in line with the long axis of the humerus. Skin was sharply incised with 10 blade scalpel. I then dissected bluntly through the subcutaneous layers and found the fat stripe between the deltoid and pectoralis major. The cephalic vein was then identified and protected. It was retracted laterally with the deltoid. I then bluntly dissected underneath the deltoid with a Shaw elevator. Delilah retractor was placed. The upper 1 cm of the pectoralis major was released. I then identified the long head of the biceps tendon in the intertubercular groove. This was tenodesed in situ with #2 FiberWire. I then amputated the biceps proximal to the tenodesis site and followed the tendon to the supraglenoid tubercle where it was amputated. This identified the lesser and greater tuberosities. The supraspinatus was completely torn and retracted with an exposed greater tuberosity. I then performed a subscapularis peel while rotating the humerus externally. I tagged the subscapularis for possible repair later with a tagging suture. Humeral head was then dislocated anteriorly. Appropriate access to the humeral head was confirmed. I then subluxed the humeral head posteriorly with a Fukuda retractor placed around the posterior lip of the glenoid. Inferior capsule was tension. I was able to palpate the axillary nerve. Inferior capsule was then released to the 4 o'clock position of the glenoid face. 3 sided subscapularis release was performed with Bovie cautery. I then remove the Fukuda retractor and redislocated the shoulder anteriorly. I then made a anatomic neck cut of the cartilaginous surface of the humeral head. Sizing plate for a size # 3 stem was utilized to determine appropriate reaming size. A central pin was placed engaging the lateral cortex of the humerus. A size # 3 reamer was used to ream the humeral metaphysis and prepare for the inlay stem. A canal finding reamer was utilized prior to sequential broaching to a size # 4 short stem with excellent rotational and axial purchase in the humerus. I remove the broach handle left the size # [address] I then subluxed the humerus posterior to the glenoid. I then placed retractors around the posterior and anterior glenoid to expose the glenoid. Glenoid labrum was removed with Bovie cautery protecting the axillary nerve. We then used the standard 29 mm guide from [employer]it[employer] to position our centering pin, exiting approximately 25 mm from the joint surface along the anterior scapula. Guide was removed and pin was analyzed and compared to preoperative planning. It appeared to be in appropriate position. The Nautilus shaped reamer was then placed over top of the centering pin. I reamed a flat surface of the glenoid. We then removed the reamer and used the cannulated drill for the short central post. Post and baseplate was assembled on the back table. We then inserted the baseplate and central post the assembled baseplate to an appropriate depth with good press-fit purchase. A Mccamey was used to confirm depth. Cortical screws then were placed in the peripheral holes with good purchase. The baseplate had excellent purchase and the entire scapula would rotate with rotation of the baseplate. We then impacted the 42 mm glenosphere with a standard eccentricity and tightened the locking screw mechanism. We then removed retractors and turned our attention back to the humerus. I placed a standard +3 millimeters retentive polyethylene insert. I then reduced the shoulder. There was excellent range of motion and stability in all planes of motion. We selected this as our final size. We removed trials from the humerus after final dislocation. I copiously irrigated the canal. Broach was placed on hand and then impacted to an appropriate depth. Final + 3 mm retentive polyethylene insert was placed. Final reduction was then performed. The subscapularis was then identified with a tagging suture. Repair would have been likely under undue tension and likely failed. I elected to not perform a subscapularis repair. We then copiously irrigated the wound with sterile Betadine and normal saline solution. We reapproximated the interval with 0 Vicryl suture. Subcutaneous layers were reapproximated with 2 -0 Vicryl suture. Skin was finally running V- Loc 3-0 Monocryl suture and Dermabond. A sterile silver Mepilex dressing was applied. Patient was then placed in an ultra sling. Patient tolerated procedure well without complication. He was positioned back in the supine position extubated in the operative suite. [place] was [place] and subsequently to PACU in stable condition. Need for skilled assistant grocery store manager: Abbi Sandoval PA-C was critical to the outcome of the case. During the course of the procedure the physician assistant grocery store manager played a vital role. Her intimate knowledge of my steps in the procedure aided in safe and expedient completion of the procedure. The PA played a vital role in positioning particularly in obtaining the appropriate positioning. The PA was also vital in the retraction of soft tissues during the exposure and protecting vital structures. The PA was also vital and protecting soft tissues during times of bony cuts. She also played a vital role in closure with my direct supervision. The PA was also important during reduction and dislocation of the joint and trials intraoperatively. Intraoperative medications: 2 g Ancef IV, 1 g TXA IV x2 Post Operative Plan: Patient will be placed observation overnight due to his history of cardiac disease. Hospitalist has been consulted for assistance with medical management. Anticipate discharge home tomorrow. Weightbearing: Nonweightbearing right upper extremity, okay for pendulums. Range of motion of wrist elbow and hand as tolerated. Antibiotics: 2 g Ancef IV prior to incision, 24 hours IV antibiotics postoperatively DVT Prophylaxis: Aspirin enteric-coated 81 mg twice daily starting tomorrow Mariano: None Dressing: Maintain silver dressing x7 days. Okay to shower dressing on started on day 4 X-Rays: 2 weeks postop in the office Pain Medication: Oxycodone Rx upon discharge Follow-up: 2 weeks post-operatively with me in the office Surgical Findings: Rotator cuff tear arthropathy changes Complications Complications: No Admit VTE Documentation VTE Present on Admission: No VTE Mechan Device Prophylaxis: SCD's and Thigh High TAMIA Hose VTE Pharm Prophylaxis ordered?: Yes
[2024-12-18] MEDS: LR 1,000 ML - 125 ML/HR (POST BOLUS) POST OP IV (11:08)
--- NOTE | 2024-12-18 11:10 | RAD_ITS ---
PROCEDURE: SHOULDER MIN 2 VIEWS 12/18/2024 REASON FOR EXAM: POST OP TECHNIQUE: Procedure Code: RADSH Modality: DX Procedure: SHOULDER MIN 2 VIEWS Laterality: Right COMPARISON: Right shoulder CT of 11/29/2024. RAD/Shoulder min 2 Views IMPRESSION: The patient's postoperative reverse right total shoulder arthroplasty, with sat isfactory alignment seen. No complication is noted. No fracture site is noted. Degenerative changes are again seen of the right acromioclavicular joint. Reading [id number]
--- NOTE | 2024-12-18 11:11 | PCM.POST.ANE ---
Anesthesia: Postop Eval I Current Vital Signs Temperature: 96.8 F Pulse Rate: 58 Blood Pressure: 105/66 Respiratory Rate: 14 Pulse Ox: 97 Oxygen Delivery Method: Room Air Assessment Airway patent: Yes Spontaneous unlabored respirations: Yes Mental status: Awake nausea: No Vomiting: No Anesthesia Complication: No Fluid Hydration Crystalloid volume administer (ml): 1,000 Total IV fluid infused: 1,000 Progress Note Anesthesia document: Postop Eval 1 completed: Yes
--- NOTE | 2024-12-18 11:14 | POSTOPAN2_ITS ---
Anesthesia Postop Eval I Sum Postop Eval Completion status Anesthesia document: Postop Eval 1 completed: Yes Anesthesia Postop Eval I Summary Anesthesia Postop Eval I Summary: Anesthesia Postop Eval I: Assessment Summary Airway patent Yes 12/18/24 11:12 RN [email or web address] Spontaneous unlabored Yes 12/18/24 11:12 RN [email or web address] respirations Mental status Awake 12/18/24 11:12 RN [email or web address] nausea No 12/18/24 11:12 RN [email or web address] Vomiting No 12/18/24 11:12 RN [email or web address] Anesthesia Postop Eval I: Fluid Summary Crystalloid volume administer 1,000 12/18/24 11:12 RN [email or web address] (ml) Colloids volume administered ( ml) Blood Product volume administered (ml) Total IV fluid infused 1,000 12/18/24 11:12 RN [email or web address] Anesthesia Postop Eval I: Summary Notes Anesthesia Complication No 12/18/24 11:12 RN [email or web address] Anesthesia Complication Comment: Post-operative progress note Anesthesia: Postop Eval II Evaluation Mental status: Awake Pain Level: 1 nausea: No Vomiting: No
--- NOTE | 2024-12-18 11:14 | PCM.POSTANE2 ---
Anesthesia Postop Eval I Sum Postop Eval Completion status Anesthesia document: Postop Eval 1 completed: Yes Anesthesia Postop Eval I Summary Anesthesia Postop Eval I Summary: Anesthesia Postop Eval I: Assessment Summary Airway patent Yes 12/18/24 11:12 CUSTOM HOME [email or web address] Spontaneous unlabored Yes 12/18/24 11:12 CUSTOM HOME [email or web address] respirations Mental status Awake 12/18/24 11:12 CUSTOM HOME [email or web address] nausea No 12/18/24 11:12 CUSTOM HOME [email or web address].HBARR Vomiting No 12/18/24 11:12 CUSTOM HOME [email or web address] Anesthesia Postop Eval I: Fluid Summary Crystalloid volume administer 1,000 12/18/24 11:12 CUSTOM HOME [email or web address].HBARR (ml) Colloids volume administered ( ml) Blood Product volume administered (ml) Total IV fluid infused 1,000 12/18/24 11:12 CUSTOM HOME [email or web address].HBARR Anesthesia Postop Eval I: Summary Notes Anesthesia Complication No 12/18/24 11:12 CUSTOM HOME [email or web address] Anesthesia Complication Comment: Post-operative progress note Anesthesia: Postop Eval II Evaluation Mental status: Awake Pain Level: 1 nausea: No Vomiting: No
[2024-12-18] MEDS: Ensure Surgery 237 ML LIQUID PO ×2 (13:11→16:28)
[2024-12-18] MEDS: Cefazolin 1 GM/50 ML BAG IV (16:28)
[2024-12-18] MEDS: Lactated Ringers 1,000 ML 50 ML IV (17:42)
--- NOTE | 2024-12-18 20:30 | NURSING ---
Pt sleeping. po drop to 80% on . at 2lnc appilied
[2024-12-18] MEDS: SACUBITRIL/VALSARTAN 24/26 MG TABLET 1 EACH PO (21:03)
[2024-12-18] MEDS: Senna/Docusate Sodium 1 Tablet 2 TABLET PO (21:04)
--- NOTE | 2024-12-18 21:04 | PCM.CONS.GEN ---
Assessment & Plan Assessment/Plan (1) Longstanding persistent atrial fibrillation: PLAN: Plan # History of coronary artery disease status post bypass -CABG in 2005 with ESTERLLA?LAD - Continue beta-charisma as blood pressure allows -Resume Eliquis when okay to do so by primary -Continue atorvastatin # History of AVR/MV repair/aortic root repair/SSS status post Micra pacemaker -Patient with bioprosthetic aortic valve -Mitral valve repair with 29 mm Galvin band in 2019 -Pacemaker placement 2020 -Following with cardiology on outpatient basis # Atrial fibrillation -Resume Eliquis when cleared to do so by primary -Continue atenolol with holding parameters # History of cardiomyopathy -Patient has a listed chronic combined systolic and diastolic heart failure -Most recent EF February 2024 was 40% -Daily weights, I's and O's -BP soft, holding Entresto to allow room for pain control, can likely resume on discharge if BP stable #Hypertension - Patient with borderline blood pressure postoperatively, patient asymptomatic with no lightheadedness -Continue atenolol with holding parameters -Hold Entresto and amlodipine to allow room for pain control -Add back as blood pressure tolerates # Right shoulder rotator cuff tear arthropathy -Status post right reverse total shoulder arthroplasty with Dr. Barry 12/18/2024 -Management/pain management per primary #DVT ppx: Timing agent discretion of primary Orin Real MD Time spent in the patient's overall evaluation, decision-making process, review of diagnostic data, adjustment of management, discussion with other providers, nursing and ancillary staff involved in patient's care documentation, 31 Minutes HPI Consult Data Date of Consult: 12/18/24 HPI Narrative Reason for Consultation: Postoperative medical management HPI Narrative: MAXIMILIANO GUZMAN, is a 84-year-old male history of chronic combined heart failure, coronary artery disease with CABG, aortic bioprosthetic valve, aortic root repair, mitral valve repair, permanent pacemaker, hypertension, A-fib/flutter who presented [facility] 12/18/2024 for right reverse total shoulder arthroplasty. Hospitalist consulted for postoperative medical management. Patient evaluated bedside. He was woken from sleep, reports pain is manageable, no chest pain or shortness of breath, reports no problems urinating, no nausea. No other new or acute complaints. [facility] Medical History Wears glasses Arthritis Kidney stones High cholesterol Injury of head and neck Gastric reflux Non-smoker History of pain when walking History of edema History of echocardiogram History of stress test Cardiology follow-up encounter Hypertension History of skin cancer Cardiomyopathy Decreased left ventricular function Left ventricular diastolic dysfunction Longstanding persistent atrial fibrillation Chronic combined systolic and diastolic CHF (congestive heart failure) Sick sinus syndrome Thrombocytopenia Atrial fibrillation and flutter (11/2019) Essential (primary) hypertension Petechiae Headache Poor historian 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) Right bundle branch block (RBBB) Prosthetic aortic valve stenosis Junctional rhythm Postoperative atrial fibrillation (05/11/19) 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 Nonrheumatic mitral (valve) insufficiency Nonrheumatic aortic (valve) stenosis with insufficiency Hx of renal calculi Hyperlipidemia Atherosclerotic heart disease of [place] coronary artery without angina pectoris Home Medications ?Medication ?Instructions ?Recorded ?Last Taken ?Type nitroglycerin 0.4 mg sublingual 0.4 mg sublingual Q5-15M PRN chest 03/08/23 Unknown Rx tablet pain #25 tabs apixaban 5 mg tablet (Eliquis) 5 mg PO BID #60 tabs 02/21/24 12/15/24 Rx atenolol 25 mg tablet 25 mg PO DAILY #90 tabs 02/21/24 12/18/24 Rx atorvastatin 10 mg tablet 10 mg PO DAILY #90 tabs 09/04/24 12/17/24 Rx clindamycin HCl 300 mg capsule 600 mg PO .COMPLEX PRN PRIOR TO 10/31/24 Unknown History DENTAL APPOINTMENTS sacubitril 24 mg-valsartan 26 mg 1 tab PO BID #180 tabs 10/31/24 12/18/24 Rx tablet (Entresto) amlodipine 5 mg tablet 5 mg PO QHS 11/22/24 12/17/24 History Allergy/AdvReac Type Severity Reaction Status Date / Time Penicillins Allergy Intermediate rash Verified 12/18/24 08:03 sulfamethoxazole (From Allergy Intermediate rash Verified 12/18/24 08:03 Bactrim) trimethoprim (From Bactrim) Allergy Intermediate rash Verified 12/18/24 08:03 animal dander Allergy Unknown Ears plug Verified 12/18/24 08:03 up grass pollen Allergy Unknown plugs ears Verified 12/18/24 08:03 up lidocaine Allergy Unknown unknown Verified 12/18/24 08:03 oxycodone (From Percocet) AdvReac Intermediate GI upset Verified 12/18/24 08:03 spironolactone AdvReac Intermediate Diarrhea Verified 12/18/24 08:03 egg AdvReac Ears plug Verified 12/18/24 08:03 up, can't hear Family History Mother , age 82 lung problems No problems noted. Father , age 40 ruptured appendix No problems noted. Surgical History History of placement of leadless cardiac pacemaker (05/09/20) History of aortic root repair (05/11/19) History of mitral valve repair (05/11/19) History of left heart catheterization (10/25/18) History of ear surgery Hx of cholecystectomy H/O coronary artery bypass surgery (07/17/05) Hx of vasectomy Hx of fracture of ankle History of aortic valve replacement with bioprosthetic valve (05/11/19) Social History Smoking Status: Former smoker how long ago did patient quit smokin alcohol intake: never substance use type: does not use caffeine: Yes Type: coffee Number of servings: 3 ROS ROS Narrative ROS reviewed and pertinent positives and negatives as per HPI Physical Exam Narrative General: Awoken easily and answer questions appropriately HEENT: Atraumatic, normocephalic Eyes: Anicteric, normal conjunctiva, extraocular movements grossly intact Neck: Supple Respiratory: No overt wheezes or rhonchi, normal respiratory effort Cardiovascular: Irregularly irregular GI: Soft, nontender, nondistended Extremities: No edema Musculoskeletal: Moving all extremities aside from right upper extremity which is in sling Neuro: No overt focal neurological deficits Skin: No rashes appreciated Psych: Cooperative Lab / Micro Data 11/29/24 08:28 11/29/24 08:28 Labs: Laboratory Results - last 24 hr 12/18/24 08:40: POC Glucose 178 H 12/18/24 15:34: POC Glucose 196 H Imaging Radiology Impression Shoulder X-Ray 12/18/24 11:10 IMPRESSION: The patient's postoperative reverse right total shoulder arthroplasty, with satisfactory alignment seen. No complication is noted. No fracture site is noted. Degenerative changes are again seen of the right acromioclavicular joint. Reading Location: -[id number] Charges/Coding Visit Charges Office Visits / Consults: 52810 OV L4 Est 30min
[2024-12-18] MEDS: 0.9% Normal Saline (500mL Bag) 500 ML 999 ML IV (23:29)
[2024-12-19] MEDS: Cefazolin 1 GM/50 ML BAG IV (01:46)
[2024-12-19 01:53] VITALS: BP 103/54; PULSE 67; RESP 16; TEMP 36.4; O2SAT 99
[2024-12-19 05:33] VITALS: BP 98/61; PULSE 54; RESP 17; TEMP 36.7; O2SAT 98
[2024-12-19 05:42] VITALS: BMI 25.9
[2024-12-19 06:20] LABS: Hematocrit 33.8 % (40-54); Hemoglobin 11.5 g/dL (13.0-16.5); Mean Corp Hgb Conc 34.0 g/dL (32-36); Mean Corpuscular Volume 97.4 fL (80-94); Mean Platelet Vol. 11.1 fl (6.2-12.0); POSITIVE COUNT YES; Platelet Count 95 K/mm3 (150-450); RBC Distribution Width CV 13.2 % (11.6-14.6); RBC Distribution Width SD 46.9 fl (35.1-43.9); Red Blood Count 3.47 M/mm3 (4.6-6.2); White Blood Count 17.4 K/mm3 (4.4-11.0)
[2024-12-19 06:42] LABS: Anion Gap 12 (5-15); BUN 25 mg/dL (4-19); BUN/Creat Ratio 20.0 RATIO (10-20); Calcium,Total 8.5 mg/dL (7.6-11.0); Carbon Dioxide 20.2 mmol/L (21.0-32.0); Chloride 106 mmol/L (98-108); Estimated Creatinine Clearance 45.06 ml/min (50-250); Glucose 150 mg/dL (70-99); Potassium 4.7 mmol/L (3.3-5.1)
[2024-12-19 07:15] LABS: Scan Indicated on CBC? Y/N YES- FLAGS NOTED
[2024-12-19 08:02] VITALS: BP 97/47; PULSE 40; RESP 18; TEMP 36.5; O2SAT 95
[2024-12-19] MEDS: Aspirin E.C. 81 MG Tablet PO (08:07)
[2024-12-19] MEDS: Ensure Surgery 237 ML LIQUID PO (08:07)
--- NOTE | 2024-12-19 10:49 | CASEMGMT ---
[place] Met with patient to complete [place] form. [place] form and its content were verbally explained and patient's questions were answered to the best of my ability.? Patient voiced understanding and signed DAV[place] form.? Patient provided a copy of signed [place] form and original placed in patient's chart.? Patient had no further questions. Nayeli Littlejohn, Discharge Planning Asst
[2024-12-19] MEDS: APIXABAN 5 MG TABLET PO (11:14)
[2024-12-19] MEDS: 0.9% Saline Lock 10 ML Syringe IV (11:16)
[2024-12-19 11:22] VITALS: BP 105/68; PULSE 40; RESP 18; TEMP 37; O2SAT 95
--- NOTE | 2024-12-19 11:40 | PCM.DC.SUM ---
Providers Date of Admission: 12/18/24 Date of Discharge: 12/19/24 Primary Care Physician: Dr. Hansel Maxwell, Consultations 12/18/24 10:59 Consult: Hospitalist Routine Consulting Provider: Orin Real Reason for Consult: Medical management s/p Right reverse total shoulder arthroplasty EMERGENT Consult: No MD Notified: Yes Date Notified: 12/18/24 Time Notified: 13:22 Method of Notification: Text Reason For Visit: Total Shoulder Replacement, Reverse Diagnosis Discharge Diagnosis (1) Longstanding persistent atrial fibrillation: Status: Chronic Code(s): I48.11 - Longstanding persistent atrial fibrillation (2) Status post reverse total arthroplasty of right shoulder: Status: Acute Code(s): Z96.611 - Presence of right artificial shoulder joint Plan: Postop day 1 status post right reverse total shoulder arthroplasty 1. Will continue PT today. Nonweightbearing to right upper remedy. Sling at all times. 2. plan for discharge this afternoon following PT 3. Patient will follow up for post op appointment as previously scheduled in 2 weeks 4. Patient has outpatient PT appointment 2 weeks as previously scheduled 5. WBC 17.4 acute reactive leukocytosis: secondary to pre operative decadron. no acute systemic signs of infection. will monitor, and likely self resolve. 6. H/H 11.5/33.8: post operavtive anemia secondary to acute blood loss intraoperatively. Patient is asymptomatic at this time. No intraoperative complications. will continue to monitor. no acute interventions. 7. DVT prophylaxis : Resume Eliquis today. 8. Pain control: patient instructed to take tylenol 500mg 2 tablets TID. and oxycodone 1-2 tablets every 4-6 hours only as needed for pain control. 9. Patient also given a prescription of senna 10. ok to remove post op dressing. post op day 5 Medications at Discharge Home Medications nitroglycerin 0.4 mg sublingual tablet 0.4 mg sublingual Q5-15M PRN chest pain #25 tabs 03/08/23 apixaban 5 mg tablet (Eliquis) 5 mg PO BID #60 tabs 02/21/24 atenolol 25 mg tablet 25 mg PO DAILY #90 tabs 02/21/24 atorvastatin 10 mg tablet 10 mg PO DAILY #90 tabs 09/04/24 clindamycin HCl 300 mg capsule 600 mg PO .COMPLEX PRN PRIOR TO DENTAL APPOINTMENTS 08/05/25 sacubitril 24 mg-valsartan 26 mg tablet (Entresto) 1 tab PO BID #180 tabs 10/31/24 amlodipine 5 mg tablet 5 mg PO QHS 11/22/24 acetaminophen 500 mg tablet 1,000 mg (2 x 500 mg) PO Q8 #180 tabs 12/19/24 oxycodone 5 mg tablet 2.5 mg (1/2 x 5 mg) PO .q4-6hrs prn PRN Pain Score 4-10 7 days #20 tabs 12/19/24 sennosides 8.6 mg-docusate sodium 50 mg tablet (Stimulant Laxative Plus) 2 tab PO BID #14 tabs 12/19/24 Hospital Course Operations - (Reverse total shoulder arthroplasty) Summary of Care Provided Hospital Course: Patient is s/p right reverse total shoulder arthroplasty with Dr. Shaw 12/18/2024. Patient resting comfortably in bed. Rates pain 3/10. States taking Tylenol and oxycodone as needed and ice help to relieve pain. Patient has been up with therapy. Sling in place at all times right upper extremity. Afebrile, no chest pain, shortness of breath, negative calf pain/ erythema, and no other signs of DVT. Physical Exam Narrative Patient resting comfortably in bed side chair Sling in place No signs of acute distress Satting well on room air Limb is warm to touch, Sensation intact throughout entire upper extremity Radial pulses bounding Dressing clear dry intact Calf nontender to palpation, no erythema, no edema. Negative Homans Weight / BMI Weight Weight: 82.146 kg Body Mass Index (BMI) 25.9 ABG / Lab / Microbiology Data 12/19/24 05:25 12/19/24 05:25 Laboratory: Laboratory Results - last 24 hr 12/18/24 15:34: POC Glucose 196 H 12/19/24 05:25: WBC 17.4 H, RBC 3.47 L, Hgb 11.5 L, Hct 33.8 L, MCV 97.4 H, MCH 33.1 H, MCHC 34.0, RDW Std Deviation 46.9 H, RDW Coeff of Jacky 13.2, Plt Count 95 L, MPV 11.1, Sodium 138, Potassium 4.7, Chloride 106, Carbon Dioxide 20.2 L, Anion Gap 12, BUN 25 H, Creatinine 1.26 H, Estim Creat Clear Calc 45.06 L, Est GFR (MDRD) Non-Af 56 L, BUN/Creatinine Ratio 20.0, Glucose 150 H, Calcium 8.5 Microbiology: Microbiology 11/29/24 08:28 Swab (Method) Nasal Screen MRSA/MSSA - Final D/C Instructions Discharge Activity: May Shower Weight Bearing Status: No weight bearing (Right upper extremity) Call your doctor if your incision/area has: Continuous Slow Oozing, Sudden Increased Bleeding, Increased Pain/ Swelling, Increased Redness, Foul Smelling Discharge and Swelling at the incision site Call your doctor if you observe: Fever of 101 or Higher, Numbness or Tingling, Inability to urinate, Inability to have a bowel movement, Shortness of breath, Chest pain, Increased palpitations (irregular heartbeat), Calf discomfort and Uncontrolled pain Remove Dressing in: 1 week Cleanse incision/area with: Soap & Water and Keep Dressing Clean & Dry DC O2, CPAP, BIPAP Needs Home O2 Discharge instructions: No DC home with Oxygen: No Meaningful Use Info Meaningful Use Meaningful Use Diagnoses (Choose all that apply): None applicable Discharge Plan Admission Admit Date/Time: 12/18/24 11:00 Attending Provider: Jose Shaw Primary Care Provider: Hansel Maxwell Consulting Providers: Jose Dennis Discharge Orders/Prescriptions Prescriptions: New acetaminophen 500 mg Tablet 1,000 mg PO Q8 Qty: 180 0RF sennosides-docusate sodium [Stimulant Laxative Plus] 8.6-50 mg Tablet 2 tab PO BID Qty: 14 0RF oxycodone 5 mg Tablet 2.5 mg PO .q4-6hrs prn PRN (Reason: Pain Score 4-10) 7 Days Qty: 20 0RF Continued nitroglycerin 0.4 mg tablet, sublingual 0.4 mg SUBLINGUAL Q5-15M PRN (Reason: chest pain) Qty: 25 3RF Eliquis 5 mg tablet 5 mg PO BID Qty: 60 11RF Patient Comments: DR. SHAW TO ADVISE WHEN TO STOP atenolol 25 mg tablet 25 mg PO DAILY Qty: 90 3RF clindamycin HCl 300 mg capsule 600 mg PO .COMPLEX PRN (Reason: PRIOR TO DENTAL APPOINTMENTS) Rx Instructions: 600 mg orally 1 hour prior to dental procedure; PRN; amlodipine 5 mg tablet 5 mg PO QHS atorvastatin 10 mg tablet 10 mg PO DAILY Qty: 90 3RF sacubitril-valsartan [Entresto] 24-26 mg tablet 1 tab PO BID Qty: 180 3RF Referrals / Follow Up: Hansel Maxwell DO [Primary Care Provider, Medical] Disposition Disposition (needs filled in before D/C Order can be placed): Home, Self Care
--- NOTE | 2024-12-19 12:01 | PCM.PN.HOSP ---
Subjective Subjective Doing well with physical therapy, pain is controlled Objective Data Objective Data Vital Signs: Vital Signs Temp Pulse Resp BP Pulse Ox O2 Del Method O2 Flow Rate 98.6 F 40 L 18 105/68 95 Room Air 2 12/19/24 11:22 12/19/24 11:22 12/19/24 11:22 12/19/24 11:22 12/19/24 11:22 12/19/24 11:22 12/19/24 08:11 FiO2 99 12/18/24 21:18 Oxygen Flow Rate (L/min) 2 Oxygen Delivery Method Room Air Weight: 181 lb 1.6 oz Body Mass Index (BMI) 25.9 Intake & Output: Intake and Output for Last 24 Hours 12/18/24 12/19/24 12/20/24 03:59 03:59 03:59 Intake Total 3072 / 3072 120 / 120 Output Total 825 / 825 400 / 400 Balance 2247 / 2247 -280 / -280 Lab / Micro Data 12/19/24 05:25 12/19/24 05:25 Labs: Laboratory Results - last 24 hr 12/18/24 15:34: POC Glucose 196 H 12/19/24 05:25: WBC 17.4 H, RBC 3.47 L, Hgb 11.5 L, Hct 33.8 L, MCV 97.4 H, MCH 33.1 H, MCHC 34.0, RDW Std Deviation 46.9 H, RDW Coeff of Jacky 13.2, Plt Count 95 L, MPV 11.1, Sodium 138, Potassium 4.7, Chloride 106, Carbon Dioxide 20.2 L, Anion Gap 12, BUN 25 H, Creatinine 1.26 H, Estim Creat Clear Calc 45.06 L, Est GFR (MDRD) Non-Af 56 L, BUN/Creatinine Ratio 20.0, Glucose 150 H, Calcium 8.5 Micro: Microbiology 11/29/24 08:28 Swab (Method) Nasal Screen MRSA/MSSA - Final Physical Exam Narrative General: Alert, Oriented x3, Cooperative, No apparent distress HEENT: Atraumatic, PERRLA, EOMI, Normocephalic Oral: Moist Mucosa Neck: Supple, No JVD Lungs: Clear to auscultation, Normal air movement, No rhonchi, No wheeze, No rales Cardiovascular: Regular rate, Regular Rhythm, Normal S1, Normal S2, No murmurs Abdomen: Soft, Non Tender, Non-Distended, No Hepato-splenomegaly Extremities: No edema, Capillary Refill Less than 3 Seconds Skin: Dressing CDI Musculoskeletal: Right arm in a sling Neurological: No focal neurological deficits, moves all of his extremities except for his right upper extremity status post surgery Psych/Mental Status: Normal Affect, Appropriate Assessment & Plan Assessment/Plan (1) Longstanding persistent atrial fibrillation: PLAN: Plan 1. Rotator cuff surgery 12/18/2024 ? PT/OT ? Discharge per primary ? He is stable for discharge ? Leukocytosis is likely reactive and renal functions improved from earlier this month 2. CAD status post CABG/AVR and aortic root repair/A-fib/essential HTN/HLD ? Resume his home medications ? Can resume Eliquis on discharge if okay with surgery ? Blood pressures are stable ? Echo in 2023 with an EF of 40% Charges/Coding Visit Charges Office Visits / Consults: 86526 OV L3 Est 20min
--- NOTE | 2024-12-19 12:08 | CASEMGMT ---
Noted OT ria. RN CM into pt room, pt sitting up in chair in no distress. Pt denies any homegoing needs. Pt has OP therapy set up. Pt reports feeling safe to return home.
[2024-12-19 13:31] VITALS: BP 104/80; PULSE 39; RESP 18; TEMP 36.5; O2SAT 94
--- NOTE | 2024-12-19 14:01 | PHA.DC_ITS ---
Pharmacy [facility] Counseling Pharmacy Service has performed discharge medication reconciliation and counseling for this patient. 1. ACETAMINOPHEN 1000MG PO Q8 2. OXYCODONE 2.5MG PO Q4-6H PRN PAIN 3. SENNA/DOCUSATE 2T PO BID The patient's discharge medication list was reviewed for discrepancies and discrepancies were resolved. The patient was counseled on the following discharge medications and changes in medications for homegoing were reviewed. The Reason for Use, instructions for use, and potential side effects were reviewed for all new medications. The patient's questions regarding all of their medications were answered. The patient was able to verbally demonstrate an understanding of their discharge medications. Medications at Discharge Home Medications nitroglycerin 0.4 mg sublingual tablet 0.4 mg sublingual Q5-15M PRN chest pain #25 tabs 03/08/23 apixaban 5 mg tablet (Eliquis) 5 mg PO BID #60 tabs 02/21/24 atenolol 25 mg tablet 25 mg PO DAILY #90 tabs 02/21/24 atorvastatin 10 mg tablet 10 mg PO DAILY #90 tabs 09/04/24 clindamycin HCl 300 mg capsule 600 mg PO .COMPLEX PRN PRIOR TO DENTAL APPOINTMENTS 10/31/24 sacubitril 24 mg-valsartan 26 mg tablet (Entresto) 1 tab PO BID #180 tabs 10/31/24 amlodipine 5 mg tablet 5 mg PO QHS 11/22/24 acetaminophen 500 mg tablet 1,000 mg (2 x 500 mg) PO Q8 #180 tabs 12/19/24 oxycodone 5 mg tablet 2.5 mg (1/2 x 5 mg) PO .q4-6hrs prn PRN Pain Score 4-10 7 days #20 tabs 12/19/24 sennosides 8.6 mg-docusate sodium 50 mg tablet (Stimulant Laxative Plus) 2 tab PO BID #14 tabs 12/19/24
== END 2024-12-19 13:35 | disposition home or self-care (01) ==
LOC: SDC 11:21 → MS3 11:21
PROVIDERS: Anesthesiology; Admitting Provider Student in an Organized Health Care Education/Training Program; Referring Provider Student in an Organized Health Care Education/Training Program; Visit Provider Student in an Organized Health Care Education/Training Program
PROC: (CPT 23472; principal; 2024-12-18 09:30)
DX: M19.011 Primary osteoarthritis, right shoulder (principal); I11.0 Hypertensive heart disease with heart failure; I50.42 Chronic combined systolic (congestive) and diastolic (congestive) heart failure; I48.11 Longstanding persistent atrial fibrillation; I42.9 Cardiomyopathy, unspecified; Z87.891 Personal history of nicotine dependence; I25.10 Atherosclerotic heart disease of native coronary artery without angina pectoris; Z79.01 Long term (current) use of anticoagulants; Z79.899 Other long term (current) drug therapy; E78.00 Pure hypercholesterolemia, unspecified; Z95.0 Presence of cardiac pacemaker; M75.121 Complete rotator cuff tear or rupture of right shoulder, not specified as traumatic
CPT/HCPCS: 23472; 01638; 36415; 73030; 80048; 82962; 83735; 85025; 85027; 87081; 94668; 96361; 96365; 96366; 97166; 97535; 99221; C1776; A4216; G0378; J2405; J3475

== ENCOUNTER → 2025-01-10 | Outpatient (CLI) | payer MEDICARE, BC, SELFPAY ==
--- NOTE | 2025-01-10 12:17 | VDUE_ITS ---
Reason For Study Reason For Study: Pain in right arm Right Proximal Left Proximal Right jugular vein is spontaneous, widely patent, Left subclavian vein is spontaneous, widely patent, phasic, with no intraluminal echogenicity noted. phasic, with no intraluminal echogenicity noted. Right subclavian vein is spontaneous, widely patent, phasic, with no intraluminal echogenicity noted. Right Lower Arm Right radial vein is compressible. Right ulnar vein is compressible. Right Arm Right axillary vein is spontaneous, patent, phasic, competent, compressible and demonstrates augmentation. Right brachial vein is compressible. Right cephalic vein is compressible. Right basilic vein is compressible. Procedure This was a unilateral right upper extremity venous doppler examination. Exam performed in department. A preliminary report was called and/or faxed to Dr. Barry. VL/Venous Duplex US, Unilateral Interpretation Summary Deep veins of the right upper extremity are patent and compressible segmentally . There is no evidence of deep vein thrombosis. The superficial veins of the right upper extremity, the basilic and cephalic veins, are patent and compressible. There is no evidence of right upper extremity superficial thrombo phlebitis involving the veins imaged. The left subclavian vein is patent. Ordering Physician: Jose Barry Referring Physician: Hansel Maxwell Performed By: Debra Landeros RVT ???
== END | disposition home or self-care (01) ==
LOC: CVS 12:13
PROVIDERS: Referring Provider Student in an Organized Health Care Education/Training Program; Visit Provider Student in an Organized Health Care Education/Training Program
DX: M79.621 Pain in right upper arm (principal)
CPT/HCPCS: 93971